=== PATIENT | female | born 1975 | race Caucasian/White ===

== ENCOUNTER 2018-03-22 18:03 | Emergency (ER) | payer OTHER ==
[2018-03-22 19:41] LABS: ABS Basophils 0.1 10^3/ul (0-0.2); ABS Eosinophils 0.3 10^3/ul (0-0.6); ABS Lymphocytes 1.5 10^3/ul (1.0-4.8); ABS Monocytes 0.6 10^3/ul (0-0.8); ABS Neutrophils 6.7 10^3/ul (1.5-7.7); ABS Nucleated RBC 0 10^3/ul; Eosinophil % 2.7 % (0-6); Hematocrit 35 % (35-47); Hemoglobin 11.8 g/dl (12.0-16.0); Lymphocyte % 16.7 % (25-47); Mean Corpuscular HGB Conc 34 g/dl (31-36); Mean Corpuscular Hemoglobin 29 pg (27-31); Mean Corpuscular Volume 87 fL (80-97); Mean Platelet Volume 8.3 um3 (7.4-10.4); Nucleated Red Blood Cells % 0; Platelet Count 315 10^3/ul (150-450); Red Blood Count 4.04 10^6/ul (4.00-5.40); Red Cell Distribution Width 14 % (10.5-15); White Blood Count 9.2 10^3/ul (3.5-10.8)
[2018-03-22 19:58] LABS: Urine Appearance Cloudy; Urine Blood Negative (Negative); Urine Color Amber; Urine Ketones Negative (Negative); Urine Protein Negative (Negative); Urine Specific Gravity 1.015 (1.010-1.030); Urine Urobilinogen Positive (Negative)
[2018-03-22 20:03] LABS: EGFR Non-African American 71.8 (>60)
--- NOTE | 2018-03-22 20:26 | ED ---
Skin Complaint - HPI Summary HPI Summary: Complains of chronic bilateral lower extremity edema and swelling with new onset redness x 3 weeks. Patient states she's been diagnosed by pcp with cellulitis, has tried Keflex 2 weeks, then Bactrim 7 days with no improvement in symptoms. Patient on Lasix 20mg Q am for chronic lower extremity edema. Patient also states left side back pain, dec urinating, headache. History of headaches, states this headache is the same as her normal headache. Denies fever, cough, sore throat, CP, SOB, N/V/D, abdomen pain, change in urine or vaginal symptoms. Medical history is hypothyroid. History of kidney stones. Positive smoker, occasional EtOH, denies illegal drug use. States hard to exercise due to chronic back pain. - History of Current Complaint Chief Complaint: EDGeneral Time Seen by Provider: 03/22/18 18:25 Stated Complaint: BOTH LEGS SWOLLEN/LT FLANK PAIN Hx Obtained From: Patient Onset/Duration: Started Weeks Ago Timing: Constant Onset Severity: Mild Current Severity: Severe Pain Intensity: 9 Pain Scale Used: 0-10 Numeric Skin Location: Discrete, Leg Aggravating Symptom(s): Touch Alleviating Symptom(s): Nothing Associated Signs & Symptoms: Tenderness Related History: Use of Diuretics - Allergy/Home Medications Allergies/Adverse Reactions: Allergies Allergy/AdvReac Type Severity Reaction Status Date / Time bismuth subsalicylate Allergy Rash And Verified 03/22/18 18:26 [From Pepto-Bismol] Itching codeine Allergy Altered Verified 03/22/18 18:26 Mental Status diphenhydramine Allergy Hives Verified 03/22/18 18:26 [From Benadryl Allergy/Cold] fish oil Allergy Unknown Verified 03/22/18 18:26 Reaction Details lorazepam [From Ativan] Allergy Hives Verified 03/22/18 18:26 povidone-iodine Allergy Hives Verified 03/22/18 18:26 [From Betadine] soap [From Betadine] Allergy Hives Verified 03/22/18 18:26 sorbitol Allergy Anaphylatic Verified 03/22/18 18:26 Shock famotidine [From Pepcid] AdvReac Nausea And Verified 03/22/18 18:26 Vomiting ADHESIVE TAPE Allergy Severe Blisters Uncoded 03/22/18 18:26 ANTIHISTAMINES Allergy Severe Hives Uncoded 03/22/18 18:26 IODINE Allergy Severe Hives Uncoded 03/22/18 18:26 SHELLFISH Allergy Severe Anaphylatic Uncoded 03/22/18 18:26 Shock PMH/Surg Hx/FS Hx/Imm Hx Endocrine/Hematology History: Reports: Hx Thyroid Disease - hypothyroidism, Hx Anemia Denies: Hx Anticoagulant Therapy, Hx Bone Marrow Disease, Hx Diabetes, Hx Sickle Cell Disease Cardiovascular History: Denies: Hx Hypertension, Hx Pacemaker/ICD Respiratory History: Reports: Hx Asthma - CHILD GI History: Reports: Hx Gall Bladder Disease History: Reports: Hx Kidney Infection, Hx Kidney Stones - PASSED SEVERAL LITHO STENTS Denies: Hx Renal Disease Musculoskeletal History: Reports: Hx Arthritis, Hx Back Problems - Chronic Sensory History: Denies: Hx Contacts or Glasses, Hx Hearing Aid Opthamlomology History: Denies: Hx Contacts or Glasses Neurological History: Reports: Hx Headaches, Hx Migraine, Other Neuro Impairments/Disorders - MULTIPLE BACK INJURIES OVER THE YEARS DUE TO STRENOUS JOB. Psychiatric History: Reports: Hx Depression Denies: Hx Panic Disorder - Surgical History Surgery Procedure, Year, and Place: 1988 L 4TH TOE [place]. 1997 L THUMB [facility] [place]. 1998 L HAND [place]. 2005 APPY [facility] [place]. 2009 KRISTY [facility] [place]. 2011 STENT LITHO [facility] [place]. 2011 ONE STENT AND LITHO [facility] [place]. 2012 LEEP [facility] [place]. 2017 LEFT HIP ABCESS Hx Anesthesia Reactions: No Infectious Disease History: No Infectious Disease History: Denies: Traveled Outside the [place] in Last 30 Days - Social History Alcohol Use: None Substance Use Type: Reports: Marijuana Substance Use Comment - Amount & Last Used: On suboxone Smoking Status (MU): Light Every Day Tobacco Smoker Type: Cigarettes Amount Used/How Often: 5 cigarettes/day Have You Smoked in the Last Year: Yes Review of Systems Constitutional: Negative Eyes: Negative ENT: Negative Cardiovascular: Negative Respiratory: Negative Gastrointestinal: Negative Positive: flank pain Musculoskeletal: Negative Skin: Negative Neurological: Negative Psychological: Normal All Other Systems Reviewed And Are Negative: Yes Physical Exam - Summary Physical Exam Summary: Bilateral lower extremity edema with areas of purple thickened skin. No extra warmth, ulcers, weeping noted to the feet, ankles.. PMS intact distally on both lower extremities. Bilateral calves soft nontender, no erythema. Positive active flexion and extension of bilateral ankles and knees. No evidence of trauma. Triage Information Reviewed: Yes Vital Signs On Initial Exam: Initial Vitals Temp Pulse Resp BP Pulse Ox 98.9 F 83 18 109/50 100 03/22/18 18:07 03/22/18 18:07 03/22/18 18:07 03/22/18 18:07 03/22/18 18:07 Vital Signs Reviewed: Yes Appearance: Positive: Well-Appearing Skin: Positive: Warm Head/Face: Positive: Normal Head/Face Inspection Eyes: Positive: Normal Neck: Positive: Supple Respiratory/Lung Sounds: Positive: Clear to Auscultation Cardiovascular: Positive: Normal Abdomen Description: Positive: Nontender Musculoskeletal: Positive: Normal Neurological: Positive: Normal Psychiatric: Positive: Normal AVPU Assessment: Alert - Dom Coma Scale Best Eye Response: 4 - Spontaneous Best Motor Response: 6 - Obeys Commands Best Verbal Response: 5 - Oriented Coma Scale Total: 15 Diagnostics - Vital Signs Vital Signs Temp Pulse Resp BP Pulse Ox 03/22/18 18:07 98.9 F 83 18 109/50 100 - Laboratory Lab Results: Lab Results 03/22/18 03/22/18 03/22/18 Range/Units 19:23 19:23 19:23 WBC 9.2 (3.5-10.8) 10^3/ul RBC 4.04 (4.00-5.40) 10^6/ul Hgb 11.8 L (12.0-16.0) g/dl Hct 35 (35-47) % MCV 87 (80-97) fL MCH 29 (27-31) pg MCHC 34 (31-36) g/dl RDW 14 (10.5-15) % Plt Count 315 (150-450) 10^3/ul MPV 8.3 (7.4-10.4) um3 Neut % (Auto) 72.7 (38-83) % Lymph % (Auto) 16.7 L (25-47) % Cobb % (Auto) 7.0 (0-7) % Eos % (Auto) 2.7 (0-6) % Baso % (Auto) 0.9 (0-2) % Absolute Neuts (auto) 6.7 (1.5-7.7) 10^3/ul Absolute Lymphs (auto) 1.5 (1.0-4.8) 10^3/ul Absolute Monos (auto) 0.6 (0-0.8) 10^3/ul Absolute Eos (auto) 0.3 (0-0.6) 10^3/ul Absolute Basos (auto) 0.1 (0-0.2) 10^3/ul Absolute Nucleated RBC 0 10^3/ul Nucleated RBC % 0 ESR Pending Sodium 138 (135-145) mmol/L Potassium 3.5 (3.5-5.0) mmol/L Chloride 107 (101-111) mmol/L Carbon Dioxide 22 (22-32) mmol/L Anion Gap 9 (2-11) mmol/L BUN 8 (6-24) mg/dL Creatinine 0.87 (0.51-0.95) mg/dL Est GFR ( Amer) 86.8 (>60) Est GFR (Non-Af Amer) 71.8 (>60) BUN/Creatinine Ratio 9.2 (8-20) Glucose 93 (70-100) mg/dL Lactic Acid 0.5 (0.5-2.0) mmol/L Calcium 9.4 (8.6-10.3) mg/dL Total Bilirubin 0.30 (0.2-1.0) mg/dL AST 37 (13-39) U/L ALT 43 (7-52) U/L Alkaline Phosphatase 104 (34-104) U/L C-Reactive Protein 10.76 H (<8.01) mg/L Total Protein 7.2 (6.4-8.9) g/dL Albumin 4.1 (3.2-5.2) g/dL Globulin 3.1 (2-4) g/dL Albumin/Globulin Ratio 1.3 (1-3) Beta HCG, Quant < 0.60 mIU/mL Urine Color Urine Appearance Urine pH (5-9) Ur Specific [place] (1.010-1.030) Urine Protein (Negative) Urine Ketones (Negative) Urine Blood (Negative) Urine Nitrate (Negative) Urine Bilirubin (Negative) Urine Urobilinogen (Negative) Ur Leukocyte Esterase (Negative) Urine Glucose (Negative) 03/22/18 Range/Units 19:41 WBC (3.5-10.8) 10^3/ul RBC (4.00-5.40) 10^6/ul Hgb (12.0-16.0) g/dl Hct (35-47) % MCV (80-97) fL MCH (27-31) pg MCHC (31-36) g/dl RDW (10.5-15) % Plt Count (150-450) 10^3/ul MPV (7.4-10.4) um3 Neut % (Auto) (38-83) % Lymph % (Auto) (25-47) % Cobb % (Auto) (0-7) % Eos % (Auto) (0-6) % Baso % (Auto) (0-2) % Absolute Neuts (auto) (1.5-7.7) 10^3/ul Absolute Lymphs (auto) (1.0-4.8) 10^3/ul Absolute Monos (auto) (0-0.8) 10^3/ul Absolute Eos (auto) (0-0.6) 10^3/ul Absolute Basos (auto) (0-0.2) 10^3/ul Absolute Nucleated RBC 10^3/ul Nucleated RBC % ESR Sodium (135-145) mmol/L Potassium (3.5-5.0) mmol/L Chloride (101-111) mmol/L Carbon Dioxide (22-32) mmol/L Anion Gap (2-11) mmol/L BUN (6-24) mg/dL Creatinine (0.51-0.95) mg/dL Est GFR ( Amer) (>60) Est GFR (Non-Af Amer) (>60) BUN/Creatinine Ratio (8-20) Glucose (70-100) mg/dL Lactic Acid (0.5-2.0) mmol/L Calcium (8.6-10.3) mg/dL Total Bilirubin (0.2-1.0) mg/dL AST (13-39) U/L ALT (7-52) U/L Alkaline Phosphatase (34-104) U/L C-Reactive Protein (<8.01) mg/L Total Protein (6.4-8.9) g/dL Albumin (3.2-5.2) g/dL Globulin (2-4) g/dL Albumin/Globulin Ratio (1-3) Beta HCG, Quant mIU/mL Urine Color Jennifer Urine Appearance Cloudy Urine pH 6.0 (5-9) Ur Specific [place] 1.015 (1.010-1.030) Urine Protein Negative (Negative) Urine Ketones Negative (Negative) Urine Blood Negative (Negative) Urine Nitrate Negative (Negative) Urine Bilirubin Negative (Negative) Urine Urobilinogen Positive A (Negative) Ur Leukocyte Esterase Negative (Negative) Urine Glucose Negative (Negative) Result Diagrams: 03/22/18 19:23 03/22/18 19:23 Lab Statement: Any lab studies that have been ordered have been reviewed, and results considered in the medical decision making process. Course/Dx - Course Course Of Treatment: Complains of chronic bilateral lower extremity edema and swelling with new onset redness x 3 weeks. Patient states she's been diagnosed by pcp with cellulitis, has tried Keflex 2 weeks, then Bactrim 7 days with no improvement in symptoms. Patient on Lasix 20mg Q am for chronic lower extremity edema. Patient also states left side back pain, dec urinating, headache. History of headaches, states this headache is the same as her normal headache. Denies fever, cough, sore throat, CP, SOB, N/V/D, abdomen pain, change in urine or vaginal symptoms. Medical history is hypothyroid. History of kidney stones. Positive smoker, occasional EtOH, denies illegal drug use. Bilateral lower extremity edema with areas of purple thickened skin. No extra warmth, ulcers, weeping noted to the feet, ankles.. PMS intact distally on both lower extremities. Bilateral calves soft nontender, no erythema. Positive active flexion and extension of bilateral ankles and knees. No evidence of trauma. No improvement with 2 courses of antibiotics. Vital signs normal. Labs unremarkable. CVA/flank tenderness but no indication of infection or hematuria in urine or labs. No indication of dehydration. ROVERTO stockings here in the ED. Rx for compression stockings. Recommend increase exercise and follow-up with primary care. - Diagnoses Provider Diagnoses: Stasis dermatitis of both legs, Venous insufficiency Discharge - Sign-Out/Discharge Documenting (check all that apply): Discharge/Admit/Transfer - Discharge Plan Condition: Stable Disposition: HOME Patient Education Materials: Stasis Dermatitis (ED), Venous Insufficiency (DC) , Leg Edema (ED) Referrals: Neri Lancaster MD [Primary Care Provider] - Additional Instructions: Exercising and movement helps reduce swelling in lower extremities. Elevate legs when sitting down. Compression stockings can also help. Follow-up with primary care. Return to the ED for any new or worsening symptoms - Billing Disposition and Condition Condition: STABLE Disposition: Home
--- NOTE | 2018-03-22 20:59 | ED ---
Progress - Progress Note Progress Note: I supervised the care of the physician nurse practitioner physician assistant and I performed a history and physical on this patient History: Chronic lower extremity edema now with dark purple changes on both legs. No fever. No wounds or skin breakdown. No improvement with Lasix or antibiotics. Physical exam: 2-3+ bilateral lower extremity edema with pitting and chronic stasis changes with purple discoloration in the lower legs bilaterally Plan: Stasis dermatitis secondary to venous insufficiency. Continue Lasix, ROVERTO stockings placed here. Increase walking. Follow-up primary care physician. Course/Dx - Course Course Of Treatment: Complains of chronic bilateral lower extremity edema and swelling with new onset redness x 3 weeks. Patient states she's been diagnosed by pcp with cellulitis, has tried Keflex 2 weeks, then Bactrim 7 days with no improvement in symptoms. Patient on Lasix 20mg Q am for chronic lower extremity edema. Patient also states left side back pain, dec urinating, headache. History of headaches, states this headache is the same as her normal headache. Denies fever, cough, sore throat, CP, SOB, N/V/D, abdomen pain, change in urine or vaginal symptoms. Medical history is hypothyroid. History of kidney stones. Positive smoker, occasional EtOH, denies illegal drug use. Bilateral lower extremity edema with areas of purple thickened skin. No extra warmth, ulcers, weeping noted to the feet, ankles.. PMS intact distally on both lower extremities. Bilateral calves soft nontender, no erythema. Positive active flexion and extension of bilateral ankles and knees. No evidence of trauma. No improvement with 2 courses of antibiotics. Vital signs normal. Labs unremarkable. CVA/flank tenderness but no indication of infection or hematuria in urine or labs. No indication of dehydration. ROVERTO stockings here in the ED. Rx for compression stockings. Recommend increase exercise and follow-up with primary care. - Diagnoses Provider Diagnoses: Stasis dermatitis of both legs, Venous insufficiency Discharge - Sign-Out/Discharge Documenting (check all that apply): Discharge/Admit/Transfer - Discharge Plan Condition: Stable Disposition: HOME Patient Education Materials: Stasis Dermatitis (ED), Leg Edema (ED), Venous Insufficiency (DC) Referrals: Neri Lancaster MD [Primary Care Provider] - Additional Instructions: Exercising and movement helps reduce swelling in lower extremities. Elevate legs when sitting down. Compression stockings can also help. Follow-up with primary care. Return to the ED for any new or worsening symptoms - Billing Disposition and Condition Condition: STABLE Disposition: Home
[2018-03-22 21:28] VITALS: BP 112/60
== END 2018-03-22 21:29 | disposition home or self-care (01) ==
LOC: ED 18:03
DX: I87.2 Venous insufficiency (chronic) (peripheral) (principal); F17.210 Nicotine dependence, cigarettes, uncomplicated; Z87.442 Personal history of urinary calculi; R60.0 Localized edema; Z88.5 Allergy status to narcotic agent
CPT/HCPCS: 36415; 80053; 81003; 83605; 84702; 85025; 85652; 86140; 87040; 99282

== ENCOUNTER 2018-11-17 13:55 | Emergency (ER) | payer MEDICARE, MEDICAID ==
[2018-11-17] MEDS ORDERED: NS 0.9% 1000 ML** 1,000 ML IV ONE (14:02)
[2018-11-17] MEDS ORDERED: Albuterol 2.5 MG/3 ML NEB.SOL* (0.083%) INH ONE ×3 (14:02)
[2018-11-17] MEDS ORDERED: methylPREDNISolone 125 MG* 2 ML VIAL IV ONE (14:02)
--- NOTE | 2018-11-17 14:24 | UC ---
UC General HPI - HPI Summary HPI Summary: Pt presents to radiology for eval of reaction. Pt with know allergies to shellfish, antihistamines. Pt had outpt CT wiht contrast. pt states felt okay during procesure. subsequently felt a tickle in throat,c hest tightness and wheeze. no treatment WINDER HAND in UC. No hives, no facial or intraoral edema. pt not meds and allergies reviewed - History of Current Complaint Chief Complaint: UCAllergicReaction Stated Complaint: MED REACTION Time Seen by Provider: 11/17/18 14:01 Hx Obtained From: Patient Hx Last Menstrual Period: 11/03/18 Onset/Duration: Sudden Onset Pain Intensity: 4 - Allergy/Home Medications Allergies/Adverse Reactions: Allergies Allergy/AdvReac Type Severity Reaction Status Date / Time diphenhydramine Allergy Severe Shortness Verified 11/17/18 14:00 [From Benadryl Allergy/Cold] of Breath fish oil Allergy Severe Vomiting Verified 11/17/18 14:00 Iodinated Contrast- Oral and Allergy Severe Difficulty Verified 11/17/18 14:20 IV Dye Breathing lorazepam [From Ativan] Allergy Intermediate Vomiting Verified 11/17/18 14:00 bismuth subsalicylate Allergy Rash And Verified 11/17/18 14:00 [From Pepto-Bismol] Itching codeine Allergy Altered Verified 11/17/18 14:00 Mental Status povidone-iodine Allergy Hives Verified 11/17/18 14:00 [From Betadine] soap [From Betadine] Allergy Hives Verified 11/17/18 14:00 sorbitol Allergy Anaphylatic Verified 11/17/18 14:00 Shock famotidine [From Pepcid] AdvReac Nausea And Verified 11/17/18 14:00 Vomiting ADHESIVE TAPE Allergy Severe Blisters Uncoded 11/17/18 14:00 ANTIHISTAMINES Allergy Severe Hives Uncoded 11/17/18 14:00 IODINE Allergy Severe Hives Uncoded 11/17/18 14:00 SHELLFISH Allergy Severe Anaphylatic Uncoded 11/17/18 14:00 Shock PMH/Surg Hx/FS Hx/Imm Hx Previously Healthy: No - chronic back pain Other History Of: Negative For: Anticoagulant Therapy - Surgical History Surgical History: Yes Surgery Procedure, Year, and Place: 1988 L [facility]TH [place]E [place]. 1997 L THUMB [facility]. 1999 L HAND [place]. 2005 APPY [facility] [place]. 2009 KRISTY [facility] [place]. 2011 STENT LITHO [facility] [place]. 2011 ONE STENT AND LITHO [facility] [place]. 2012 LEEP [facility] [place]. 2017 LEFT HIP ABCESS - Social History Occupation: Disabled Lives: With Family Alcohol Use: None Substance Use Type: Marijuana Substance Use Comment - Amount & Last Used: On suboxone Smoking Status (MU): Former Smoker Type: Cigarettes Amount Used/How Often: 5 cigarettes/day Have You Smoked in the Last Year: Yes Household Exposure Type: Cigarettes - Immunization History Most Recent Influenza Vaccination: never Most Recent Tetanus Shot: 2010 Most Recent Pneumonia Vaccination: Pt denied Review of Systems All Other Systems Reviewed And Are Negative: Yes Constitutional: Positive: Negative Skin: Negative: Rash Respiratory: Positive: Shortness Of Breath Cardiovascular: Positive: Chest Pain Physical Exam - Summary Physical Exam Summary: Vital Signs Reviewed: Yes A+Ox3, mildly anxious Eyes: Conjunctiva Clear, LEIGH. EOM intact and full ENT: Hearing grossly normal TM x 2 clear, mmoist, uvula midline, no exudate, no erythema, no intra-oral edema Neck: Positive: Supple Respiratory: Positive: No respiratory distress, No accessory muscle use + CTA throughout no w/r Cardiovascular: RRR nl s1, s2 no m/r CBT <2 sec abd soft + BS nt/nd no guarding, no distension Musculoskeletal Exam: RAM x 4 without difficulty Strength Intact, ROM Intact Neurological: Positive: Alert, + sensation throughout Psychological: Positive: Normal Response To Family Skin: Positive: no rash, no ecchymosis Triage Information Reviewed: Yes Vital Signs: Initial Vital Signs Temp 98.4 F 11/17/18 13:56 Pulse 88 11/17/18 13:56 Resp 14 11/17/18 13:56 BP 122/73 11/17/18 13:56 Pulse Ox 100 11/17/18 13:56 Re-Evaluation - Re-Evaluation First Eval Change: Improved - Pt states feels better following neb, vss - close reassessment Second Eval Change: Worse - Pt states feeling tight again in chest ad throat scratchy will give second albuterol vss -hold on epi call [facility] for transfer report Dr. Childers in ED Course/Dx - Course Course Of Treatment: states has chest tightness, sob, and throat scratchy following IV contrast dye. Pt with stable vs. Will give IVF, oxygen, albuterol, and solumendrol. Pt allergic to pepcid and benadryl. Epi at bedside. close monitoring and reassessment - Diagnoses Provider Diagnosis: Reaction to contrast media Discharge - Sign-Out/Discharge Documenting (check all that apply): Patient Departure All imaging exams completed and their final reports reviewed: No Studies - Discharge Plan Condition: Improved Disposition: TRANS HIGHER LVL OF CARE FAC Referrals: Neri Lancaster MD [Primary Care Provider] - - Billing Disposition and Condition Condition: IMPROVED Disposition: Trans Higher Lvl of Care Fac
[2018-11-17 14:42] VITALS: BP 122/60
[2018-11-17] MEDS ORDERED: EPINEPHRINE 1 MG/ML 1 ML VIAL ONE (14:47)
== END 2018-11-17 14:43 | disposition short-term general hospital (02) ==
LOC: UCEAST 13:55
DX: R07.89 Other chest pain (principal); R06.02 Shortness of breath; J39.2 Other diseases of pharynx; T50.8X5A Adverse effect of diagnostic agents, initial encounter; Y92.9 Unspecified place or not applicable; Z91.09 Other allergy status, other than to drugs and biological substances; Z88.5 Allergy status to narcotic agent; Z91.041 Radiographic dye allergy status; Z91.013 Allergy to seafood; Z91.018 Allergy to other foods; Z87.891 Personal history of nicotine dependence
CPT/HCPCS: 96374; 99214; G0463; J2930

== ENCOUNTER 2018-11-17 14:57 | Emergency (ER) | payer MEDICARE, MEDICAID ==
[2018-11-17] MEDS ORDERED: hydrOXYzine IM* 50 MG/ML VIAL IM ONE (15:03)
[2018-11-17] MEDS ORDERED: EPINEPHRINE 1 MG/ML 1 ML VIAL IM ONE (15:03)
[2018-11-17] MEDS ORDERED: EPINEPHRINE 1 MG/ML 1 ML VIAL ONE (15:04)
[2018-11-17] MEDS ORDERED: Albuterol/Ipratropium NEB.SOL* Albuterol 2.5 MG/Ipratropium 0.5 MG 3 ML INH ONE (15:10)
[2018-11-17] MEDS ORDERED: Albuterol/Ipratropium NEB.SOL* Albuterol 2.5 MG/Ipratropium 0.5 MG 3 ML ONE (15:12)
--- NOTE | 2018-11-17 15:14 | ED ---
Allergic Reaction/Systemic - HPI Summary HPI Summary: Pt is a 43 y/o female brought in by EMS who presents to the ED c/o SOB. She was sent here by Dr. Blackman from for an anaphylactic reaction. Pt received IV contrast for a CT, and shortly afterwards her sx began. Pt c/o SOB, and paresthesia and tightness of her chest and throat. She was given 125 mg of Solumedrol and 2 Albuterol treatments, which temporarily relieved her sx. Pt denies any fever, chills, erythema of eyes, sore throat, CP, cough, abdominal pain, N/V, dysuria, hematuria, myalgia, edema, rash, or dizziness. Pt has many allergies, which include diphenhydramine, lorazepam, bismuth subsalicylate, codeine, povidone-iodine, betadine, sorbitol, famotidine, and antihistamines. She denies any prior hospitalization related to allergies. PMHx asthma, but denies any cardiac disease. - History of Current Complaint Hx Obtained From: Patient Hx Last Menstrual Period: 11/03/18 Onset/Duration: Sudden Onset, Started hours ago - [employer], Still Present Timing: Constant Location: Discrete @ - throat/chest Aggravating Factor(s): Other - IV contrast Alleviating Factor(s): Other - Solumedrol and Albuterol Associated Signs And Symptoms: Positive: Difficulty Breathing, Throat Tightening - Allergies/Home Medications Allergies/Adverse Reactions: Allergies Allergy/AdvReac Type Severity Reaction Status Date / Time diphenhydramine Allergy Severe Shortness Verified 11/17/18 14:00 [From Benadryl Allergy/Cold] of Breath fish oil Allergy Severe Vomiting Verified 11/17/18 14:00 Iodinated Contrast- Oral and Allergy Severe Difficulty Verified 11/17/18 14:20 IV Dye Breathing lorazepam [From Ativan] Allergy Intermediate Vomiting Verified 11/17/18 14:00 bismuth subsalicylate Allergy Rash And Verified 11/17/18 14:00 [From Pepto-Bismol] Itching codeine Allergy Altered Verified 11/17/18 14:00 Mental Status povidone-iodine Allergy Hives Verified 11/17/18 14:00 [From Betadine] soap [From Betadine] Allergy Hives Verified 11/17/18 14:00 sorbitol Allergy Anaphylatic Verified 11/17/18 14:00 Shock famotidine [From Pepcid] AdvReac Nausea And Verified 11/17/18 14:00 Vomiting ADHESIVE TAPE Allergy Severe Blisters Uncoded 11/17/18 14:00 ANTIHISTAMINES Allergy Severe Hives Uncoded 11/17/18 14:00 IODINE Allergy Severe Hives Uncoded 11/17/18 14:00 SHELLFISH Allergy Severe Anaphylatic Uncoded 11/17/18 14:00 Shock PMH/Surg Hx/FS Hx/Imm Hx Endocrine/Hematology History: Reports: Hx Thyroid Disease - hashimotos, Hx Anemia Denies: Hx Anticoagulant Therapy, Hx Bone Marrow Disease, Hx Diabetes, Hx Sickle Cell Disease Cardiovascular History: Denies: Hx Hypertension, Hx Pacemaker/ICD Respiratory History: Reports: Hx Asthma - CHILD GI History: Reports: Hx Gall Bladder Disease History: Reports: Hx Kidney Infection, Hx Kidney Stones - PASSED SEVERAL LITHO STENTS Denies: Hx Dialysis, Hx Renal Disease Musculoskeletal History: Reports: Hx Arthritis, Hx Back Problems - Chronic Sensory History: Denies: Hx Contacts or Glasses, Hx Hearing Aid Opthamlomology History: Denies: Hx Contacts or Glasses Neurological History: Reports: Hx Headaches, Hx Migraine, Other Neuro Impairments/Disorders - MULTIPLE BACK INJURIES OVER THE YEARS DUE TO STRENOUS JOB. Psychiatric History: Reports: Hx Depression, Hx Panic Disorder - Surgical History Surgery Procedure, Year, and Place: 1988 L 4TH [place]. 1997 [place] [facility] [place] L [place]. 2005 APPY [facility] [place] 2008 KRISTY [facility] [place]. 2010 STENT LITHO [facility] [place]. 2010 ONE STENT AND LITHO [facility] [place]. 2012 L[place] [facility] [place]. 2017 LEFT HIP ABCESS Hx Anesthesia Reactions: No Infectious Disease History: Denies: Traveled Outside the in Last 30 Days - Family History Known Family History: Positive: Other - migraines, breast/uterine CA - Social History Alcohol Use: None Substance Use Type: Reports: Marijuana Substance Use Comment - Amount & Last Used: On suboxone Smoking Status (MU): Former Smoker Type: Cigarettes Amount Used/How Often: 5 cigarettes/day Have You Smoked in the Last Year: Yes Review of Systems Negative: Fever, Chills Negative: Erythema Positive: Other - tightness of throat/chest. Negative: Sore Throat Negative: Chest Pain Positive: Shortness Of Breath. Negative: Cough Negative: Abdominal Pain, Nausea Negative: dysuria, hematuria Negative: Myalgia, Edema Negative: Rash Neurological: Other - NEGATIVE: dizziness Positive: Paresthesia - chest/throat All Other Systems Reviewed And Are Negative: Yes Physical Exam - Summary Physical Exam Summary: Constitutional: Well-developed, Well-nourished, Alert. (-) Distressed Skin: Warm, Dry HENT: Normocephalic; Atraumatic Eyes: Conjunctiva normal Neck: Musculoskeletal ROM normal neck. (-) JVD, (-) Stridor, (-) Tracheal deviation Cardio: Rhythm regular, rate normal, Heart sounds normal; Intact distal pulses; The pedal pulses are 2+ and symmetric. Radial pulses are 2+ and symmetric. (-) Murmur Pulmonary/Chest wall: Effort normal. (-) Respiratory distress, (+) Wheezes, (-) Rales Abd: Soft, (-) epigastric tenderness, (-) Distension, (-) Guarding, (-) Rebound Musculoskeletal: (-) Edema Lymph: (-) Cervical adenopathy Neuro: Alert, Oriented x3 Psych: Mood and affect Normal Triage Information Reviewed: Yes Vital Signs Reviewed: Yes Re-Evaluation - Re-Evaluation First Eval Re-Evaluation Time: 16:20 Change: Improved Comment: Pts wheezes have resolved, she is feeling much better. Will observe for a total of 3 hours. Allergic Reaction Course/Dx - Course Course Of Treatment: Pt is a 43 y/o female brought in by EMS who presents to the ED c/o anaphylactic reaction to IV contrast dye. A physical exam revealed wheezes. Pts sx resolved after having a breathing treatment. The anaphylaxis was successfully aborted with Epinephrine. There was no return of symptoms. Pt is discharged with final dx of anaphylaxis and allergic reaction to contrast dye. She is agreeable with this plan. - Diagnoses Provider Diagnoses: Anaphylaxis, Allergic reaction to contrast dye Discharge - Sign-Out/Discharge Documenting (check all that apply): Patient Departure - Discharge Patient Received Moderate/Deep Sedation with Procedure: No - Discharge Plan Condition: Improved Disposition: HOME Prescriptions: EPINEPHrine [Epipen] 0.3 mg IJ ONCE PRN #2 auto.injct PRN Reason: Allergy Symptoms predniSONE TAB* [Deltasone TAB*] 50 mg PO DAILY #3 tab Patient Education Materials: Anaphylaxis (ED) Referrals: Neri Lancaster MD [Primary Care Provider] - (2-3 days) Additional Instructions: RETURN TO THE EMERGENCY DEPARTMENT FOR CHANGING OR WORSENING SYMPTOMS - Attestation Statements Document Initiated by Scribe: Yes Documenting Scribe: Concepcion Askew Provider For Whom Scribe is Documenting (Include Credential): Andrew Childers MD Scribe Attestation: Concepcion Kamara, scribed for Andrew Childers MD on 11/17/18 at 1758. Status of Scribe Document: Ready
[2018-11-17 18:14] VITALS: BP 99/67
== END 2018-11-17 18:13 | disposition home or self-care (01) ==
LOC: ED 14:57
DX: T88.6XXA Anaphylactic reaction due to adverse effect of correct drug or medicament properly administered, initial encounter (principal); R06.02 Shortness of breath; R07.89 Other chest pain; R20.2 Paresthesia of skin; T50.8X5A Adverse effect of diagnostic agents, initial encounter; Y92.532 Urgent care center as the place of occurrence of the external cause; Z91.041 Radiographic dye allergy status; Z88.5 Allergy status to narcotic agent; Z91.013 Allergy to seafood; Z88.8 Allergy status to other drugs, medicaments and biological substances; Z91.048 Other nonmedicinal substance allergy status; Z87.891 Personal history of nicotine dependence; J39.2 Other diseases of pharynx; Z91.09 Other allergy status, other than to drugs and biological substances
CPT/HCPCS: 96372; 99282; A9270-GY; J3410

== ENCOUNTER → 2019-03-15 17:45 | Observation (INO) | payer MEDICARE, MEDICAID ==
--- OUTSIDE RECORDS SUMMARY | 2019-03-14 05:58 | XMS REPORT | Continuity of Care Document ---
:1975 External Reference #:[id number] Author Name Naila Meza Care Team Providers Name Role Phone HCP given Primary Care Physician Unavailable Payers Date Identification Numbers Payment Provider Subscriber Effective: Policy Number: [id number] [facility] Birgit Lorenzanae 2018 PayID: [id number] [address] [place] [address] Effective: 2015 Policy Number: [id number] [facility] Birgit Keating Expires: 2018 PayID: [id number] [address] [place] [address] Policy Number: [id number] Medicaid Birgit Keating PayID: [id number] [address] [place] [address] Problems Active Problems Provider Date Hypothyroidism Neri Lancaster M.D. Onset: 08/29/2010 Migraine with typical aura Neri Lancaster M.D. Onset: 08/29/2010 Low back pain Neri Lancaster M.D. Onset: 11/11/2011 Degeneration of lumbar intervertebral disc Neri Lancaster M.D. Onset: 06/17 Dysthymia Neri Lancaster M.D. Onset: 01/05/2018 Family History Date Family Member(s) Observation Comments General Cervical Cancer Sister in her late 30s (as of 07/27 she is dying of this) General Thyroid Disease Sister w/ hypothyroidism; Mom had thyroidectomy b/o "it wasn't working". General Rheumatoid Arthritis Sister (1yr younger) since age 2 Father Polycystic Kidney diagnosed in his early Disease 70s Number of Children 4 First Son Kaushal Duckworth 08/21/09 First Daughter Yanelis Miner 01/29/00 Second Daughter Torrie 05/15/06 Third Daughter Lesli Duckworth Third Daughter 02/10/11 Number of Siblings Siblings: 6 (3 brothers and 3 sisters). 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) Hand Dominance 03/03/2019 Right-handed Advance Directive 08/02/2007 Health Care Proxy pt states she has a HCP Tobacco Use Start: Unknown current cigarette /2 ppd smoker ETOH Use Rarely consumes alcohol Tobacco Use Start: Unknown Non Smoker recently stopped for surgery Smoking Status Reviewed: 03/03/19 Non Smoker recently stopped for surgery Age 1st [place] 17 Years Old # [facility] 5[facility]10 Lifetime Allergies, Adverse Reactions, Alerts Active Allergies Reaction Severity Comments Date Codeine blackouts and violent 08/02/2007 Ativan rash,vomitting 08/02/2007 Anti-Hist 08/02/2007 Pepcid 08/02/2007 Pepto Bismol 08/02/2007 Shellfish 08/02/2007 control pills 08/02/2007 Benadryl 08/29/2010 Iodine 07/05/2012 Adhesives 09/05/2012 Aspartame 03/07/2013 Betadine causes welts 06/17/2015 ALL Types Of Fish 06/17/[address] scan 11/21/2018 Medications Active Medications SIG Qnty Indications Ordering Provider Date Chantix 1 pill twice 60tabs F17.210 Neri Lancaster, 10/14/2018 1mg Tablets daily to assist M.D. with smoking cessation; take with food Buprenorphine take 1/2 tablet 60tabs M54.5 Neri Lancaster, 02/02/2018 HCL-Naloxone HCL by mouth four M.D. 8-2mg times a day for Tablets Sub chronic pain; Rx due 02/23/19 F11.23 M51.36 Bupropion HCL ER (XL) take 1 tablet by 30tabs F34.1 Neri Lancaster, 01/05 mouth every morning M.D. 150mg Tablets ER 24HR for Mood Tizanidine HCL 1 by mouth three 90tabs M54.5 Neri Lancaster, 12/01/2017 4mg times a day as M.D. Tablets needed for muscle spasms Topiramate take 1 tablet by 60tabs G43.109 Neri Lancaster, 08/03/2017 50mg Tablets mouth twice a day M.D. to Reduce Migraine Frequency Ibuprofen take 1 tablet by 90tabs G43.109 Neri Lancaster, 05/28/2017 800mg Tablets mouth every 8 hours M.D. if needed for Severe Headaches Furosemide take 1 tablet by 30tabs R60.0 Neri Lancaster, 02/06/2017 20mg Tablets mouth every morning M.D. if needed for Leg Swelling Baclofen 1 by mouth up to 120tabs M51.36 Neri Lancaster, 01/18/2017 20mg Tablets every 6 hours for M.D. back pain/muscle spasms M54.5 Levothyroxine Sodium take one tablet by 30tabs E03.9 Neri Lancaster, 150mcg mouth every morning M.D. Tablets on an empty stomach; for thyroid; blood test due summer 2018 Escitalopram Oxalate take 1 tablet by 30tabs F34.1 Neri Lancaster, 2016 20mg mouth once daily for M.D. Tablets mood Sudafed 1 three times a day Unknown 30mg Tablets to four times a day for congestions and st as Needed History Medications Sulfamethoxazole/Trimethoprim DS 1 tab by 14tabs L03.116 Lolly, 2017 - 800-160mg mouth twice a Dejuan, D.O. 03/22/2018 Tablets day x7 days Cephalexin take one 40caps L03.116 Anisha, 03/04/2018 - 500mg Capsules capsule by Neri, 03/16/2018 mouth every 6 M.D. hours for left lower leg cellulitis Tizanidine HCL 1 tab by 90caps Anisha, 10/03/2017 - 4mg Capsules mouth three Neri, 12/01/2017 times a day M.D. as needed for muscle spasms Topiramate 1 daily in 120tabs G43.109 Anisha, 06/30/2017 - 25mg Tablets the evening Neri, 08/03/2017 for 1 week, M.D. then 1 pill 2x/d for 1wk, then 1 in morning and 2 in ozzie for 1 week, then 2 pills 2x/d Zomig 2.5mg 1 at onset of 18tabs G43.109 Sildannie, 04/2017 - Tablets migraine, january Neri, 04/29/2018 repeat after M.D. 2 hours if headache partially relieved; use max of 3 days/wk Hydromorphone HCL ER 1 by mouth 30units M51.36 Sildannie, 04/06/2017 - 16mg T24a every morning Neri 02/02/2018 for chronic M.D. pain M54.5 Hydromorphone HCL ER 1 by mouth once a 10units M51.36 Silcoluis, 03/29/2017 - day, at same time Shea He 04/06/2017 8mg T24a every day, for chronic pain Hydromorphone HCL 1 by mouth every 8 90tabs M54.5 Silcoff, 03/29/2017 - 4mg hours as needed for Shea He 02/02/2018 Tablets breakthrough pain M54.5 Buprenorphine 1 tablet every 120tabs M51.36 Silcoff, 03/03/2017 - HCL-Naloxone HCL 6-8hrs for chronic Shea He 03/29/2017 back pain; Rx january 8-2mg Tablets Sub be filled on or after 03/14/17; prescriber# [id number] PT For Left Shoulder evaluate and M25.512 Silcoff, 01/01/2017 - Pain And Acute On treat, modalities Shea He 08/02/2017 Chronic Low Back as needed, Pain instruct in hep M51.36 Baclofen 1 by mouth three 90tabs M51.36 Silcoff, 01/01/2017 - 20mg Tablets times a day as Shea He 01/18/2017 needed for back spasms Escitalopram Oxalate 1/2 by mouth every 30tabs F34.1 Silcoff, 09/04/2016 - day for 1 week then Shea He 11/02/2016 10mg Tablets 1 tablet daily; for mood Venlafaxine HCL ER 1 by mouth every 30tabs M51.36 Silcoluis, 07/17/2016 - morning starting Shea He 08/28/2016 75mg Tablets ER 24HR after taking the 37.5mg dose for 1 week; for mood and chronic pain Venlafaxine HCL ER 1 by mouth every day 7caps [id number] Anisha, 07/17/2016 - for 1 week then Shea He 07/24/2016 37.5mg Caps ER 24HR change to 75mg dose; for mood and chronic pain PT For Low Back please evaluate and [id number] Anisha, 07/13/2016 - Pain/DDD treat, modalities as Shea He 11/01/2016 needed, instruct in hep Duloxetine HCL 1 by mouth every day 7caps [id number] Anisha, 07/13/2016 - 30mg for 1 week then Shea He 07/17/2016 Kristie Deshpande change to 60mg dose; for mood and chronic pain Duloxetine HCL 1 by mouth every day 30caps M51.36 [facility] - 60mg (starting after 1 Shea He 07/17/2016 Kristie Deshpande week on 30mg dose); for mood and chronic pain Buprenorphine 1 tablet in the 90tabs M51.36 [facility] 07[facility]13[facility]2016 - HCL-Naloxone HCL morning and before Shea He 03/03/2017 bed, 1/2 tab at 8-2mg Tablets Sub around noon and 5 hours later prescriber# [id number] Diazepam 1 by mouth every 8 90tabs M51.36 [facility], 04/17/2016 - 5mg Tablets hours as needed for Shea He 02/05/2017 back pain/muscle spasms Buprenorphine 1/2 tab by mouth 60tabs M51.36 Silcoff, 03/31/2016 - HCL-Naloxone HCL 4x/day; for chronic Shea He 07/13/2016 pain; buprenorphine 8-2mg Tablets Sub prescriber# [id number]; rx due 06/29/16 Buprenorphine 1/2 tab by mouth 6tabs M51.36 Silcoff, 03/25/2016 - HCL-Naloxone HCL 3x/day; 1st dose Shea He 03/31/2016 03/28/16; 8-2mg Tablets Sub buprenorphine prescriber# [id number] Oxymorphone HCL ER 1 by mouth at about 30tabs M51.36 Silcoff, 02/21/2016 - 1-2pm for chronic Shea He 03/25/2016 30mg Tablets ER 12HR pain Oxymorphone HCL ER 1 by mouth every 30tabs M51.36 Silcoff, 02/21/2016 - night at around Shea He 03/25/2016 20mg Tablets ER 12HR 7-8pm for pain control; Oxymorphone HCL 1 by mouth every day 30tabs M51.36 Silcoff, 10/22/2015 - 10mg at around 4pm for Shea He 03/25/2016 Tablets back pain; rx due 02/28/16 Oxymorphone HCL 1 by mouth every 30tabs M51.36 Silcoff, 10/01/2015 - 10mg night at bedtime for Shea He 10/22/2015 Tablets back pain Oxymorphone HCL ER 1 by mouth every 30tabs M51.36 Silcoff, 09/10/2015 - evening for back Shea He 02/21/2016 30mg Tablets ER 12HR pain; may fill immediately Amitriptyline HCL take one tablet by 100tabs G47.00 Anisha, 06/17/2015 - mouth 30-60min Shea He 07/03/2015 10mg Tablets before bed forr sleep; may inc by 1 pill every 3 nights, to max of 5/night Morphine Sulfate ER 1 by mouth every day 30tabs M51.36 Sildannie, 2014 - at ~3-4pm; for Shea He 09/10/2015 30mg Tablets ER chronic back pain; due 08/18/15 M54.9 Morphine Sulfate 1 by mouth every 30tabs M51.36 Neri Lancaster, 2014 - ER morning; for Shea 03/25/2016 60mg Tablets chronic back pain ER M54.9 Morphine Sulfate 1 by mouth at same 30caps 724.2 Neri Lancaster 2014 - ER time every day (in Shea 04/22/2015 50mg Caps ER the morning); for 24HR chronic back pain 722.52 724.5 Morphine Sulfate 1 by mouth every 60tabs 724.2 Neri Lancaster, 2014 - ER morning and again Shea 05/20/2015 30mg Tablets in mid afternoon; ER for chronic back pain 722.52 724.5 Methadone HCL 3 by mouth every 724.2 Neri Lancaster, 03/20/2015 - 5mg day; decrease by 1 M.DFer 04/10/2015 Tablets pill every week until you are off of it completely Morphine Sulfate 1 by mouth every 30caps 724.2 Neri Lancaster, 2014 - ER evening; for .D. 04/22/2015 30mg Caps ER chronic pain; due 24HR 03/25/15 722.52 724.5 Levothyroxine Sodium take 1 tablet by 30tabs E03.9 Anisha, 03/05/2015 - 175mcg mouth every Shea He 11/02/2016 Tablets morning on an empty stomach Methadone HCL 8 pills/day, in 190tabs 724.2 Anisha, 03/04/2015 - 5mg Tablets 3 divided doses; Shea He 03/20/2015 decrease by 1 pill/wk; for chronic back pain Compression Stockings use daily; put 1Pair 782.3 Anisha, 03/04/2015 - 20-30 mm HG on in in the Shea He 04/03/2015 Knee High morning and off at bedtime; please also measure for the stockings. Furosemide 1 by mouth in 10tabs 782.3 Anisha, 11/30/2014 - 20mg Tablets the morning if Shea He 12/05/2014 needed for leg swelling Methadone HCL 4 tabs in 300tabs 724.2 [facility], 11/30/2014 - 5mg Tablets morning; 3 tabs Shea He 03/04/2015 in afternoon and evening; doses taken about 8 hours apart; for chronic back pain Methadone HCL 3 tabs in 240tabs 724.2 [facility], 11/11/2014 - 5mg Tablets morning and Shea He 11/30/2014 evening, 2 tabs in afternoon; doses should be split about 8 hours apart; for chronic back pain Methadone HCL 2 tabs by mouth 180tabs 724.2 Silcoluis, 09/28/2014 - 5mg Tablets every 8 hours Shea He 11/11/2014 for pain Promethazine HCL take 1 tablet by 20tabs 787.02 Silcoluis, 09/14/2014 - 25mg Tablets mouth every 4 Shea He 10/15/2014 hours as needed for nausea Methadone HCL 1.5 pills in 724.2 Silcoluis, 09/12/2014 - 5mg Tablets morning and Shea He 09/28/2014 evening, 1 pill in afternoon; doses should be spaced about 8hrs apart Methadone HCL 1 by mouth every 90tabs 724.2 Silcoluis, 09/04/2014 - 5mg Tablets 8 hours for Shea He 09/12/2014 chronic pain Hydrocodone-Acetaminophe 1 by mouth every 180tabs 724.2 Silcoff, 2013 - n 4 hours as Shea He 09/04/2014 10-325mg Tablets needed for pain Levothyroxine Sodium take 1 tablet by 42tabs 244.9 Silcoff, 08/01/2013 - 175mcg mouth in the Shea He 03/05/2015 Tablets morning on an empty stomach, 3x/wk (Wed, Wed, Wed) Levothyroxine Sodium take 1 tablet by 54tabs 244.9 Silcoluis, 08/01/2013 - 200mcg mouth in the Shea He 03/05/2015 Tablets morning on an empty stomach 4x/wk (on , , Wed and Sundays) B Complex 1 by mouth once 729.82 Silcoluis, 06/06/2013 - Tablets daily for muscle Shea He 12/05/2013 cramps; stop after a couple of months if not helpful Bactrim DS 1 by mouth twice 6tabs 599.0 Silcoluis, 06/06/2013 - 800-160mg Tablets a day for Shea He 06/09/2013 urinary tract infection Levothyroxine Sodium take 1 tablet by 90tabs 244.9 Silcoff, 12/05/2012 - 200mcg mouth in the Shea He 08/01/2013 Tablets morning on an empty stomach; blood test due mid January Levothyroxine Sodium take 1 tablet by 90tabs 244.9 Anisha, 08/16/2012 - 175mcg mouth every Shea He 12/05/2012 Tablets morning on an empty stomach; next thyroid blood test due April 2013 Levothyroxine Sodium take 1 tab in 90tabs 244.9 Anisha, 06/07/2012 - 150mcg the morning on Shea He 08/16/2012 Tablets an empty stomach; for thyroid Diazepam 1 by mouth every 90tabs M51.36 Anisha, 04/06/2012 - 5mg Tablets 8 hours as Shea He 03/30/2016 needed for back pain/muscle spasms PT For Acute On Chronic please evaluate Daniel4.2 Anisha, 04/06/2012 - Low Back Pain/DDD and treatNeri M.D. 04/26/2012 modalities prn, instruct in hep Methylprednisolone Dose take as directed 1pack 724.2 Anisha, 03/22/2012 - Pack Shea He 03/28/2012 4mg Tablets Diazepam 1/2-1 by mouth 10tabs 724.2 Anisha, 03/22/2012 - 10mg Tablets every 8 hours as Shea He 04/06/2012 needed for back pain and muscle spasms Oxycodone HCL 1/2-1 by mouth 180tabs 724.2 Anisha, 03/22/2012 - 15mg Tablets every 4 hours as Shea He 06/05/2014 needed for pain Percocet 1-2 every 4 724.2 Unknown 03/20/2012 - 5-325mg Tablets hours as needed 03/22/2012 for pain Flexeril 1 by mouth three 724.2 Unknown 03/20/2012 - 10mg Tablets times a day as 03/22/2012 needed for back pain Cyclobenzaprine HCL as directed Unknown 03/20/2012 - 10mg 07/05/2012 Tablets Gabapentin 1 pill tonight 90caps 724.2 Anisha, 03/18/2012 - 300mg Capsules then 1 pill Shea He 04/26/2012 twice daily for 1 day then 1 pill 3x/day Sudafed 12 Hour 1 tab po prn for otc Unknown 03/17/2012 - 120mg Tablets allergies 12/04/2012 ER 12HR Levothyroxine Sodium take 1 tablet by 90tabs 244.9 Anisha, 03/07/2012 - 137mcg mouth every Shea He 06/07/2012 Tablets morning on an empty stomach; for thyroid PT For Low Back Pain/DDD please evaluate 724.2 Anisha 12/14/2011 - and treatNeri M.D. 03/17/2012 modalities prn, instruct in hep Levothyroxine Sodium take 1 tablet by 90tabs 244.9 Anisha, 12/10/2011 - 125mcg mouth every Shea He 03/07/2012 Tablets morning on an empty stomach; blood test needed in 2-3 months Septra DS 1 tab po daily 6tabs Shazia Jin 09/11/2011 - 800-160mg Tablets for 3 days 09/14/2011 Tramadol HCL 1 to 2 talets by 200tabs 724.2 Anisha 09/10/2011 - 50mg Tablets mouth every 6 Shea He 03/07/2013 hours as needed for severe pain. 722.52 Physical Therapy for lower back 724.5 Shazia Jin 09/10/2011 - pain. help yvette MALDONADO 11/10/2011 and treat. 2 -3 x week. up to 6 weeks Ibuprofen 2 to 4 tab po 6 724.5 Shazia Jin 09/10/2011 - 200mg to 8 hours. 12/04/2012 Capsules maximum is 2400mg/day. ( 600 q6 or 800mg 8h) tylenol 1gm 6h. Levothyroxine Sodium take 1 tablet 90tabs 244.9 Anisha, 09/03/2011 - every morning on Shea eH 12/10/2011 112mcg Tablets an empty stomach Ibuprofen 1 po q6hrs prn 40tabs Unknown 08/30/2011 - 600mg Tablets 12/04/2012 Flexeril 1 -2 po tid for 20tabs Unknown 08/30/2011 - 10mg Tablets muscle spasm 03/18/2012 Percocet 1-2 q4h prn pain Unknown 08/30/2011 - 5-325mg 11/10/2011 Tablets Levothyroxine Sodium take 1 tablet by 90tabs 244.9 Anisha, 06/15/2011 - mouth once daily Shea He 09/03/2011 100mcg Tablets in the morning on empty stomach Levothyroxine Sodium 1 by mouth every 90tabs 244.9 Silcoff, 03/20/2011 - day in am on an Shea He 06/15/2011 75mcg Tablets empty stomach Levothyroxine Sodium take one tablet 60tabs 244.9 Silcoff, 01/20/2011 - by mouth every Shea He 03/20/2011 50mcg Tablets morning on an empty stomach starting after delivery (to replace the 88mcg strength) Levothyroxine Sodium take 1 tablet 90tabs 244.9 Silcoff, 12/04/2010 - every morning on Shea He 03/19/2011 88mcg Tablets an empty stomach Levothyroxine Sodium 1 po qd in am on 90tabs 244.9 Silcoff, 08/29/2010 - an empty stomach Shea He 12/04/2010 75mcg Tablets Hydrocodone/Acetamino 1 po q4h prn for 346.00 Unknown 08/28/2010 - phen migraine pain 09/10/2011 5-325mg Tablets Levothyroxine Sodium 1 po qd in am on 30tabs 244.9 Silcoff, 08/12/2010 - empty stomach; Shea He 08/29/2010 50mcg Tablets blood test needed 6 weeks after starting this dose Ibuprofen 2 to 4 tab po 6 Silcoff, 06/20/2010 - 200mg to 8 hours. Shea He 08/28/2010 Capsules maximum is 2400mg/day. ( 600 q6 or 800mg 8h) tylenol 1gm 6h. Levothyroxine Sodium 1 po qam on an 90tabs 244.9 Silcoff, 06/20/2010 - empty stomach, 30 Shea He 08/12/2010 25mcg Tablets min before breakfast Ciprofloxacin HCL 1 tab po bid x 5d 10tabs Silcoff, 05/10/2010 - 250mg Shea He 05/30/2010 Tablets Hydrocodone/Acetamino 1-2 po q4h prn 30tabs 724.5 Silcoff, 05/09/2010 - phen for pain Shea He 05/30/2010 5-325mg Tablets Medrol Dosepak use as directed 1Pack 724.3 Heidy Robert MD 10/26/2008 - 4mg 11/02/2008 Tablets Zanaflex 1 po tid prn 50caps 724.3 Anisha, 10/26/2008 - 4mg Capsules Shea He 05/30/2010 Percocet one to 2 tablets 50tabs 724.3 Anisha, 10/26/2008 - 5-325mg po q6h prn for Shea He 05/30/2010 Tablets pain Immunizations CPT Code Status Date Vaccine Lot # 90339 Given 05/29/2013 Flu, Split Virus [id number] Given 04/15/2011 Pneumococcal Immunization [id number] 68521 Given 02/10/2011 Adacel or Boostrix, TDaP 24168 Given 02/18/1998 Td Immunization U-Flu Refused 06/24/2018 Influenza,Unspecified 08632 Refused 06/30/2017 Influenza Virus Vaccine, Quadrivalent, Split, Preservative Free [id number] Refused 07/13/2016 Influenza Virus Vaccine, Quadrivalent, Split, Preservative Free 67587 Refused 08/30/2015 Influenza Virus Vaccine, Quadrivalent, Split, Preservative Free Vital Signs Date Vital Result Comment 03/03/2019 11:01am BP Systolic 102 mmHg BP Diastolic 64 mmHg Height 67 inches 5'7" Weight 197.50 lb BMI (Body Mass Index) 30.9 kg/m2 02/10/2019 9:41am BP Systolic 118 mmHg BP Diastolic 70 mmHg Weight 196.00 lb with shoes 12/09/2018 9:28am BP Systolic 120 mmHg BP Diastolic 72 mmHg Height 66.5 inches 5'6.50" Weight 191.00 lb BMI (Body Mass Index) 30.4 kg/m2 10/14/2018 9:18am BP Systolic 126 mmHg BP Diastolic 70 mmHg 08/19/2018 10:21am BP Systolic 110 mmHg BP Diastolic 72 mmHg Weight 173.50 lb 06/24/2018 10:26am BP Systolic 102 mmHg BP Diastolic 62 mmHg Weight 174.00 lb 04/29/2018 9:32am BP Systolic 106 mmHg BP Diastolic 60 mmHg 03/22/2018 4:42pm BP Systolic 112 mmHg BP Diastolic 60 mmHg Body Temperature 98.4 F Weight 176.00 lb 03/16/2018 4:29pm BP Systolic 104 mmHg BP Diastolic 64 mmHg Body Temperature 98.0 F 03/04/2018 2:36pm BP Systolic 110 mmHg BP Diastolic 68 mmHg Weight 177.00 lb 02/02/2018 11:21am BP Systolic 98 mmHg BP Diastolic 60 mmHg Weight 177.00 lb 01/05/2018 11:52am BP Systolic 100 mmHg BP Diastolic 78 mmHg Weight 178.00 lb 12/01/2017 9:43am BP Systolic 100 mmHg BP Diastolic 60 mmHg Weight 184.00 lb 11/18/2017 10:04am BP Systolic 110 mmHg BP Diastolic 78 mmHg Height 66.5 inches 5'6.50" Weight 182.00 lb BMI (Body Mass Index) 28.9 kg/m2 10/04/2017 10:50am BP Systolic 108 mmHg BP Diastolic 64 mmHg Weight 189.00 lb 08/03/2017 9:47am BP Systolic 102 mmHg BP Diastolic 64 mmHg 06/30/2017 10:58am BP Systolic 120 mmHg BP Diastolic 78 mmHg Weight 193.00 lb 05/28/2017 3:45pm BP Systolic 118 mmHg BP Diastolic 75 mmHg Weight 193.00 lb 04/20/2017 10:38am BP Systolic 98 mmHg BP Diastolic 64 mmHg Weight 187.00 lb 04/06/2017 1:29pm BP Systolic 102 mmHg BP Diastolic 70 mmHg 03/29/2017 4:31pm BP Systolic 110 mmHg BP Diastolic 70 mmHg Weight 172.00 lb 03/03/2017 10:27am BP Systolic 98 mmHg BP Diastolic 64 mmHg 02/06/2017 10:30am BP Systolic 112 mmHg BP Diastolic 70 mmHg Height 66.5 inches 5'6.50" Weight 189.00 lb BMI (Body Mass Index) 30.0 kg/m2 01/01/2017 11:25am BP Systolic 110 mmHg BP Diastolic 70 mmHg Weight 178.00 lb 11/02/2016 9:53am BP Systolic 106 mmHg BP Diastolic 64 mmHg Weight 186.00 lb 09/04/2016 10:59am BP Systolic 118 mmHg BP Diastolic 62 mmHg Height 66 inches 5'6" Weight 178.00 lb BMI (Body Mass Index) 28.7 kg/m2 07/13/2016 9:30am BP Systolic 130 mmHg BP Diastolic 80 mmHg Weight 183.00 lb 05/04/2016 9:59am BP Systolic 98 mmHg BP Diastolic 50 mmHg Weight 186.00 lb 03/31/2016 3:28pm BP Systolic 106 mmHg BP Diastolic 70 mmHg 03/25/2016 10:07am BP Systolic 98 mmHg BP Diastolic 70 mmHg 02/21/2016 10:28am BP Systolic 102 mmHg BP Diastolic 70 mmHg Weight 185.00 lb per pt 11/20/2015 9:33am BP Systolic 98 mmHg BP Diastolic 60 mmHg Height 67 inches 5'7" Weight 192.00 lb BMI (Body Mass Index) 30.1 kg/m2 10/22/2015 9:48am BP Systolic 120 mmHg BP Diastolic 78 mmHg Weight 196.00 lb with shoes 10/01/2015 10:02am BP Systolic 118 mmHg BP Diastolic 70 mmHg Weight 191.00 lb 08/30/2015 10:58am BP Systolic 118 mmHg BP Diastolic 60 mmHg 07/17/2015 9:42am BP Systolic 150 mmHg BP Diastolic 94 mmHg BP Systolic Recheck 108 mmHg R arm sitting BP Diastolic Recheck 70 mmHg R arm sitting Weight 194.00 lb 06/17/2015 10:03am BP Systolic 118 mmHg BP Diastolic 78 mmHg Weight 197.00 lb 05/20/2015 1:47pm BP Systolic 106 mmHg BP Diastolic 70 mmHg Weight 192.50 lb 04/22/2015 1:29pm BP Systolic 120 mmHg BP Diastolic 70 mmHg Weight 185.00 lb with shoes 03/20/2015 1:31pm BP Systolic 110 mmHg BP Diastolic 65 mmHg Heart Rate 84 /min reg 03/04/2015 10:22am BP Systolic 116 mmHg BP Diastolic 68 mmHg Height 66.75 inches 5'6.75" Weight 189.00 lb BMI (Body Mass Index) 29.8 kg/m2 11/30/2014 1:15pm BP Systolic 100 mmHg BP Diastolic 60 mmHg Weight 203.00 lb per pt 09/18/2014 10:18am BP Systolic 120 mmHg BP Diastolic 72 mmHg 09/04/2014 10:17am BP Systolic 112 mmHg BP Diastolic 68 mmHg Height 66.75 inches 5'6.75" Weight 192.00 lb BMI (Body Mass Index) 30.3 kg/m2 06/05/2014 8:45am BP Systolic 110 mmHg BP Diastolic 64 mmHg Weight 187.00 lb 03/06/2014 9:57am BP Systolic 100 mmHg BP Diastolic 70 mmHg Weight 188.00 lb 12/05/2013 9:59am BP Systolic 106 mmHg BP Diastolic 68 mmHg Height 67 inches 5'7" Weight 191.00 lb BMI (Body Mass Index) 29.9 kg/m2 09/05/2013 9:28am BP Systolic 104 mmHg BP Diastolic 76 mmHg Weight 190.00 lb 06/06/2013 10:21am BP Systolic 112 mmHg BP Diastolic 78 mmHg Height 67 inches 5'7" Weight 195.00 lb BMI (Body Mass Index) 30.5 kg/m2 03/07/2013 10:18am BP Systolic 98 mmHg BP Diastolic 74 mmHg Weight 204.00 lb 12/05/2012 10:24am BP Systolic 110 mmHg BP Diastolic 66 mmHg Height 67 inches 5'7" Weight 203.00 lb BMI (Body Mass Index) 31.8 kg/m2 09/05/2012 9:44am BP Systolic 110 mmHg BP Diastolic 72 mmHg Weight 201.00 lb Last Menstrual Period 0 07/05/2012 10:29am BP Systolic 110 mmHg BP Diastolic 62 mmHg Weight 204.00 lb Last Menstrual Period 0 04/26/2012 11:14am BP Systolic 98 mmHg BP Diastolic 60 mmHg Height 66.75 inches 5'6.75" Weight 209.00 lb BMI (Body Mass Index) 33.0 kg/m2 04/06/2012 11:03am BP Systolic 126 mmHg BP Diastolic 88 mmHg 03/18/2012 10:39am BP Systolic 124 mmHg BP Diastolic 78 mmHg Weight 207.00 lb 12/14/2011 3:52pm BP Systolic 110 mmHg BP Diastolic 60 mmHg 11/11/2011 4:11pm BP Systolic 130 mmHg BP Diastolic 72 mmHg Height 66.75 inches 5'6.75" Weight 208.00 lb BMI (Body Mass Index) 32.8 kg/m2 09/10/2011 11:23am BP Systolic 138 mmHg BP Diastolic 84 mmHg Weight 204.00 lb 04/15/2011 10:34am BP Systolic 118 mmHg BP Diastolic 72 mmHg Height 66.75 inches 5'6.75" Weight 203.00 lb BMI (Body Mass Index) 32.0 kg/m2 01/20/2011 11:12am BP Systolic 116 mmHg BP Diastolic 70 mmHg Weight 217.00 lb 08/29/2010 1:09pm BP Systolic 118 mmHg BP Diastolic 58 mmHg Height 64 inches 5'4" Weight 207.00 lb BMI (Body Mass Index) 35.5 kg/m2 06/20/2010 4:37pm BP Systolic 102 mmHg BP Diastolic 64 mmHg Heart Rate 84 /min reg Weight 201.00 lb 05/09/2010 2:32pm BP Systolic 120 mmHg BP Diastolic 86 mmHg Heart Rate 82 /min reg Body Temperature 98.8 F Weight 199.00 lb Last Menstrual Period 0 11/09/2008 10:06am BP Systolic 100 mmHg BP Diastolic 60 mmHg Height 67 inches 5'7" Weight 219.00 lb BMI (Body Mass Index) 34.3 kg/m2 10/26/2008 10:02am BP Systolic 120 mmHg BP Diastolic 76 mmHg Weight 212.00 lb per pt 08/02/2007 2:07pm BP Systolic 120 mmHg BP Diastolic 64 mmHg Height 66.50 inches 5'6.50" Weight 202.00 lb BMI (Body Mass Index) 32.1 kg/m2 Results Test Date Facility Test Result H/L Range Note Laboratory test 03/03/2019 In House Culture Throat negative finding Rapid Screen Culture Throat <pending> Laboratory test finding 03/03/2019 In House Rapid Strep A negative Culture Strep Group A Throat negative Ua Inhouse 03/03/2019 In House Ua Glucose - 1 Ua Bilirubin - Ua Ketones - Ua Specific [place] 1.005 Ua Blood - Ua PH 6.0 Ua Protein - Ua Urobilinogen - Ua Nitrite - Ua Leukocytes - Laboratory test 06/24/2018 [facility] TSH (Thyroid 2.19 mcIU/mL N 0.34-5.60 finding [phone] Stim Horm) Basic Metabolic 06/24/2018 [facility] Sodium 140 mmol/L N 135-145 Panel [phone] Potassium 4.1 mmol/L N 3.5-5.0 Chloride 110 mmol/L N 101-111 Co2 Carbon Dioxide 25 mmol/L N 22-32 Anion Gap 5 mmol/L N 2-11 Glucose 98 mg/dL N 70-100 Blood Urea Nitrogen 9 mg/dL N 6-24 Creatinine 0.68 mg/dL N 0.51-0.95 BUN/Creatinine Ratio 13.2 N 8-20 Calcium 8.9 mg/dL N 8.6-10.3 Egfr Non- 95.4 >60 Egfr 115.4 >60 2 Urinalysis Profile 03/22/2018 [facility] Urine Color Jennifer [phone] Urine Appearance Cloudy Urine Specific [place] 1.015 N 1.010-1.030 Urine pH 6.0 N 5-9 Urine Urobilinogen Positive Abnormal Negative Urine Ketones Negative Negative Urine Protein Negative Negative Urine Leukocytes Negative Negative Urine Blood Negative Negative Urine Nitrite Negative Negative Urine Bilirubin Negative Negative Urine Glucose Negative Negative Laboratory test finding 03/22/2018 [facility] Lactic Acid 0.5 mmol/L N 0.5-2.0 3 [phone] Comp Metabolic Panel 03/22/2018 [facility] Sodium 138 mmol/L N 135- 145 [phone] Potassium 3.5 mmol/L N 3.5-5.0 Chloride 107 mmol/L N 101-111 Co2 Carbon Dioxide 22 mmol/L N 22-32 Anion Gap 9 mmol/L N 2-11 Glucose 93 mg/dL N 70-100 Blood Urea Nitrogen 8 mg/dL N 6-24 Creatinine 0.87 mg/dL N 0.51-0.95 BUN/Creatinine Ratio 9.2 N 8-20 Calcium 9.4 mg/dL N 8.6-10.3 Total Protein 7.2 g/dL N 6.4-8.9 Albumin 4.1 g/dL N 3.2-5.2 Globulin 3.1 g/dL N 2-4 Albumin/Globulin Ratio 1.3 N 1-3 Total Bilirubin 0.30 mg/dL N 0.2-1.0 Alkaline Phosphatase 104 U/L N 34-104 Alt 43 U/L N 7-52 Ast 37 U/L N 13-39 Egfr Non- 71.8 >60 Egfr 86.8 >60 4 Laboratory test 03/22/2018 [facility] C Reactive 10.76 mg/L High < 8.01 finding [phone] Protein HCG < 0.60 mIU/mL 5 CBC Auto Diff 03/22/2018 [facility] White Blood Count 9.2 10^3/uL N 3.5-10.8 [phone] Red Blood Count 4.04 10^6/uL N 4.00-5.40 Hemoglobin 11.8 g/dL Low 12.0-16.0 Hematocrit 35 % N 35-47 Mean Corpuscular Volume 87 fL N 80-97 Mean Corpuscular Hemoglobin 29 pg N 27-31 Mean Corpuscular HGB Conc 34 g/dL N 31-36 Red Cell Distribution Width 14 % N 10.5-15 Platelet Count 315 10^3/uL N 150-450 Mean Platelet Volume 8.3 um3 N 7.4-10.4 Abs Neutrophils 6.7 10^3/uL N 1.5-7.7 Abs Lymphocytes 1.5 10^3/uL N 1.0-4.8 Abs Monocytes 0.6 10^3/uL N 0-0.8 Abs Eosinophils 0.3 10^3/uL N 0-0.6 Abs Basophils 0.1 10^3/uL N 0-0.2 Abs Nucleated RBC 0 10^3/uL Granulocyte % 72.7 % N 38-83 Lymphocyte % 16.7 % Low 25-47 Monocyte % 7.0 % N 0-7 Eosinophil % 2.7 % N 0-6 Basophil % 0.9 % N 0-2 Nucleated Red Blood Cells % 0 Laboratory test 03/22/2018 [facility] Erythrocyte Sed 35 mm/Hr High 0 -14 finding [phone] Rate Blood Culture SEE RESULT BELOW 6 Ua Inhouse 03/16/2018 In House Ua Glucose - 7 Ua Bilirubin 1+ Ua Ketones - Ua Specific [place] 1.015 Ua Blood 2+ Ua PH 6.5 Ua Protein tr Ua Urobilinogen 1+ Ua Nitrite - Ua Leukocytes tr Culture Urine Inhouse 03/16/2018 In House Colonies negative Ua Inhouse 11/18/2017 In House Ua Specific [place] 1.010 Ua PH 6.0 CBC Auto Diff 11/18/2017 [facility] White Blood 12.8 10^3/uL High 3.5 -10.8 [phone] Count Red Blood Count 4.73 10^6/uL N 4.0-5.4 Hemoglobin 13.7 g/dL N 12.0-16.0 Hematocrit 42 % N 35-47 Mean Corpuscular Volume 88 fL N 80-97 Mean Corpuscular Hemoglobin 29 pg N 27-31 Mean Corpuscular HGB Conc 33 g/dL N 31-36 Red Cell Distribution Width 14 % N 10.5-15 Platelet Count 280 10^3/uL N 150-450 Mean Platelet Volume 9 um3 N 7.4-10.4 Abs Neutrophils 10.0 10^3/uL High 1.5-7.7 Abs Lymphocytes 1.8 10^3/uL N 1.0-4.8 Abs Monocytes 0.8 10^3/uL N 0-0.8 Abs Eosinophils 0.2 10^3/uL N 0-0.6 Abs Basophils 0.1 10^3/uL N 0-0.2 Abs Nucleated RBC 0 10^3/uL Granulocyte % 77.7 % N 38-83 Lymphocyte % 14.2 % Low 25-47 Monocyte % 6.1 % N 0-7 Eosinophil % 1.4 % N 0-6 Basophil % 0.6 % N 0-2 Nucleated Red Blood Cells % 0 Comp Metabolic Panel 11/18/2017 [facility] Sodium 141 mmol/L N 133- 145 [phone] Potassium 3.8 mmol/L N 3.5-5.0 Chloride 108 mmol/L N 101-111 Co2 Carbon Dioxide 25 mmol/L N 22-32 Anion Gap 8 mmol/L N 2-11 Glucose 90 mg/dL N 70-100 Blood Urea Nitrogen 11 mg/dL N 6-24 Creatinine 0.71 mg/dL N 0.51-0.95 BUN/Creatinine Ratio 15.5 N 8-20 Calcium 9.6 mg/dL N 8.6-10.3 Total Protein 7.1 g/dL N 6.4-8.9 Albumin 4.3 g/dL N 3.2-5.2 Globulin 2.8 g/dL N 2-4 Albumin/Globulin Ratio 1.5 N 1-3 Total Bilirubin 0.30 mg/dL N 0.2-1.0 Alkaline Phosphatase 57 U/L N 34-104 Alt 15 U/L N 7-52 Ast 22 U/L N 13-39 Egfr Non- 90.7 >60 Egfr 116.7 >60 8 Lipid Profile (Trig/Chol/HDL) 11/18/2017 [facility] Triglycerides 101 mg/dL 9 [phone] Cholesterol 152 mg/dL 10 HDL Cholesterol 34.8 mg/dL 11 LDL Cholesterol 97 mg/dL 12 Laboratory test 10/04/2017 [facility] TSH (Thyroid 2.66 mcIU/mL N 0.34-5.60 finding [phone] Stim Horm) Urine Drug Screen 05/28/2017 In House Ua Cocaine - Inhouse Ua Opiates + Ua Amphetamines - Urine Methanphetamines - Urine Benzodiazepines QN [place] - Urine Oxycodone QL - Basic Metabolic Panel 03/26/2017 [facility] Sodium 138 mmol/L N 133- 145 [phone] Potassium 4.0 mmol/L N 3.5-5.0 Chloride 103 mmol/L N 101-111 Co2 Carbon Dioxide 30 mmol/L N 22-32 Anion Gap 5 mmol/L N 2-11 Glucose 111 mg/dL High 70-100 Blood Urea Nitrogen 11 mg/dL N 6-24 Creatinine 0.72 mg/dL N 0.51-0.95 BUN/Creatinine Ratio 15.3 N 8-20 Calcium 9.2 mg/dL N 8.6-10.3 Egfr Non- 89.7 N >60 Egfr 115.4 N >60 13 Urine Drug Screen Inhouse 03/03/2017 In House Ua Cocaine - Ua Opiates - Ua Amphetamines - Urine Methanphetamines - Urine Benzodiazepines QN [place] - Urine Oxycodone QL - Laboratory test 01/01/2017 [facility] TSH (Thyroid 0.47 mcIU/mL N 0.34-5.60 finding [phone] Stim Horm) Laboratory test 11/02/2016 [facility] TSH (Thyroid 0.33 mcIU/mL Low 0.34-5.60 finding [phone] Stim Horm) Laboratory test 02/21/2016 [facility] TSH (Thyroid 0.64 ?IU/mL N 0.34 -5.60 finding [phone] Stim Horm) Laboratory test 06/17/2015 [facility] TSH (Thyroid 1.51 ?IU/mL N 0.34 -5.60 finding [phone] Stim Horm) Laboratory test 03/04/2015 [facility] TSH (Thyroid 0.17 ?IU/mL Low 0.34-5.60 finding [phone] Stim Horm) Basic Metabolic 03/04/2015 [facility] Sodium 135 mmol/L N 133-145 Panel [phone] Potassium 4.4 mmol/L N 3.5-5.0 Chloride 105 mmol/L N 101-111 Co2 Carbon Dioxide 25 mmol/L N 22-32 Anion Gap 5 mmol/L N 2-11 Glucose 92 mg/dL N 70-100 Blood Urea Nitrogen 8 mg/dL N 6-24 Creatinine 0.63 mg/dL N 0.51-0.95 BUN/Creatinine Ratio 12.7 N 8-20 Calcium 9.2 mg/dL N 8.6-10.3 Egfr Non- 105.8 N >60 Egfr 136.0 N >60 14 Laboratory test 03/04/2015 [facility] Total Protein 6.9 g/dL N 6.4- 8.9 finding [phone] CBC Auto Diff 03/04/2015 [facility] White Blood 10.1 10^3/uL N 4.8- 10.8 [phone] Count Red Blood Count 5.06 10^6/uL N 4.0-5.4 Hemoglobin 13.8 g/dL N 12.0-16.0 Hematocrit 43 % N 35-47 Mean Corpuscular Volume 85 fL N 80-97 Mean Corpuscular Hemoglobin 27 pg N 27-31 Mean Corpuscular HGB Conc 32 g/dL N 31-36 Red Cell Distribution Width 15 % N 10.5-15 Platelet Count 284 10^3/uL N 150-450 Mean Platelet Volume 9 um3 N 7.4-10.4 Abs Neutrophils 7.0 10^3/uL N 1.5-7.7 Abs Lymphocytes 2.0 10^3/uL N 1.0-4.8 Abs Monocytes 0.7 10^3/uL N 0-0.8 Abs Eosinophils 0.4 10^3/uL N 0-0.6 Abs Basophils 0.1 10^3/uL N 0-0.2 Abs Nucleated RBC 0 10^3/uL N Granulocyte % 69.7 % N 38-83 Lymphocyte % 19.4 % Low 25-47 Monocyte % 6.9 % N 1-9 Eosinophil % 3.5 % N 0-6 Basophil % 0.5 % N 0-2 Nucleated Red Blood Cells % 0 N Laboratory 06/05/2014 [facility] TSH (Thyroid 0.59 IU/mL N 0.34-5.60 test finding [phone] Stimulating Horm) Laboratory 04/13/2014 [facility] Urine Negative N Negative 15 test finding [phone] CBC Auto Diff 01/09/2014 [facility] White Blood 12.6 10^3/uL High 4.8 -10.8 [phone] Count Red Blood Count 4.51 10^6/uL 4.0-5.4 Hemoglobin 13.2 g/dL 12.0-16.0 Hematocrit 39 % 35-47 Mean Corpuscular Volume 86 fL 80-97 Mean Corpuscular Hemoglobin 29 pg 27-31 Mean Corpuscular HGB Conc 34 g/dL 31-36 Red Cell Distribution Width 14 % 10.5-15 Platelet Count 261 10^3/uL 150-450 Mean Platelet Volume 9 um3 7.4-10.4 Abs Neutrophils 9.4 10^3/uL High 1.5-7.7 Abs Lymphocytes 2.2 10^3/uL 1.0-4.8 Abs Monocytes 0.7 10^3/uL 0-0.8 Abs Eosinophils 0.3 10^3/uL 0-0.6 Abs Basophils 0 10^3/uL 0-0.2 Abs Nucleated RBC 0 10^3/uL Granulocyte % 74.5 % 38-83 Lymphocyte % 17.7 % Low 25-47 Monocyte % 5.5 % 1-9 Eosinophil % 2.1 % 0-6 Basophil % 0.2 % 0-2 Nucleated Red Blood Cells % 0 Laboratory test 01/09/2014 [facility] Serum Negative Negative 16 finding [phone] Comp Metabolic 01/09/2014 [facility] Sodium 134 mmol/L 133-145 Panel [phone] Potassium 4.1 mmol/L 3.7-5.6 Chloride 105 mmol/L 101-111 Co2 Carbon Dioxide 26 mmol/L 22-32 Anion Gap 3 mmol/L 2-11 Glucose 90 mg/dL 70-100 Blood Urea Nitrogen 11 mg/dL 6-24 Creatinine 0.74 mg/dL 0.51-0.95 BUN/Creatinine Ratio 14.9 8-20 Calcium 9.3 mg/dL 8.6-10.3 Total Protein 6.6 g/dL 6.4-8.9 Albumin 4.4 g/dL 3.2-5.2 Globulin 2.2 g/dL 2-4 Albumin/Globulin Ratio 2.0 1-3 Total Bilirubin 0.30 mg/dL 0.2-1.0 Alkaline Phosphatase 45 U/L 34-104 Alt 15 U/L 7-52 Ast 14 U/L 13-39 Egfr Non- 88.3 >60 Egfr 113.6 >60 17 Laboratory test 01/09/2014 [facility] C Reactive 3.67 mg/L < 5.00 18 finding [phone] Protein Laboratory test 01/05/2014 [facility] Potassium 4.2 mmol/L 3.7-5.6 finding [phone] Ast 13 U/L 13-39 CBC Auto Diff 01/05/2014 [facility] White Blood 16.0 10^3/uL High 4.8 -10.8 [phone] Count Red Blood Count 4.99 10^6/uL 4.0-5.4 Hemoglobin 14.4 g/dL 12.0-16.0 Hematocrit 43 % 35-47 Mean Corpuscular Volume 87 fL 80-97 Mean Corpuscular Hemoglobin 29 pg 27-31 Mean Corpuscular HGB Conc 33 g/dL 31-36 Red Cell Distribution Width 14 % 10.5-15 Platelet Count 308 10^3/uL 150-450 Mean Platelet Volume 9 um3 7.4-10.4 Abs Neutrophils 12.0 10^3/uL High 1.5-7.7 Abs Lymphocytes 2.7 10^3/uL 1.0-4.8 Abs Monocytes 0.9 10^3/uL High 0-0.8 Abs Eosinophils 0.3 10^3/uL 0-0.6 Abs Basophils 0.2 10^3/uL 0-0.2 Abs Nucleated RBC 0 10^3/uL Granulocyte % 74.8 % 38-83 Lymphocyte % 16.5 % Low 25-47 Monocyte % 5.6 % 1-9 Eosinophil % 2.1 % 0-6 Basophil % 1.0 % 0-2 Nucleated Red Blood Cells % 0 Comp Metabolic Panel 01/05/2014 [facility] Sodium 136 mmol/L 133- 145 [phone] Potassium TNP mmol/L 3.7-5.6 19 Chloride 105 mmol/L 101-111 Co2 Carbon Dioxide 26 mmol/L 22-32 Glucose 105 mg/dL High 70-100 Blood Urea Nitrogen 10 mg/dL 6-24 Creatinine 0.72 mg/dL 0.51-0.95 BUN/Creatinine Ratio 13.9 8-20 Calcium 9.3 mg/dL 8.6-10.3 Total Protein 7.1 g/dL 6.4-8.9 Albumin 4.7 g/dL 3.2-5.2 Globulin 2.4 g/dL 2-4 Albumin/Globulin Ratio 2.0 1-3 Total Bilirubin 0.30 mg/dL 0.2-1.0 Alkaline Phosphatase 56 U/L 34-104 Alt 13 U/L 7-52 Ast TNP U/L 13-39 20 Egfr Non- 91.1 >60 Egfr 117.2 >60 21 Laboratory test 01/05/2014 [facility] Serum Negative Negative 22 finding [phone] Laboratory test 10/04/2013 [facility] TSH (Thyroid 0.64 miu/mL 0.34- 5.60 finding [phone] Stimulating Horm) Laboratory test 07/29/2013 [facility] TSH (Thyroid 0.16 miu/mL Low 0.34-5.60 finding [phone] Stimulating Horm) Urine Micro 06/06/2013 In House Ua WBC 8-15 w Inhouse clumps Ua RBC - Ua Casts - Ua Epi occ Ua Other bacteria Ua Glucose - Ua Bilirubin sm Ua Ketones tr Ua Specific [place] 1.010 Ua Blood - Ua PH 7.5 Ua Protein tr Ua Urobilinogen - Ua Nitrite + Ua Leukocytes tr Culture Urine 06/06/2013 In House Colonies confluent grwth Inhouse Laboratory test 01/30/2013 [facility] TSH (Thyroid 0.65 miu/mL 0.34- 5 finding [phone] Stimulating Horm) .60 Laboratory test 11/03/2012 [facility] TSH (Thyroid 4.71 miu/mL 0.34- 5 finding [phone] Stimulating Horm) .60 CBC Auto Diff 10/10/2012 [facility] White Blood Count 8.2 10^3/uL 4.8-10 [phone] .[phone] Red Blood Count 4.55 10^6/uL 4.0-5.4 Hemoglobin 13.1 g/dL 12.0-16.0 Hematocrit 39 % 35-47 Mean Corpuscular Volume 85 fL 80-97 Mean Corpuscular Hemoglobin 29 pg 27-31 Mean Corpuscular HGB Conc 34 g/dL 31-36 Red Cell Distribution Width 14 % 10.5-15 Platelet Count 259 10^3/uL 150-450 Mean Platelet Volume 9 um3 7.4-10.4 Abs Neutrophils 6.2 10^3/uL 1.5-7.7 Abs Lymphocytes 1.0 10^3/uL 1.0-4.8 Abs Monocytes 1.0 10^3/uL High 0-0.8 Abs Eosinophils 0 10^3/uL 0-0.6 Abs Basophils 0 10^3/uL 0-0.2 Abs Nucleated RBC 0 10^3/uL Granulocyte % 75.5 % 38-83 Lymphocyte % 11.7 % Low 25-47 Monocyte % 12.0 % High 1-9 Eosinophil % 0.6 % 0-6 Basophil % 0.2 % 0-2 Nucleated Red Blood Cells % 0 Comp Metabolic Panel 10/10/2012 [facility] Sodium 137 mmol/L 133- 145 [phone] Potassium 3.9 mmol/L 3.5-5.0 Chloride 103 mmol/L 101-111 Co2 Carbon Dioxide 24.0 mmol/L 22-32 Anion Gap 10.0 mmol/L 2-11 Glucose 103 mg/dL High 70-100 Blood Urea Nitrogen 10 mg/dL 6-24 Creatinine 0.70 mg/dL 0.50-1.40 BUN/Creatinine Ratio 14.3 8-20 Calcium 9.1 mg/dL 8.1-9.9 Total Protein 6.8 g/dL 6.2-8.1 Albumin 4.2 g/dL 3.6-5.4 Globulin 2.6 g/dL 2-4 Albumin/Globulin Ratio 1.6 1-3 Total Bilirubin 0.4 mg/dL 0.4-1.5 Alkaline Phosphatase 59 U/L 30-110 Alt 20 U/L 14-54 Ast 20 U/L 12-42 Egfr Non- 94.7 >60 Egfr 121.8 >60 23 Laboratory 10/10/2012 [facility] C Reactive 1.8 mg/dL High Less than test finding [phone] Protein 0.5 Laboratory 10/10/2012 [facility] Serum Negative Negative 24 test finding [phone] Laboratory 06/05/2012 [facility] TSH 5.36 MIU/ML 0.34-5.60 test finding [phone] CBC Auto Diff 03/01/2012 [facility] White Blood 10.8 CUMM 4.8-10.8 [phone] Count Red Cell Count 4.16 CUMM Low 4.2-5.4 Hemoglobin 12.2 g/dL 12.0-16.0 Hematocrit 36 % 35-47 Mean Corpuscular Volume 87 um3 79-97 Mean Corpuscular Hemoglob 29 pg 27-31 Mean Corpuscular HGB Cone 34 g/dL 32-36 Redcell Distribution WDTH 14 % 10.5-15 Platelet Count 263 CUMM 150-450 Mean Platelet Volume 9.3 um3 7.4-10.4 Gran % 68.0 % 38-83 Lymph % 23.3 % Low 25-47 Mononuclear % 6.5 % 1-9 Eosinophil % 1.8 % 0-6 Basophil % 0.4 % 0-2 Abs Lymphs 2.5 1.0-4.8 Abs Mononuclear 0.7 0-0.8 Absolute Neutrophil Count 7.4 1.5-7.7 Abs Eosinophils 0.2 0-0.6 Abs Basophils 0 0-0.2 Laboratory test 03/01/2012 [facility] TSH 4.91 MIU/ML 0.34-5.60 finding [phone] Rapid Strep A 12/20/2011 [facility] 25 [phone] ---- <SEE NOTE> Laboratory test 12/09/2011 [facility] TSH 7.03 MIU/ML High 0.34-5.60 finding [phone] CBC With Manual 09/11/2011 [facility] White Blood 10.5 CUMM 4.8- 10.8 Diff [phone] Count Red Cell Count 4.41 CUMM 4.2-5.4 Hemoglobin 12.7 g/dL 12.0-16.0 Hematocrit 37 % 35-47 Mean Corpuscular Volume 84 um3 79-97 Mean Corpuscular Hemoglob 29 pg 27-31 Mean Corpuscular HGB Cone 34 g/dL 32-36 Redcell Distribution WDTH 15 % 10.5-15 Platelet Count 289 CUMM 150-450 Mean Platelet Volume 9.1 um3 7.4-10.4 Polysegmented Neutrophil 74 % 38-83 Band Neutrophil 1 % 0-8 Lymphocyte 22 % Low 25-47 Monocyte 2 % 0-13 Eosinophil 1 % 0-6 Absolute Neutrophil Count 7.8 RBC Morphology NORMAL Laboratory test 09/11/2011 [facility] Erythrocyte Sed Rate 12 MM/HR 0-15 finding [phone] Rheumatoid Factor < 15 IU/mL <15 26 Li (Antinuclear 09/11/2011 [facility] Antinuclear AB NEGATIVE (NEG) Antibodies) [phone] Li Rev By MD RONEN HICKMAN <SEE NOTE> 27 Urine Micro Inhouse 09/10/2011 In House Ua WBC 6-8 Ua RBC - Ua Casts - Ua Epi 0-2 Ua Other bacteria Ua Glucose - Ua Bilirubin - Ua Ketones - Ua Specific [place] 1.005 Ua Blood - Ua PH 5.0 Ua Protein - Ua Urobilinogen - Ua Nitrite + Ua Leukocytes 2+ Culture Urine 09/10/2011 In House Colonies 06/25 Inhouse Laboratory test 09/03/2011 [facility] TSH 3.49 MIU/ML 0.34-5.60 finding [phone] Laboratory test 06/09/2011 [facility] TSH 4.46 MIU/ML 0.34-5.60 finding [phone] Laboratory test 03/18/2011 [facility] Thyroxine Free 0.89 ng/dL 0.61 -1.24 finding [phone] TSH 5.15 MIU/ML 0.34-5.60 Laboratory test finding 01/12/2011 [facility] TSH 2.94 MIU/ML 0.34- 5.60 [phone] Laboratory test finding 12/01/2010 [facility] TSH 5.20 MIU/ML 0.34- 5.60 [phone] Urinalysis 11/08/2010 [facility] Ua Color YELLOW Yellow [phone] Appearance-Urine CLEAR Clear Specific [place]-Ur 1.006 Low 1.010-1.030 Esterase-Urine NEGATIVE Negative Nitrite NEGATIVE Negative Afallidaplex-Ve-JRU NEGATIVE Negative Protein-Urine TRACE Abnormal Negative PH-Urine 7.5 5-9 Blood-Urine NEGATIVE Negative Ketones-Urine NEGATIVE Negative Bilirubin-Ur NEGATIVE Negative Glucose-Urine NEGATIVE Negative Hemogram 11/08/2010 [facility] White Blood Count 18.4 CUMM High 4.8- 10.8 [phone] Red Cell Count 3.87 CUMM Low 4.2-5.4 Hemoglobin 11.7 g/dL Low 12.0-16.0 Hematocrit 34 % Low 35-47 Mean Corpuscular Volume 87 um3 79-97 Mean Corpuscular Hemoglob 30 pg 27-31 Mean Corpuscular HGB Cone 35 g/dL 32-36 Redcell Distribution WDTH 13 % 10.5-15 Platelet Count 296 CUMM 150-450 Mean Platelet Volume 8.6 um3 7.4-10.4 Comp Metabolic Panel 11/08/2010 [facility] Sodium 133 mmol/L Low 135- 145 [phone] Potassium 4.1 mmol/L 3.5-5.0 Chloride 106 mmol/L 101-111 Co2 (Carbon Dioxide) 20.0 mmol/L Low 22-32 Anion Gap 7.0 mmol/L 2-11 28 Glucose 89 mg/dL 70-100 BUN 4 mg/dL Low 6-24 Creatinine 0.60 mg/dL 0.50-1.40 One Over Creatinine 1.60 BUN/Creatinine Ratio 6.7 Low 8-20 Calcium 8.6 mg/dL 8.1-9.9 Total Protein 6.5 GM/DL 6.2-8.1 Albumin 3.2 GM/DL Low 3.6-5.4 Globulin 3.3 GM/DL 2-4 Albumin/Globulin Ratio 1.0 1-3 Bilirubin Total 0.3 mg/dL Low 0.4-1.5 29 Alkaline Phosphatase 58 U/L 30-110 Alt (SGPT) 10 U/L Low 14-54 Ast (Sgot) 10 U/L Low 12-42 eGFR Non- 114.4 > 60 eGFR 147.2 > 60 30 Type & Screen 11/08/2010 [facility] Patient Blood Type A POSITIVE [phone] Antibody Screen NEGATIVE CBC With Manual 11/08/2010 [facility] White Blood 18.4 CUMM High 4.8- 10.8 Diff [phone] Count Red Cell Count 3.87 CUMM Low 4.2-5.4 Hemoglobin 11.7 g/dL Low 12.0-16.0 Hematocrit 34 % Low 35-47 Mean Corpuscular Volume 87 um3 79-97 Mean Corpuscular Hemoglob 30 pg 27-31 Mean Corpuscular HGB Cone 35 g/dL 32-36 Redcell Distribution WDTH 13 % 10.5-15 Platelet Count 296 CUMM 150-450 Mean Platelet Volume 8.6 um3 7.4-10.4 Polysegmented Neutrophil 91 % High 38-83 Lymphocyte 8 % Low 25-47 Monocyte 1 % 0-13 Absolute Neutrophil Count 16.7 Anisocytosis SLIGHT Laboratory test finding 10/16/2010 [facility] TSH 3.10 MIU/ML 0.34- 5.60 [phone] Laboratory test finding 08/12/2010 [facility] TSH 6.99 MIU/ML High 0.34-5.60 [phone] Laboratory test finding 06/11/2010 [facility] TSH 7.77 MIU/ML High 0.34-5.60 [phone] T3 Total 1.35 NG/ML 0.5-1.7 Thyroxine Free 0.76 NG/ML 0.61-1.24 Ua Inhouse 05/16/2010 In House Ua Glucose - Ua Bilirubin - Ua Ketones - Ua Specific [place] 1.010 Ua Blood - Ua PH 6.0 Ua Protein - Ua Urobilinogen - Ua Nitrite - Ua Leukocytes - Culture Urine Inhouse 05/16/2010 In House Colonies neg Urine Micro Inhouse 05/09/2010 In House Ua WBC 3-5 Ua RBC - Ua Casts - Ua Epi tntc Ua Other - Ua Glucose - Ua Bilirubin - Ua Ketones - Ua Specific [place] 1.020 Ua Blood - Ua PH 6.0 Ua Protein tr Ua Urobilinogen - Ua Nitrite - Ua Leukocytes 1+ Culture Urine 05/09/2010 In House Colonies positive Inhouse CBC With 05/06/2010 [facility] White Blood 12.5 CUMM High 4.8-10.8 Electronic Diff [phone] Count Red Cell Count 4.81 CUMM 4.2-5.4 Hemoglobin 14.0 g/dL 12.0-16.0 Hematocrit 41 % 35-47 Mean Corpuscular Volume 86 um3 79-97 Mean Corpuscular Hemoglob 29 pg 27-31 Mean Corpuscular HGB Cone 34 g/dL 32-36 Redcell Distribution WDTH 13 % 10.5-15 Platelet Count 316 CUMM 150-450 Mean Platelet Volume 7.5 um3 7.4-10.4 Gran % 73.9 % 38-83 Lymph % 18.7 % Low 25-47 Mononuclear % 5.3 % 1-9 Eosinophil % 1.4 % 0-6 Basophil % 0.7 % 0-2 Abs Lymphs 2.3 1.0-4.8 Abs Mononuclear 0.7 0-0.8 Absolute Neutrophil Count 9.2 High 1.5-7.7 Abs Eosinophils 0.2 0-0.6 Abs Basophils 0.1 0-0.2 31 Comp Metabolic Panel 05/06/2010 [facility] Sodium 137 mmol/L 135- 145 [phone] Potassium 4.2 mmol/L 3.5-5.0 Chloride 107 mmol/L 101-111 Co2 (Carbon Dioxide) 23.0 mmol/L 22-32 Anion Gap 7.0 mmol/L 2-11 32 Glucose 93 mg/dL 70-100 33 BUN 6 mg/dL 6-24 Creatinine 0.70 mg/dL 0.50-1.40 One Over Creatinine 1.40 BUN/Creatinine Ratio 8.6 8-20 Calcium 9.9 mg/dL 8.1-9.9 34 Total Protein 7.2 GM/DL 6.2-8.1 Albumin 4.6 GM/DL 3.6-5.4 Globulin 2.6 GM/DL 2-4 Albumin/Globulin Ratio 1.8 1-3 Bilirubin Total 0.7 mg/dL 0.4-1.5 35 Alkaline Phosphatase 55 U/L 30-110 Alt (SGPT) 20 U/L 14-54 Ast (Sgot) 20 U/L 12-42 eGFR Non- 102.4 > 60 eGFR 123.9 > 60 36 Laboratory test finding 05/06/2010 [facility] Troponin-I (TnI) 0.01 NG/ ML [phone] D Dimer Quantitative < 200 Less Than 230 TSH 9.10 MIU/ML High 0.34-5.60 (HCG) Serum NEGATIVE Negative 38 Urinalysis W/Microscopic 04/10/2010 [facility] Ua Color YELLOW Yellow [phone] Appearance-Urine CLEAR Clear Specific [place]-Ur 1.018 1.010-1.030 Esterase-Urine 3+ Abnormal Negative Nitrite POSITIVE Abnormal Negative [id number] NEGATIVE Negative Protein-Urine 1+ Abnormal Negative PH-Urine 6.5 5-9 Blood-Urine 2+ Abnormal Negative Ketones-Urine 1+ Abnormal Negative Bilirubin-Ur NEGATIVE Negative Glucose-Urine NEGATIVE Negative WBC-Urine TNTC Abnormal 0-5 RBC-Urine 10-15 Abnormal 0-2 Epith Cells-Ur MANY None Bacteria-Urine 4+ None CBC With Electronic 04/10/2010 [facility] White Blood 12.5 CUMM High 4.8-10.8 Diff [phone] Count Red Cell Count 4.31 CUMM 4.2-5.4 Hemoglobin 13.2 g/dL 12.0-16.0 Hematocrit 38 % 35-47 Mean Corpuscular Volume 88 um3 79-97 Mean Corpuscular Hemoglob 31 pg 27-31 Mean Corpuscular HGB [facility] 35 g/dL 32-36 Redcell Distribution WDTH 12 % 10.5-15 Platelet Count 291 CUMM 150-450 Mean Platelet Volume 8.2 um3 7.4-10.4 Gran % 81.6 % 38-83 Lymph % 11.6 % Low 25-47 Mononuclear % 5.1 % 1-9 Eosinophil % 1.2 % 0-6 Basophil % 0.5 % 0-2 Abs Lymphs 1.4 1.0-4.8 Abs Mononuclear 0.6 0-0.8 Absolute Neutrophil Count 10.2 High 1.5-7.7 Abs Eosinophils 0.2 0-0.6 Abs Basophils 0.1 0-0.2 Comp Metabolic Panel 04/10/2010 [facility] Sodium 137 mmol/L 135- 145 [phone] Potassium 4.1 mmol/L 3.5-5.0 Chloride 107 mmol/L 101-111 Co2 (Carbon Dioxide) 23.0 mmol/L 22-32 Anion Gap 7.0 mmol/L 2-11 39 Glucose 129 mg/dL High 70-100 40 BUN 9 mg/dL 6-24 Creatinine 0.70 mg/dL 0.50-1.40 One Over Creatinine 1.40 BUN/Creatinine Ratio 12.9 8-20 Calcium 9.2 mg/dL 8.1-9.9 41 Total Protein 6.4 GM/DL 6.2-8.1 Albumin 4.2 GM/DL 3.6-5.4 Globulin 2.2 GM/DL 2-4 Albumin/Globulin Ratio 1.9 1-3 Bilirubin Total 0.4 mg/dL 0.4-1.5 42 Alkaline Phosphatase 39 U/L 30-110 Alt (SGPT) 75 U/L High 14-54 Ast (Sgot) 40 U/L 12-42 eGFR Non- 102.4 > 60 eGFR 123.9 > 60 43 Laboratory test 04/10/2010 [facility] POSITIVE Abnormal Negative finding [phone] (HCG) Serum BHCG Quantitative 2349.0 MIU/ML High 0-5 44 Laboratory 12/09/2008 [facility] BHCG 338.0 MIU/ML High 0-5 45 test finding [phone] Quantitative Rapid Strep A 09/04/2007 [facility] Rapid Strep A The 46 [phone] 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[employer] <SEE NOTE> Laboratory 09/04/2007 [facility] Throat-Beta NGNBS 47 test finding [phone] Strep Culture Urine 08/15/2007 [facility] Urine NEGATIVE Negative 48 [phone] Qual Specific [place] 1.018 1.010-1.030 CBC With Electronic 08/02/2007 [facility] White Blood 11.9 CUMM High 4.8-10.8 Diff [phone] Count Abs Basophils 0 0-0.2 Abs Eosinophils 0.2 0-0.6 Absolute Neutrophil Count 9.1 High 1.5-7.7 Abs Lymphs 1.9 1.0-4.8 Abs Mononuclear 0.7 0-0.8 Basophil % 0.4 % 0-2 Hematocrit 41 % 35-47 49 Hemoglobin 14.2 g/dL 12.0-16.0 Eosinophil % 1.4 % 0-6 Gran % 76.2 % 38-83 Lymph % 16.1 % Low 20-45 Mean Corpuscular HGB [facility] 35 g/dL 32-36 Mean Corpuscular Hemoglob 30 pg 27-31 Mean Corpuscular Volume 86 um3 79-97 Mean Platelet Volume 8.4 um3 7.4-10.4 Mononuclear % 5.9 % 1-9 Platelet Count 351 CUMM 150-450 Red Cell Count 4.74 CUMM 4.2-5.4 Redcell Distribution WDTH 12 % 10.5-15 Liver Function Panel 08/02/2007 [facility] Albumin/Globulin Ratio 1.4 1-3 [phone] Albumin 4.2 GM/DL 3.6-5.4 Alkaline Phosphatase 52 U/L 30-110 Alt (SGPT) 34 U/L 14-54 Ast (Sgot) 18 U/L 12-42 Bilirubin Direct 0.1 mg/dL 0.1-0.5 Globulin 3.0 GM/DL 2-4 Indirect Bilirubin 0.5 mg/dL 0.1-0.75 Bilirubin Total 0.6 mg/dL 0.4-1.5 Total Protein 7.2 GM/DL 6.2-8.1 Laboratory test finding 08/02/2007 [facility] TSH 2.94 MIU/ML 0.34- 5.60 [phone] 1 Void, clear, light yellow 2 Because ethnic data is not always readily available, this report includes an eGFR for both -Americans and non- Americans. The National Kidney Disease Education Program (NKDEP) does not endorse the use of the MDRD equation for patients that are not between the ages of 18 and 70, are , have extremes of body size, muscle mass, or nutritional status, or are non- or non-. According to the National Kidney Foundation, irrespective of diagnosis, the stage of the disease is based on the level of kidney function: Stage Description GFR(mL/min/1.73 m(2)) 1 Kidney damage with normal or decreased GFR 90 2 Kidney damage with mild decrease in GFR 60-89 3 Moderate decrease in GFR 30-59 4 Severe decrease in GFR 15-29 5 Kidney failure <15 (or dialysis) 3 [facility] Severe Sepsis and Septic Shock Management Bundle Measure requires all lactic acids initially measuring >2.0 mmol/L be repeated. 4 Because ethnic data is not always readily available, this report includes an eGFR for both -Americans and non- Americans. The National Kidney Disease Education Program (NKDEP) does not endorse the use of the MDRD equation for patients that are not between the ages of 18 and 70, are , have extremes of body size, muscle mass, or nutritional status, or are non- or non-. According to the National Kidney Foundation, irrespective of diagnosis, the stage of the disease is based on the level of kidney function: Stage Description GFR(mL/min/1.73 m(2)) 1 Kidney damage with normal or decreased GFR 90 2 Kidney damage with mild decrease in GFR 60-89 3 Moderate decrease in GFR 30-59 4 Severe decrease in GFR 15-29 5 Kidney failure <15 (or dialysis) 5 <5.0 Negative 5.0 - 25.0 Indeterminate (Repeat testing recommended after 72 hours) >25.0 Positive Perimenopausal women can display HCG levels of up to 20 mIU/mL 6 SEE RESULT BELOW Name: RISHABHBIRGIT : [address]: Dheeraj Bob MD Acct: [id number] Unit: [id number] AGE: 42 Location: ED Re03/22/18 SEX: F Status: DEP ER SPEC: [id number] BAKARI: 03/22/[address]: Michele KITCHEN REQ: [id number] RECD: 03/22/18 STATUS: COMP [facility] DR: Neri Bob MD _ SOURCE: BLOOD,VENO SPDESC: ORDERED: Blood Cult COMMENTS: Patient is On Antibiotics? NO Procedure Result Reported Site Aerobic Culture Bottle Final 03/27/18- 2004 ML No Growth Day 5 Anaerobic Culture Bottle Final 03/27/182004 ML No Growth Day 5 * ML - Main Lab . END OF REPORT DEPARTMENT OF PATHOLOGY, [address] [place] [address] Ronen Francis M.D. Director [facility] # [id number] 7 void, clear, gold Pt having menses. 8 Because ethnic data is not always readily available, this report includes an eGFR for both -Americans and non- Americans. The National Kidney Disease Education Program (NKDEP) does not endorse the use of the MDRD equation for patients that are not between the ages of 18 and 70, are , have extremes of body size, muscle mass, or nutritional status, or are non- or non-. According to the National Kidney Foundation, irrespective of diagnosis, the stage of the disease is based on the level of kidney function: Stage Description GFR(mL/min/1.73 m(2)) 1 Kidney damage with normal or decreased GFR 90 2 Kidney damage with mild decrease in GFR 60-89 3 Moderate decrease in GFR 30-59 4 Severe decrease in GFR 15-29 5 Kidney failure <15 (or dialysis) 9 Desirable: <150 Borderline High: 150-199 High: 200-499 Very High: >500 10 Desirable: <200 Borderline High: 200-239 High: >239 11 Low: <40 Desirable: 40-60 High: >60 12 Desirable: <100 Near Optimal: 100-129 Borderline High: 130-159 High: 160-189 Very High: >189 13 Because ethnic data is not always readily available, this report includes an eGFR for both -Americans and non- Americans. The National Kidney Disease Education Program (NKDEP) does not endorse the use of the MDRD equation for patients that are not between the ages of 18 and 70, are , have extremes of body size, muscle mass, or nutritional status, or are non- or non-. According to the National Kidney Foundation, irrespective of diagnosis, the stage of the disease is based on the level of kidney function: Stage Description GFR(mL/min/1.73 m(2)) 1 Kidney damage with normal or decreased GFR 90 2 Kidney damage with mild decrease in GFR 60-89 3 Moderate decrease in GFR 30-59 4 Severe decrease in GFR 15-29 5 Kidney failure <15 (or dialysis) 14 Because ethnic data is not always readily available, this report includes an eGFR for both -Americans and non- Americans. The National Kidney Disease Education Program (NKDEP) does not endorse the use of the MDRD equation for patients that are not between the ages of 18 and 70, are , have extremes of body size, muscle mass, or nutritional status, or are non- or non-. According to the National Kidney Foundation, irrespective of diagnosis, the stage of the disease is based on the level of kidney function: Stage Description GFR(mL/min/1.73 m(2)) 1 Kidney damage with normal or decreased GFR 90 2 Kidney damage with mild decrease in GFR 60-89 3 Moderate decrease in GFR 30-59 4 Severe decrease in GFR 15-29 5 Kidney failure <15 (or dialysis) 15 If is still suspected, please repeat test after 48 to 72 hours. This test detects intact HCG only and is indicated for the early detection of . 16 This test detects intact HCG only and is indicated for the early detection of . 17 Because ethnic data is not always readily available, this report includes an eGFR for both -Americans and non- Americans. The National Kidney Disease Education Program (NKDEP) does not endorse the use of the MDRD equation for patients that are not between the ages of 18 and 70, are , have extremes of body size, muscle mass, or nutritional status, or are non- or non-. According to the National Kidney Foundation, irrespective of diagnosis, the stage of the disease is based on the level of kidney function: Stage Description GFR(mL/min/1.73 m(2)) 1 Kidney damage with normal or decreased GFR 90 2 Kidney damage with mild decrease in GFR 60-89 3 Moderate decrease in GFR 30-59 4 Severe decrease in GFR 15-29 5 Kidney failure <15 (or dialysis) 18 Acute inflammation: >10.00 19 Unable to report test result due to hemolysis. 20 Unable to report test result due to hemolysis. 21 Because ethnic data is not always readily available, this report includes an eGFR for both -Americans and non- Americans. The National Kidney Disease Education Program (NKDEP) does not endorse the use of the MDRD equation for patients that are not between the ages of 18 and 70, are , have extremes of body size, muscle mass, or nutritional status, or are non- or non-. According to the National Kidney Foundation, irrespective of diagnosis, the stage of the disease is based on the level of kidney function: Stage Description GFR(mL/min/1.73 m(2)) 1 Kidney damage with normal or decreased GFR 90 2 Kidney damage with mild decrease in GFR 60-89 3 Moderate decrease in GFR 30-59 4 Severe decrease in GFR 15-29 5 Kidney failure <15 (or dialysis) 22 If is still suspected, please repeat test after 48 to 72 hours. This test detects intact HCG only and is indicated for the early detection of . 23 Because ethnic data is not always readily available, this report includes an eGFR for both -Americans and non- Americans. The National Kidney Disease Education Program (NKDEP) does not endorse the use of the MDRD equation for patients that are not between the ages of 18 and 70, are , have extremes of body size, muscle mass, or nutritional status, or are non- or non-. According to the National Kidney Foundation, irrespective of diagnosis, the stage of the disease is based on the level of kidney function: Stage Description GFR(mL/min/1.73 m(2)) 1 Kidney damage with normal or decreased GFR 90 2 Kidney damage with mild decrease in GFR 60-89 3 Moderate decrease in GFR 30-59 4 Severe decrease in GFR 15-29 5 Kidney failure <15 (or dialysis) 24 This test detects intact HCG only and is indicated for the early detection of . 25 RUN DATE: 12/20/11 [facility] NMI LIVE PAGE 1 RUN TIME: 1530 Specimen Inquiry RUN USER: INTERFACE Name: BIRGIT KEATING#: [id number] Status: REG ER Re12/20/11 Age/Sex: 36/F Unit#: [id number] Location: [facility] : [birth year] SPEC #: [id number] BAKARI: 12/20/11 STATUS: RAINA KEERTHI #: [id number] RECD: 12/20/[address]: [facility] SOURCE: THROAT ENTR: 12/20/[address]: Anisha MALDONADO,[facility]: ORDERED: RAPID STREP A Procedure Result Verified Site > RAPID STREP A Final 12/20/11- 1529 ML RAPID STREP POSITIVE FOR GROUP A STREP BY ENZYME IMMUNOASSAY The 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[employer] and regulatory agencies both recommend that a throat culture for beta strep be performed if a Rapid Group A Strep assay yields a negative result. Therefore a culture will be automatically performed on all negative samples. - [facility] Permit #[id number] [address] [place] [id number] DEPARTMENT OF PATHOLOGY, [facility] DATES [place], [place] [address] [facility] Permit #[id number] Ronen Francis M.D. Director Stephen Trujillo M.D. Applier 26 Test Performed by: [facility] Dpt of Lab Med and Pathology [address] [place] [address] Chief Minister: Kvng Santoyo III, M.D. 27 RONEN FRANCIS 28 Anion gap measurement may be of limited value in the presence of any alkalosis, especially in a combined acid base disorder. . 29 A metabolite of Naproxen, O-desmethylnaproxen, has been shown to interfere with the Jendrassik-Walters method for measuring total bilirubin. Samples from patients who have taken Naproxen have shown spurious elevation in total bilirubin levels. 30 Because ethnic data is not always readily available, this report includes an eGFR for both -Americans and non- Americans. The National Kidney Disease Education Program (NKDEP) does not endorse the use of the MDRD equation for patients that are not between the ages of 18 and 70, are , have extremes of body size, muscle mass, or nutritional status, or are non- or non-. According to the National Kidney Foundation, irrespective of diagnosis, the stage of the disease is based on the level of kidney function: Stage Description GFR(mL/min/1.73 m(2)) 1 Kidney damage with normal or decreased GFR 90 2 Kidney damage with mild decrease in GFR 60-89 3 Moderate decrease in GFR 30-59 4 Severe decrease in GFR 15-29 5 Kidney failure <15 (or dialysis) 31 Lymphopenia % 32 Anion gap measurement may be of limited value in the presence of any alkalosis, especially in a combined acid base disorder. . 33 Note change in reference range as of 05/10/08. The change was based on recommendations from the [place] [employer]. 34 Please note change in reference range effective 08 . 35 A metabolite of Naproxen, O-desmethylnaproxen, has been shown to interfere with the Jendrassik-Walters method for measuring total bilirubin. Samples from patients who have taken Naproxen have shown spurious elevation in total bilirubin levels. 36 Because ethnic data is not always readily available, this report includes an eGFR for both -Americans and non- Americans. The National Kidney Disease Education Program (NKDEP) does not endorse the use of the MDRD equation for patients that are not between the ages of 18 and 70, are , have extremes of body size, muscle mass, or nutritional status, or are non- or non-. According to the National Kidney Foundation, irrespective of diagnosis, the stage of the disease is based on the level of kidney function: Stage Description GFR(mL/min/1.73 m(2)) 1 Kidney damage with normal or decreased GFR 90 2 Kidney damage with mild decrease in GFR 60-89 3 Moderate decrease in GFR 30-59 4 Severe decrease in GFR 15-29 5 Kidney failure <15 (or dialysis) 37 New Reference Range and Interpretation effective 06/23/2002 TnI (ng/ml) INTERPRETATION Less Than 0.06 ng/mL NOT SUPPORTIVE OF DIAGNOSIS OF RI 0.06 - 0.50 ng/ml INDETERMINATE: SUGGEST SERIAL STUDIES IF CLINICALLY INDICATED. Greater than 0.5 ng/mL CONSISTENT WITH DIAGNOSIS OF RI . 38 If is still suspected, please repeat test after 48 to 72 hours. . 39 Anion gap measurement may be of limited value in the presence of any alkalosis, especially in a combined acid base disorder. . 40 Note change in reference range as of 05/10/08. The change was based on recommendations from the [employer]. 41 Please note change in reference range effective 08 . 42 A metabolite of Naproxen, O-desmethylnaproxen, has been shown to interfere with the Jendrassik-Walters method for measuring total bilirubin. Samples from patients who have taken Naproxen have shown spurious elevation in total bilirubin levels. 43 Because ethnic data is not always readily available, this report includes an eGFR for both -Americans and non- Americans. The National Kidney Disease Education Program (NKDEP) does not endorse the use of the MDRD equation for patients that are not between the ages of 18 and 70, are , have extremes of body size, muscle mass, or nutritional status, or are non- or non-. According to the National Kidney Foundation, irrespective of diagnosis, the stage of the disease is based on the level of kidney function: Stage Description GFR(mL/min/1.73 m(2)) 1 Kidney damage with normal or decreased GFR 90 2 Kidney damage with mild decrease in GFR 60-89 3 Moderate decrease in GFR 30-59 4 Severe decrease in GFR 15-29 5 Kidney failure <15 (or dialysis) 44 * MALES: < 5.0 MIU/ML NON FEMALES < 5.0 MIU/ML APPROX GESTATIONAL AGE APPROX HCG RANGE 0-1 WEEK < 5.0-50 1-2 WEEKS 50-500 2-3 WEEKS 100-5000 3-4 WEEKS 500-10,000 1-2 MONTHS 10,000-200,000 2-3 MONTHS 15,000-100,000 PLEASE NOTE: The intended use of this assay is the quantitative determination of HCG in human serum or plasma for the early detection of . These assays should not be used to diagnose any condition unrelated to . If an HCG level is inconsistent with, or unsupported by, clinical evidence, results should be confirmed by an alternate HCG method. . 45 * MALES: < 5.0 MIU/ML NON FEMALES < 5.0 MIU/ML APPROX GESTATIONAL AGE APPROX HCG RANGE 0-1 WEEK < 5.0-50 1-2 WEEKS 50-500 2-3 WEEKS 100-5000 3-4 WEEKS 500-10,000 1-2 MONTHS 10,000-200,000 2-3 MONTHS 15,000-100,000 PLEASE NOTE: The intended use of this assay is the quantitative determination of HCG in human serum or plasma for the early detection of . These assays should not be used to diagnose any condition unrelated to . If an HCG level is inconsistent with, or unsupported by, clinical evidence, results should be confirmed by an alternate HCG method. . 46 The 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 and regulatory agencies both recommend that a throat culture for beta strep be performed if a Rapid Group A Strep assay yields a negative result. Therefore a culture will be automatically performed on all negative samples. N^NEGATIVE FOR GROUP A STREP BY ENZYME IMMUNOASSAY^STREPA 47 NEGATIVE FOR GROUP A STREP 48 If is still suspected, please repeat test after 48 to 72 hours. . 49 Lymphopenia % Procedures Date Code Description Status 03/03/2019 22955 Electrocardiogram Complete Completed 11/18/2017 83336 Electrocardiogram Complete Completed Encounters Type Date Location Provider Dx Diagnosis Office Visit 03/03/2019 Main Office Marylu Reno, M51.36 Other intervertebral 11:00a P.A. disc degeneration, lumbar region G43.109 Migraine with aura, not intractable, w/o status migrainosus E03.9 Hypothyroidism, unspecified Z01.818 Encounter for other preprocedural examination Z91.013 Allergy to seafood Z88.8 Allergy status to oth drug/meds/biol subst status J03.90 Acute tonsillitis, unspecified Z68.30 Body mass index (BMI) 30.0-30.9, adult Office Visit 02/10/2019 9:15a Main Office Neri Lancaster M.D. M54.5 Low back pain M51.36 Other intervertebral disc degeneration, lumbar region F34.1 Dysthymic disorder G43.109 Migraine with aura, not intractable, w/o status migrainosus F17.210 Nicotine dependence, cigarettes, uncomplicated E03.9 Hypothyroidism, unspecified Office Visit 12/09/2018 9:30a Main Office Neri Lancaster M.D. M54.5 Low back pain M51.36 Other intervertebral disc degeneration, lumbar region F34.1 Dysthymic disorder G43.109 Migraine with aura, not intractable, w/o status migrainosus F17.210 Nicotine dependence, cigarettes, uncomplicated E03.9 Hypothyroidism, unspecified Office Visit 10/14/2018 9:15a Main Office Anisha F17.210 Nicotine dependence, Shea He cigarettes, uncomplicated M54.5 Low back pain M51.36 Other intervertebral disc degeneration, lumbar region F34.1 Dysthymic disorder E03.9 Hypothyroidism, unspecified Office Visit 08/19/2018 10:15a Main Office Neri Lancaster M.D. M54.5 Low back pain M51.36 Other intervertebral disc degeneration, lumbar region F34.1 Dysthymic disorder E03.9 Hypothyroidism, unspecified F17.210 Nicotine dependence, cigarettes, uncomplicated Office Visit 06/24/2018 10:15a Main Office Neri Lancaster M.D. M54.5 Low back pain M51.36 Other intervertebral disc degeneration, lumbar region F34.1 Dysthymic disorder G43.109 Migraine with aura, not intractable, w/o status migrainosus I87.2 Venous insufficiency (chronic) (peripheral) E03.9 Hypothyroidism, unspecified Z23 Encounter for immunization F17.210 Nicotine dependence, cigarettes, uncomplicated M43.06 Spondylolysis, lumbar region Office Visit 04/29/2018 9:30a Main Office Neri Lancaster M.D. M54.5 Low back pain M51.36 Other intervertebral disc degeneration, lumbar region G43.109 Migraine with aura, not intractable, w/o status migrainosus F34.1 Dysthymic disorder Office Visit 03/22/2018 4:00p Main Office Angelique Zaman03.116 Cellulitis of left P.A. lower limb L03.115 Cellulitis of right lower limb M54.5 Low back pain I87.2 Venous insufficiency (chronic) (peripheral) Office Visit 03/16/2018 4:20p Main Office Neha Izaguirre L03.116 Cellulitis of left PA lower limb L03.115 Cellulitis of right lower limb M54.5 Low back pain R60.0 Localized edema R31.29 Other microscopic hematuria Office Visit 03/04/2018 2:15p Main Office Anisha M51.36 Other intervertebral Shea He disc degeneration, lumbar region M54.5 Low back pain Z79.891 halfway (current) use of opiate analgesic L03.116 Cellulitis of left lower limb Office Visit 02/02/2018 11:15a Main Office Winston Lancaster1.36 Other sherman He M.D. 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 disc degeneration, lumbar region M54.5 Low back pain Z79.891 halfway (current) use of opiate analgesic F34.1 Dysthymic disorder F11.23 Opioid dependence with withdrawal Office Visit 12/01/2017 9:45a Main Office Winston Lancaster1.36 Other sherman He M.D. 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 preprocedural examination M51.36 Other intervertebral disc degeneration, lumbar region M54.5 Low back pain Z79.891 halfway (current) use of opiate analgesic Z13.220 Encounter for screening for lipoid disorders F33.9 Major depressive disorder, recurrent, unspecified Office Visit 10/04/2017 10:15a Main Office Neri Lancaster M.D. 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 M54.5 Low back pain M51.36 Other intervertebral disc degeneration, lumbar region Z79.891 halfway (current) use of opiate analgesic G43.109 Migraine with aura, not intractable, w/o status migrainosus Z12.4 Encounter for screening for malignant neoplasm of cervix Office Visit 06/30/2017 11:00a Main Office Neri Lancaster M.D. M54.5 Low back pain M51.36 Other intervertebral disc degeneration, lumbar region Z79.891 halfway (current) use of opiate analgesic G43.109 Migraine with aura, not intractable, w/o status migrainosus Z23 Encounter for immunization Office Visit 05/28/2017 2:45p Main Office Neri Lancaster M.D. M54.5 Low back pain M51.36 Other intervertebral disc degeneration, lumbar region Z79.891 halfway (current) use of opiate analgesic F34.1 Dysthymic disorder G43.109 Migraine with aura, not intractable, w/o status migrainosus Office Visit 04/20/2017 10:15a Main Office Neri Lancaster M.D. 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 E03.9 Hypothyroidism, unspecified M51.36 Other intervertebral disc degeneration, lumbar region Office Visit 01/01/2017 11:15a Main Office Neri Lancaster Z79.891 terminal supervisor M.D. (current) use of opiate analgesic M51.36 Other intervertebral disc degeneration, lumbar region F34.1 Dysthymic disorder E03.9 Hypothyroidism, unspecified M25.512 Pain in left shoulder Office Visit 11/02/2016 9:45a Main Office Neri Lancaster M.D. 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 M54.5 Low back pain M51.36 Other intervertebral disc degeneration, lumbar region Z79.891 halfway (current) use of opiate analgesic Z71.89 Other specified counseling Office Visit 05/04/2016 9:30a Main Office Neri Lancaster M.D. 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 M54.5 Low back pain M51.36 Other intervertebral disc degeneration, lumbar region Z79.891 halfway (current) use of opiate analgesic G47.00 Insomnia, unspecified E03.9 Hypothyroidism, unspecified Office Visit 02/21/2016 10:15a Main Office Neri Lancaster M.D. 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 M54.5 Low back pain M51.36 Other intervertebral disc degeneration, lumbar region G47.00 Insomnia, unspecified E03.9 Hypothyroidism, unspecified Office Visit 10/22/2015 9:30a Main Office Neri Lancaster M.D. M54.5 Low back pain M51.36 Other intervertebral disc degeneration, lumbar region G47.00 Insomnia, unspecified Office Visit 10/01/2015 9:30a Main Office Neri Lancaster M.D. M54.5 Low back pain M51.36 Other intervertebral disc degeneration, lumbar region G47.00 Insomnia, unspecified Office Visit 08/30/2015 10:30a Main Office Neri Lancaster M.D. M54.5 Low back pain M51.36 Other intervertebral disc degeneration, lumbar region G47.00 Insomnia, unspecified Z71.89 Other specified counseling Office Visit 07/17/2015 9:30a Main Office Anisha M51.36 Other intervertebral Shea He disc degeneration, lumbar region M54.5 Low back pain G47.00 Insomnia, unspecified Office Visit 06/17/2015 9:30a Main Office Neri Lancaster M.D. M54.5 Low back pain M51.36 Other intervertebral disc degeneration, lumbar region G47.00 Insomnia, unspecified E03.9 Hypothyroidism, unspecified Office Visit 05/20/2015 1:15p Main Office Neri Lancaster M.D. 724.2 Lumbago 722.52 Intervertebral Disc Degeneration Lumbar 724.5 Backache Unspec 780.52 Insomnia Unspecified Office Visit 04/22/2015 1:15p Main Office Neri Lancaster 724.5 Backache Unspec M.D. 722.52 Intervertebral Disc Degeneration Lumbar 724.2 Lumbago 785.1 Palpitations 244.9 Hypothyroidism Other Unspec 780.52 Insomnia Unspecified Office Visit 03/20/2015 1:30p Main Office Neri Lancaster 724.5 Backache Unspec M.D. 722.52 Intervertebral Disc Degeneration Lumbar 724.2 Lumbago 782.3 Edema 244.9 Hypothyroidism Other Unspec 785.1 Palpitations Office Visit 03/04/2015 10:15a Main Office Neri Lancaster 724.5 Backache Unspec M.D. 722.52 Intervertebral Disc Degeneration Lumbar 724.2 Lumbago 782.3 Edema 244.9 Hypothyroidism Other Unspec Office Visit 11/30/2014 1:15p Main Office Neri Lancaster 724.5 Backache Unspec M.D. 722.52 Intervertebral Disc Degeneration Lumbar 724.2 Lumbago 787.02 Nausea Alone 782.3 Edema Office Visit 09/18/2014 9:45a Main Office Neri Lancaster M.D. 724.2 Lumbago 722.52 Intervertebral Disc Degeneration Lumbar 724.5 Backache Unspec 787.02 Nausea Alone Office Visit 09/04/2014 10:00a Main Office Neri Lancaster M.D. 724.2 Lumbago 722.52 Intervertebral Disc Degeneration Lumbar 724.5 Backache Unspec 244.9 Hypothyroidism Other Unspec Office Visit 06/05/2014 8:45a Main Office Neri Lancaster M.D. 724.2 Lumbago 722.52 Intervertebral Disc Degeneration Lumbar 724.5 Backache Unspec 244.9 Hypothyroidism Other Unspec 787.02 Nausea Alone Office Visit 03/06/2014 9:45a Main Office Neri Lancaster M.D. 724.2 Lumbago 722.52 Intervertebral Disc Degeneration Lumbar 724.5 Backache Unspec 244.9 Hypothyroidism Other Unspec 214.8 Lipoma Other Specified Sites Office Visit 12/05/2013 9:45a Main Office Neri Lancaster M.D. 724.2 Lumbago 722.52 Intervertebral Disc Degeneration Lumbar 724.5 Backache Unspec 244.9 Hypothyroidism Other Unspec 625.6 Stress Incontinence Female Office Visit 09/05/2013 8:45a Main Office Neri Lancaster M.D. 724.2 Lumbago 722.52 Intervertebral Disc Degeneration Lumbar 724.5 Backache Unspec 244.9 Hypothyroidism Other Unspec Office Visit 06/06/2013 9:30a Main Office Neri Lancaster M.D. 724.2 Lumbago 722.52 Intervertebral Disc Degeneration Lumbar 724.5 Backache Unspec 625.6 Stress Incontinence Female 729.82 Cramp Of Limb 599.0 UTI Urinary Tract Infection Site Not Spec Office Visit 03/07/2013 10:00a Main Office Neri Lancaster M.D. 724.2 Lumbago 722.52 Intervertebral Disc Degeneration Lumbar 724.5 Backache Unspec 244.9 Hypothyroidism Other Unspec 785.1 Palpitations Office Visit 12/05/2012 10:15a Main Office Neri Lancaster M.D. 724.2 Lumbago 722.52 Intervertebral Disc Degeneration Lumbar 244.9 Hypothyroidism Other Unspec Office Visit 09/05/2012 9:30a Main Office Neri Lancaster M.D. 724.2 Lumbago 722.52 Intervertebral Disc Degeneration Lumbar 244.9 Hypothyroidism Other Unspec Office Visit 07/05/2012 10:00a Main Office Neri Lancaster M.D. 724.2 Lumbago 722.52 Intervertebral Disc Degeneration Lumbar Office Visit 04/26/2012 11:00a Main Office Neri Lancaster M.D. 724.2 Lumbago 722.52 Intervertebral Disc Degeneration Lumbar Office Visit 04/06/2012 10:45a Main Office Neri Lancaster M.D. 724.2 Lumbago 722.52 Intervertebral Disc Degeneration Lumbar Office Visit 03/22/2012 2:30p Main Office Neri Lancaster M.D. 724.2 Lumbago 722.52 Intervertebral Disc Degeneration Lumbar Office Visit 03/18/2012 10:30a Main Office Neri Lancaster M.D. 724.2 Lumbago Office Visit 12/14/2011 3:30p Main Office Neri Lancaster M.D. 724.2 Lumbago 244.9 Hypothyroidism Other Unspec Office Visit 11/11/2011 3:45p Main Office Neri Lancaster 724.2 Lumbacandace M.DFer Office Visit 09/10/2011 10:45a Main Office Shazia Jin MD 724.5 Backache Unspec 599.0 UTI Urinary Tract Infection Site Not Spec Office Visit 04/15/2011 10:45a Main Office Anisha 244.9 Hypothyroidism Westley He M.D. Unspec 785.1 Palpitations V03.82 Streptococcus Pneumoniae Vaccination Spec Other V07.2 Prophylactic Immunotherapy Office Visit 01/20/2011 11:00a Main Office Anisha, 244.9 Hypothyroidism Westley He M.D. Unspec 346.00 Migraine Classical W/O Intractable W/O Status Migrainosus 785.1 Palpitations Office Visit 08/29/2010 1:15p Main Office Silcoff, 244.9 Hypothyroidism Other Shea He Unspec 785.1 Palpitations 346.00 Migraine Classical W/O Intractable W/O Status Migrainosus V22.2 State Incidental Normal Office Visit 06/20/2010 3:45p Main Office Anisha, 244.9 Hypothyroidism Westley He M.D. Unspec 785.1 Palpitations Office Visit 05/09/2010 2:30p Main Office Neri Lancaster M.D. 785.1 Palpitations 724.5 Backache Unspec 244.9 Hypothyroidism Other Unspec 592.9 Calculus Urinary Unspec Office Visit 11/09/2008 10:15a Main Office Neri Lancaster M.D. 724.2 Lumbago 724.3 Sciatica Office Visit 10/26/2008 10:00a Main Office Heidy Robert MD 724.3 Sciatica Office Visit 08/02/2007 2:00p Main Office Anisha 574.20 Calculus Gallbladder Shea He W/O Cholecystitis W/O Obstruction 244.9 Hypothyroidism Other Unspec V65.49 Counseling Other Spec 794.5 Thyroid Study Abnormal 305.1 Tobacco Use Disorder Plan of Treatment Future Appointment(s):04/12/2019 11:15 am - Neri Lancaster M.D. at Main [facility]03/03/2019 - Omar ZamanM51.36 Other intervertebral disc degeneration, lumbar regionComments:Rapid strep and strep culture were negativeFollow up:Stop the suboxone for 2 days as instructed but surgeon, pain management as recommended with that office and the hospital. Discussed the transitioning between suboxone and narcotic pain meds with Dr. Solares.G43.109 Migraine with aura, not intractable, without status mwywtpywV73.9 Hypothyroidism , jjtegfcqvulF16.818 Encounter for other preprocedural examinationNew Labs:[facility], Ordered: 03/03/19Comments:Patient is low risk for surgery planned.they have no prior anaesthetic related complications.they are advised to inform their surgeon of any acute illness which may occur between now and surgical date. Pre operative labs are not available to me as of this date. the surgeon and anaesthetist will need to review these prior to surgery and notify me of any questions Cleared for planned surgery.Z91.013 Allergy to seafoodFollow up: Caution with this nhxiparV31.8 Allergy status to other drugs, medicaments and biological suFollow up:Please note multiple medication allergies Pt had allergy to betadine. (This is not noted on the preoperative surgical request) J03.90 Acute tonsillitis, unspecifiedFollow up:all negative results: pt has mildly enlarged cryptic tonsils. Should not be of concern for surgery.Z68.30 Body mass index (BMI) 30.0-30.9, adult
--- OUTSIDE RECORDS SUMMARY | 2019-03-14 05:58 | XMS REPORT | Continuity of Care Document ---
:1975 External Reference #:[id number] Author Name Margarita Ordoñez Care Team Providers Name Role Phone Neri Lancaster MD Primary Care Physician Unavailable Payers Date Identification Numbers Payment Provider Subscriber Policy Number: [id number] Medicare Yoselyn Driscoll PayID: [id number] [address] [place] [address] Policy Number: [id number] Medicaid Yoselyn Driscoll Group Name: 1 [address] PayID: [id number] [place] [address] Expires: 2018 Policy Number: [id number] [place] Yoselyn Driscoll PayID: [id number] [address] [place] [address] Problems Active Problems Provider Date Low back pain Reena Pearson MD Onset: 09/21/2017 Lumbar spondylolisthesis Reena Pearson MD Onset: 09/21/2017 Lumbosacral spondylosis without myelopathy Reena Pearson MD Onset: Obesity Reena Pearson MD Onset: 10/12/2017 Spondylolisthesis L5/S1 level Reena Pearson MD Onset: 12/07/2017 Hypothyroidism Reena Pearson MD Onset: 12/07/2017 Family History Date Family Member(s) Observation Comments Father Kidney Disease Father Diabetes Mother Breast Cancer Mother Alzheimer's Disease Mother Diabetes Social History Type Date Description Comments Sex Unknown Marital Status Lives With Alone Occupation Disabled ETOH Use Rarely consumes alcohol Tobacco Use Start: Unknown Patient is a current Pt on Chantix,has smoker, smokes every about 0-2 cigarettes day a day now & some days none. Recreational Drug Use Denies Drug Use Smoking Status Reviewed: 02/22/19 Patient is a current Pt on Chantix,has smoker, smokes every about 0-2 cigarettes day a day now & some days none. Exercise Type/Frequency Exercises regularly Allergies, Adverse Reactions, Alerts Active Allergies Reaction Severity Comments Date Ahist Antihistamine 09/21/2017 Bismuth Subsalicylate 09/21/2017 Codeine 09/21/2017 Diphenhydramine 09/21/2017 Famotidine 09/21/2017 Fish Oil 09/21/2017 Lodine 09/21/2017 Lorazepam 09/21/2017 Shellfish-derived Products 10/12/2017 Benadryl 10/12/2017 Sorbitol 10/12/2017 Tape Adhesive 10/12/2017 CT Contrast 12/07/2018 Medications Active Medications SIG Qnty Indications Ordering Date Provider Tizanidine HCL 1 three times a day Unknown 4mg as needed Capsules Ibuprofen baclofenby mouth Unknown 800mg Tablets three times a day as needed Baclofen 1 tab by mouth Unknown 20mg Tablets three times a day Topiramate 0.5 tab by mouth Unknown 50mg Tablets twice a day Escitalopram Oxalate 1 by mouth every Unknown 20mg day Tablets Furosemide 1 by mouth every Unknown 20mg Tablets day Levothyroxine Sodium 1 by mouth every Unknown day 150mcg Tablets Chantix Continuing 1 by mouth twice a Unknown Month Dima day 1mg Tablets Buprenorphine take 1/2 tablet by Unknown HCL-Naloxone HCL mouth four times a 8-2mg day for chronic Tablets Sub pain and Opiod Withdrawl History Medications No Active Medications Unknown 09/21/2017 - 09/21/2017 Tramadol HCL 1-2 po qid prn 90tabs Hollis Nguyen 03/08/2012 - 50mg Tablets Shea Burrows 09/21/2017 Hydromorphone HCL 1 tablet q6 hours Unknown - 4mg as needed 12/07/2018 Tablets breakthru pain Hydromorphone HCL ER Neri Lancaster, - 16mg 12/07/2018 T24a Vital Signs Date Vital Result Comment 02/22/2019 11:43am Height 67 inches 5'7" Weight 193.00 lb BP Systolic Sitting 118 mmHg BP Diastolic Sitting 70 mmHg Pain Level 7 BMI (Body Mass Index) 30.2 kg/m2 02/03/2019 10:39am Height 67 inches 5'7" Weight 187.00 lb BP Systolic Sitting 138 mmHg BP Diastolic Sitting 80 mmHg Pain Level 9 BMI (Body Mass Index) 29.3 kg/m2 12/07/2018 9:06am Height 67 inches 5'7" Weight 190.00 lb BP Systolic Sitting 110 mmHg BP Diastolic Sitting 70 mmHg Pain Level 8 BMI (Body Mass Index) 29.8 kg/m2 06/21/2018 9:51am Height 67 inches 5'7" Weight 182.00 lb BP Systolic Sitting 110 mmHg BP Diastolic Sitting 60 mmHg Pain Level 8 BMI (Body Mass Index) 28.5 kg/m2 12/22/2017 10:42am Height 67 inches 5'7" Weight 182.00 lb Heart Rate 76 /min BP Systolic Sitting 104 mmHg BP Diastolic Sitting 82 mmHg Pain Level 8 BMI (Body Mass Index) 28.5 kg/m2 12/20/2017 10:32am Height 67 inches 5'7" Weight 182.00 lb Heart Rate 72 /min BP Systolic Sitting 100 mmHg BP Diastolic Sitting 60 mmHg Pain Level 8 BMI (Body Mass Index) 28.5 kg/m2 12/07/2017 9:11am Height 67 inches 5'7" Weight 182.00 lb Heart Rate 68 /min BP Systolic Sitting 122 mmHg BP Diastolic Sitting 70 mmHg Pain Level 8 BMI (Body Mass Index) 28.5 kg/m2 10/12/2017 9:22am Height 67 inches 5'7" Weight 182.00 lb Heart Rate 88 /min BP Systolic Sitting 126 mmHg BP Diastolic Sitting 76 mmHg Pain Level 8 BMI (Body Mass Index) 28.5 kg/m2 09/21/2017 1:10pm Height 67 inches 5'7" Weight 182.00 lb Heart Rate 85 /min BP Systolic Sitting 110 mmHg BP Diastolic Sitting 66 mmHg Pain Level 8 BMI (Body Mass Index) 28.5 kg/m2 Results Test Date Facility Test Result H/L Range Note CBC No Diff 12/02/2017 [facility] White Blood 8.7 10^3/uL N 3.5-10.[address] [place] [address] [phone] Red Blood Count 4.41 10^6/uL N 4.0-5.4 Hemoglobin 12.9 g/dL N 12.0-16.0 Hematocrit 39 % N 35-47 Mean Corpuscular Volume 88 fL N 80-97 Mean Corpuscular Hemoglobin 29 pg N 27-31 Mean Corpuscular HGB Conc 33 g/dL N 31-36 Red Cell Distribution Width 15 % N 10.5-15 Platelet Count 263 10^3/uL N 150-450 Mean Platelet Volume 9 um3 N 7.4-10.4 Inr/Protime 12/02/2017 [facility] Inr 0.90 N 0.77-1.[address] [place] [address] [phone] Laboratory test 12/02/2017 [facility] Partial 33.2 seconds N 26.0-36.[address] [place] [address] PTT [phone] Type & Screen 12/02/2017 [facility] Patient A Positive [address] [place] [address] [phone] Antibody Screen NEGATIVE Basic Metabolic Panel 12/02/2017 [facility] Sodium 141 mmol/L N 133-[address] [place] [address] [phone] Potassium 4.1 mmol/L N 3.5-5.0 Chloride 109 mmol/L N 101-111 Co2 Carbon Dioxide 27 mmol/L N 22-32 Anion Gap 5 mmol/L N 2-11 Glucose 91 mg/dL N 70-100 Blood Urea Nitrogen 9 mg/dL N 6-24 Creatinine 0.70 mg/dL N 0.51-0.95 BUN/Creatinine Ratio 12.9 N 8-20 Calcium 9.1 mg/dL N 8.6-10.3 Egfr Non- 92.2 >60 Egfr 118.6 >60 1 Laboratory test 12/02/2017 [facility] TSH (Thyroid 0.94 mcIU/mL N 0.34-5.[address] Stim [place]) [place] [address] [phone] 1 Because ethnic data is not always readily [...] 15-29 5 Kidney failure <15 (or dialysis) Procedures Date Code Description Status 12/02/2017 [address]5975 EKG, Interpretation Only Completed Encounters Type Date Location Provider Dx Diagnosis Office Visit 02/03/2019 [facility] M43.17 Spondylolisthesis, 10:30a [facility] Pearson MD lumbosacral region M47.27 Other spondylosis with radiculopathy, lumbosacral region Office 12/07/2018 [facility] M43.17 Spondylolisthesis, Visit 9:00a [facility] Pearson MD lumbosacral region E66.8 Other obesity M47.27 Other spondylosis with radiculopathy, lumbosacral region Z72.0 Tobacco use Office 06/21/2018 [facility] M43.17 Spondylolisthesis, Visit 10:00a [facility] Pearson MD lumbosacral region M47.27 Other spondylosis with radiculopathy, lumbosacral region E66.8 Other obesity Office 12/22/2017 [facility] M43.17 Spondylolisthesis, Visit 11:00a [facility] Pearson MD lumbosacral region M47.27 Other spondylosis with radiculopathy, lumbosacral region E66.8 Other obesity Z72.0 Tobacco use Office 12/20/2017 [facility] M43.17 Spondylolisthesis, Visit 10:50a [facility] Emanuel M.D. lumbosacral region F11.20 Opioid dependence, uncomplicated Z72.0 Tobacco use Office Visit 12/07/2017 9:15a [facility] M54.5 Low back [facility] MD Lili pain M43.17 Spondylolisthesis, lumbosacral region M47.27 Other spondylosis with radiculopathy, lumbosacral region E66.8 Other obesity E03.9 Hypothyroidism, unspecified Office Visit 10/12/2017 9:30a [facility] M54.5 Low back [facility] MD Lili pain M43.17 Spondylolisthesis, lumbosacral region M47.27 Other spondylosis with radiculopathy, lumbosacral region E66.8 Other obesity Office Visit 09/21/2017 1:00p [facility] M54.5 Low back [facility] MD Lili pain M43.17 Spondylolisthesis, lumbosacral region M47.27 Other spondylosis with radiculopathy, lumbosacral region Office Visit 01/10/2014 [facility] Denis, 346.03 Migraine W/Aura 2:12p [facility] Shea W/Intractable Migraine, So Stated Office Visit 01/10/2014 [facility] Lenardkarlos Ramírez 346.13 Migraine W/ Out 8:33a Assdebbie wetzel II, M.D. Aura W/Intractable Hospitalists Migraine,So Stated 244.9 Hypothyroidism Other Unspec Office Visit 03/08/2012 9:00a [facility] Hollis Nguyen 721.3 Spondylosis [facility] Shea Burrows Lumbar W/O Myelopathy Plan of Treatment Future Appointment(s):06/14/2019 10:00 am - Reena Pearson MD at [facility]04/14/2019 10:00 am - Reena Pearson MD at [facility]03/22/2019 10:00 am - Reena Pearson MD at [facility]03/14/2019 7:30 am - FIDELINA Carter at [facility]03/14/2019 7:30 am - Reena Pearson MD at [facility]02/22/2019 - Kelvin Johnson, PAM43.17 Spondylolisthesis, lumbosacral regionFollow up:Follow up day of surgery
[2019-03-14] MEDS: HYDROmorphone INJ1* 1 MG/ML SYRINGE IV PRN ×2 (13:37→13:48)
[2019-03-14] MEDS: oxyCODONE/Acetamin 5/325 MG* TAB PO PRN ×2 (13:53→13:55)
--- NOTE | 2019-03-14 15:15 | OP ---
DATE OF OPERATION: 03/14/19 - ROOM #331 DATE OF : 77 SURGEON: Reena Pearson MD MANUFACTURER: FIDELINA Carter. The case was done with assistance of surgical PA because of the complexity of the case. ANESTHESIA: General. PRE-OP DIAGNOSES: Degenerative disk disease and grade 1 spondylolisthesis at L5 -S1 with bilateral pars defect. POST-OP DIAGNOSES: Degenerative disk disease and grade 1 spondylolisthesis at L5-S1 with bilateral pars defect. OPERATIVE PROCEDURE: The patient underwent left L5-S1 MIS TLIF with PEEK interbody cage, right iliac crest bone graft through a separate incision, bilateral L5-S1 pedicle screw placement, use of locally harvested bone graft and DBX with intraoperative navigation and intraoperative monitoring. ESTIMATED BLOOD LOSS: 75 cc. COMPLICATIONS: None. SUMMARY: The patient is a very pleasant 43-year-old female with complaints of severe back pain radiating to left lower extremity with left lower extremity weakness and loss of sensation with MRI findings consistent with degenerative disk disease with L5-S1 with grade 1 spondylolisthesis and bilateral neural foraminal stenosis. The patient failed conservative treatment modalities and she was offered the option of surgical intervention in the form of left L5-S1 MIS TLIF. After explaining the expectations, limitations, and possible complications of the procedure to the patient and her mother with complications including, but not limited to bleeding, infection, risk of injury to adjacent structures, coma, paralysis, , need for additional procedures, anesthesia risks, stroke, blindness, cancer, instability, hardware failure, adjacent level disease, pseudoarthrosis, spinal fluid leak, loss of bladder or bowel control, hematoma formation, injury to abdominal contents, pulmonary embolism, anesthesia risk. The patient was agreeable to proceed with surgery and informed consent was obtained. The patient understood that her condition may not improve and in fact may get worse after surgery and that she may need to have additional procedures in the future. She also understood that operative plan may be modified according to intraoperative findings and conditions and that also she may require prolonged ICU stay, prolonged hospitalization, dependence on the ventilator, need for tracheostomy or gastrostomy, anesthesia risk, prolonged rehabilitation. The patient also understood that case may be abandoned or done in more than 1 stages. DESCRIPTION OF PROCEDURE: The patient was brought to the operating room and was placed under general anesthesia by the anesthesia team. She was carefully positioned prone on the Augusto table and all bony prominences were meticulously padded. Her skin was prepped and draped in the standard fashion. After appropriate surgical pause and patient identification, a small incision over the right iliac crest was made in the skin with #10 surgical blade. Corex needle was inserted and was used to harvest iliac crest bone graft, which was saved for the arthrodesis part of the procedure. The navigation star pin was then inserted and intraoperative O-arm imaging was obtained and the patient's data was transferred to the navigation platform with the use of stereotactic navigation. The trajectories of the pedicle screws at L5 and S1 were marked in the skin as well as trajectory of the METRx retractor. Two separate paramedian incisions were performed after being sedated with local anesthetic and a #10 surgical blade was used to incise the skin. The incision was carried down through subcutaneous tissue with Bovie cautery. Under stereotactic navigation, a ngmoco high torque drill with navigator drill guide was used to perform a ___ ____ and create a airplane pilot holes for the insertion of the pedicle screws. All navigated tap was then used to cannulate the pedicles and ATS [employer] pedicle screws were inserted at L5 and S1 bilaterally. Then attention was brought to insert the METRx tubular retractor over series of dilators with assistance of navigation. After the tubular retractor was secured in place, the microscope was brought into the field and the left azar lamina of L5 was exposed as well as the left L5-S1 facet as well as the partial of the pars defect. High-speed drill was used to fashion laminectomy while the locally harvested bone graft of the section of the medial facet was saved and to be used for the arthrodesis part of the procedure. High-speed drill and Kerrison punches were used to complete the hemilaminectomy, the medial facetectomy, and exposure of the left S1 nerve root and the medial and posterior part of the thecal sac. Then nerve root retractor was introduced in the thecal sac and the nerve root was gently removed medially and a standard diskectomy with preparation of the disk space was performed after incising the annulus fibrosus with #15 surgical blade. Osteotome was used under the disk space at the beginning and then a series of dilators were used. The disk space was found to be quite ankylosed and after that, preparation of the endplates was performed, the Elevate expandable PEEK interbody cage from [employer] was inserted after being treated with locally harvested bone graft as well as iliac crest bone graft and DBX. Prior to insertion of the cage, the endplates were carefully prepared with curettes and a mixture of the autologous and DBX bone graft was inserted into the disk space. After copious irrigation and confirmation of meticulous hemostasis and meticulous inspection, the tubular retractor was then gently removed and the fascia was closed with 0 interrupted Vicryl sutures. Then sizing of the abigail length was performed and two cobalt chrome 35 mm rods were inserted through the same incisions. This was secured in place with screw head caps, and a second intraoperative O-arm imaging was obtained and confirmed excellent placement of all hardware. After securing the screw head caps and removal of abigail inserters, all wounds were copiously irrigated and after confirmation of meticulous hemostasis and meticulous inspection, the wounds were closed by layers with 0 interrupted Vicryl suture to approximate the dorsal fascia defects and 2-0 inverted interrupted to approximate the subcutaneous tissue. Similarly, the wound for the right iliac crest bone graft was also closed and skin was covered with Dermabond and sterile sponges. At the end of the procedure, all counts were reported to be correct. The patient remained hemodynamically stable throughout the case and intraoperative electrophysiological monitoring remained stable throughout the case. The case was done with assistance of surgical PA because of the complexity of the case. The patient was then turned supine, was extubated and was transferred to Recovery in excellent condition. [id number]/CPS #: [id number] NICOL
--- NOTE | 2019-03-14 15:47 | CONSULT ---
Consult Consult: INPATIENT PAIN CONSULTATION Yoselyn Driscoll is a 43 year old female. She has had back pain for 13 years, at least. She had seen Dr. Baker in 2017, and she had an MRI of her lumbar spine showing a spondylolisthesis at L5/S1. She had seen Dr. Burrows in the past. She had seen Dr. Su and had LESIs but these did not help. She had been tried on various pain medications. She was on Methadone. She fell on Methadone. She had insomnia with oxycodone. She was finally tried on Suboxone and this worked the best for her. She was on 8/ twice a day. She has no history of addiction, she states. She saw me March 02 for post-op pain management. I advised her to stop Suboxine last Wednesday. She says she did that. Today, she was admitted and underwent a L5/S1 MIS TLIF with PEEK interbody cage and a right ICBG. She had bilateral L5/S1 pedicle screws. I am asked to see her for pain management. PAST MEDICAL HISTORY: Migraines, depression, Nabor's Thyroiditis with associated hypothyroidism, Santana's Palsy in 2013 Allergies Allergy/AdvReac Type Severity Reaction Status Date / Time diphenhydramine Allergy Severe Shortness Verified 03/14/19 07:02 [From Benadryl Allergy/Cold] of Breath fish oil Allergy Severe Vomiting Verified 03/14/19 07:02 Iodinated Contrast- Oral and Allergy Severe Difficulty Verified 03/14/19 07:02 IV Dye Breathing lorazepam [From Ativan] Allergy Intermediate Vomiting Verified 03/14/19 07:02 adhesive Allergy blister Verified 03/14/19 07:02 aspartame Allergy anaphylactic Verified 03/14/19 07:02 shock bismuth subsalicylate Allergy Rash And Verified 03/14/19 07:02 [From Pepto-Bismol] Itching codeine Allergy Altered Verified 03/14/19 07:02 Mental Status povidone-iodine Allergy Hives, Verified 03/14/19 07:02 [From Betadine] swelling soap [From Betadine] Allergy Hives, Verified 03/14/19 07:02 swelling sorbitol Allergy Anaphylatic Verified 03/14/19 07:02 Shock famotidine [From Pepcid] AdvReac Nausea And Verified 03/14/19 07:02 Vomiting ADHESIVE TAPE Allergy Severe Blisters Uncoded 03/14/19 07:02 ANTIHISTAMINES Allergy Severe Hives Uncoded 03/14/19 07:02 IODINE Allergy Severe Hives Uncoded 03/14/19 07:02 SHELLFISH Allergy Severe Anaphylatic Uncoded 03/14/19 07:02 Shock Current Medications Acetaminophen (Tylenol Tab*) 650 mg PO Q4H PRN PRN Reason: PAIN Hydrocodone Bitart/Acetaminophen ([place]ton 5-325 Tab*) 1 tab PO ONCE PRN PRN Reason: PAIN - MODERATE Baclofen (Lioresal Tab*) 20 mg PO TID [facility] Bupropion HCl (Wellbutrin Xl *) 150 mg PO QAM [facility] Dexamethasone Sodium Phosphate (Decadron Iv*) 8 mg IV SLOW PU ONCE ONE Stop: 03/14/19 06:01 Last Admin: 03/14/19 07:14 Dose: 8 mg Escitalopram Oxalate (Lexapro *) 20 mg PO QAM [facility] Fentanyl Citrate (Fentanyl*) 50 mcg IV Q5M PRN PRN Reason: PAIN - MODERATE Furosemide (Lasix Tab*) 20 mg PO QAM [facility] Hydromorphone HCl (Dilaudid Inj1s*) 0.5 mg IV Q10M PRN PRN Reason: PAIN - SEVERE Last Admin: 03/14/19 13:48 Dose: 0.5 mg Lactated Ringer's (Lactated Ringers 1000 Ml Bag*) 1,000 mls @ 125 mls/hr IV PER RATE [facility] Last Admin: 03/14/19 07:12 Dose: 125 mls/hr Lactated Ringer's (Lactated Ringers 1000 Ml Bag*) 1,000 mls @ 75 mls/hr IV .per rate [facility] Levothyroxine Sodium (Synthroid Tab*) 150 mcg PO QAM [facility] Lidocaine/Sodium Bicarbonate (Buffered Lidocaine 1% Syrin*) 0.2 ml INTRADERM ONCE ONE Stop: 03/13/19 10:19 Last Admin: 03/14/19 07:12 Dose: Not Given Naloxone HCl (Narcan*) 0.08 mg IV Q2M PRN PRN Reason: severe induced resp depression Non-Formulary Medication (Levothyroxine Tab*) 25 mcg PO DAILY [facility] Non-Formulary Medication (Topiramate [Topiramate]) 50 mg PO BID [facility] Oxycodone/Acetaminophen (Percocet 5/325 Tab*) 1 tab PO ONCE PRN PRN Reason: PAIN - MODERATE Last Admin: 03/14/19 13:55 Dose: 1 tab Varenicline (Chantix (Nf)) 1 mg PO BID [facility]; Protocol SOCIAL HISTORY: No alcohol, quit smoking Vital Signs Temp Pulse Resp BP Pulse Ox 97.9 F 96 14 129/74 100 03/14/19 13:28 03/14/19 14:30 03/14/19 15:09 03/14/19 14:30 03/14/19 14:30 EXAM: HEENT: EOMI LUNGS: CLear bilaterally HEART: Regular rhythm ABDOMEN: Soft +BS BACK: Two small bandaged incisions NEUROLOGIC: A&O, dorsiflexion improved in left foot ASSESSMENT: 1. L5/S1 MIS TLIF with PEEK interbody cage, Right ICBG 2. Spondylolisthesis lumbar spine PLAN: I will stop her hydrocodone/APAP. Will write for Oxycodone 15 mg PO Q4 PRN. May need OxyContin 20 mg Q 12 as well. I will add bowel medications. I will follow
--- NOTE | 2019-03-14 16:04 | CONS ---
CC: FIDELINA Zaman, [facility] CONSULTATION REPORT: DATE OF CONSULT: 03/14/19 TIME OF EVALUATION: 02:30 p.m. PRIMARY CARE PROVIDER: FIDELINA Zaman, [facility]. REQUESTING PHYSICIAN: Dr. Pearson. HISTORY OF PRESENT ILLNESS: Mrs. Driscoll is a 43-year-old lady with a past medical history of migraine, hypothyroidism, depression, chronic back pain with lumbar spine DJD, who was admitted for elective L 5-S1 arthrodesis. The patient presented to Dr. Pearson' office with complaints of back pain assoc iated with left lower extremity numbness. She underwent her surgical procedure today and Neurosurger y requested a consultation for management of her comorbidities. The patient was evaluated in the PACU and she was in very good spirits, stating that her pain was alr kian much improved and she could feel her left foot after being numb for so many years. She denied n ausea, vomiting, or other complaints at this time. PAST MEDICAL HISTORY: 1. Chronic low back pain. 2. Migraine. 3. Hypothyroidism. 4. Depression. 5. Nephrolithiasis. PAST SURGICAL HISTORY: Status post appendectomy. MEDICATIONS: 1. Baclofen 20 mg p.o. t.i.d. 2. Suboxone 8/2 mg half a tablet sublingual 4 times a day. 3. Bupropion XL 150 mg p.o. q.a.m. 4. EpiPen as needed for allergic reactions. 5. Lexapro 10 mg p.o. q.a.m. 6. Furosemide 20 mg p.o. q.a.m. 7. Ibuprofen 800 mg p.o. t.i.d. as needed for pain. 8. Levothyroxine 175 mcg p.o. daily. 9. Sudafed 120 mg p.o. b.i.d. as needed for congestion. 10. Tizanidine 4 mg p.o. t.i.d. 12. Topiramate 50 mg p.o. b.i.d. 13. Varenicline 1 mg p.o. b.i.d. ALLERGIES: To BENADRYL, FISH OIL, IODINE, LORAZEPAM, ASPARTAME, PEPTO-BISMOL, CODEINE, BETADINE, SOR BITOL, FAMOTIDINE, ADHESIVE TAPE, SHELLFISH. FAMILY HISTORY: Sister of cervical cancer. Multiple family members have hypothyroidism. Anoth er sister has rheumatoid arthritis. Father had polycystic kidney disease. She has 4 children. SOCIAL HISTORY: The patient has a history of tobacco abuse. No alcohol or reported drug abuse. 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 REVIEW OF SYSTEMS: A 14-point review of systems was performed and all the pertinent negative and pos itive findings are in the HPI. PHYSICAL EXAM: Vital Signs: Temperature 97.9, heart rate is 96, respiratory rate is 18, oxygen satu ration is 100% on 3 L nasal cannula, blood pressure is 129/74. General: The patient is a pleasant yo delaney lady, sitting up in bed, in no acute distress. CVS: Normal S1, S2. Regular rate and rhythm. C hest: Breath sounds present bilaterally with no added sounds. Abdomen is soft. Bowel sounds presen t. Extremities: No edema. Neuro: She is alert and oriented x3. Able to move all 4 extremities. ASSESSMENT AND PLAN: Mrs. Driscoll is a 43-year-old lady with a past medical history of hypothyroidism, migraines, depression, chronic back pain, admitted for elective L5-S1 fusion. Hospitalist service wa s consulted to manage comorbidities. When the consult was requested, it was stated that the patient has a history of hypertension, but the patient is adamant that she was never diagnosed with blood pre ssure issues. We will continue to manage her hypothyroidism. She will be continued on bupropion for her depression and pain management will be according to neurosurgery recommendations. The hospitalist service will continue to follow the patient with you. TIME SPENT: Approximately 40 m inutes was spent with the patient and mother interview, medical records review, physical examination to complete this consultation, more than half of this time was spent [id number] with the patient in coordination of care. [id number]/[facility] #: [id number]
[2019-03-14] MEDS: Baclofen TAB* 20 MG PO SCH ×2 (16:09→21:21)
[2019-03-14] MEDS: CMCS: Varenicline (NF) 1 MG TAB PO SCH (16:56)
[2019-03-14] MEDS: Topiramate TAB(*) 25 MG PO SCH (16:56)
[2019-03-14] MEDS: oxyCODONE TAB* 5 MG TAB PO PRN ×2 (17:03→21:21)
[2019-03-14] MEDS: Docusate CAP* 100 MG PO SCH (21:21)
[2019-03-15] MEDS: oxyCODONE TAB* 5 MG TAB PO PRN ×4 (02:16→14:36)
--- NOTE | 2019-03-15 07:11 | PN ---
Progress Note - Progress Note Date of Service: 03/15/19 SOAP: Subjective: 43 y/o female s/p TLIF at L5/S1 POD #1, reports improvement with LE motor strength and improved sensation in her feet. Overnight she reports having pain from the procedure. She was place on Oxycodone 15 mg by pain management, which did not control her pain well, Oxycontin was added and patient was given a short Dilaudid that give her some relief and allowed to rest briefly. She reports getting and ambulating to the bathroom, has tolerated orals with out issue. Objective: Vital Signs - 12 hr Temp Pulse Resp BP Pulse Ox 03/15/19 06:14 16 03/15/19 04:31 18 03/15/19 04:27 18 03/15/19 03:18 98.6 F 75 16 100/55 100 03/15/19 02:16 18 03/14/19 23:11 98.2 F 76 16 102/50 100 03/14/19 21:21 18 03/14/19 19:43 98.4 F 70 14 109/70 99 Physical Exam: General: patient laying in bed on side, has some mild discomfort Neuro: GCS 15, A&O x 3 CN II - XII grossly intact, UPE motor strength 5/5 bilaterally, LE motor strength intact 5/5, sensation intact with light touch. Derm wound C/D/I. Assessment: 43 y/o female post TLIF at L5/S1 her having procedure pain, current pain med regimen not controlling it well. Patient was previously on Suboxone for pain management. She is currently being followed by pain management. She otherwise has been stable overnight. Plan: Follow pain management recommendation for pain medications. Patient out of bed to chair Saline Lock IV Walk with PT/OT Discharge planning.
[2019-03-15] MEDS: CMCS: Varenicline (NF) 1 MG TAB PO SCH ×2 (08:47→16:34)
[2019-03-15] MEDS: Topiramate TAB(*) 25 MG PO SCH ×2 (08:47→16:34)
[2019-03-15] MEDS: Baclofen TAB* 20 MG PO SCH ×2 (08:47→14:36)
[2019-03-15] MEDS: Docusate CAP* 100 MG PO SCH (08:51)
--- NOTE | 2019-03-15 11:45 | PN ---
Subjective Date of Service: 03/15/19 Interval History: Pt c/o LBP that radiates to b/l hips. She notes she has feeling in L leg, which has been numb for approximately 6 years. She is urinating well, has not had a BM since Wednesday; denies bowel incontinence. Notes she occasionally has urinary incontinence that is chronic, but none recently. She denies saddle anaesthesia. She has been sitting up, up to BR, but has not worked with PT yet today. Denies CP, SOB, fever/chills, abd pain, n/v/d/c, pain in extremities. Objective Active Medications: Acetaminophen (Tylenol Tab*) 650 mg PO Q4H PRN Baclofen (Lioresal Tab*) 20 mg PO TID [facility] Bupropion HCl (Wellbutrin Xl *) 150 mg PO QAM [facility] Docusate Sodium (Colace Cap*) 100 mg PO BID [facility] Escitalopram Oxalate (Lexapro *) 20 mg PO QAM [facility] Furosemide (Lasix Tab*) 20 mg PO QAM [facility] Lactated Ringer's (Lactated Ringers 1000 Ml Bag*) 1,000 mls @ 75 mls/hr IV .per rate [facility] Levothyroxine Sodium (Synthroid Tab*) 175 mcg PO QAM@0600 [facility] Oxycodone HCl (Roxycodone Tab*) 15 mg PO Q4H PRN Oxycodone HCl (Roxycodone Tab*) 10 mg PO Q4H PRN Oxycodone HCl (Oxycontin(*)) 20 mg PO Q12HR [facility] Senna (Senokot Tab*) 2 tab PO BEDTIME PRN Topiramate (Topamax(*)) 50 mg PO 0800,1600 [facility] Varenicline (Chantix (Nf)) 1 mg PO 0800,1600 [facility]; Protocol Vital Signs: Temp Pulse Resp BP Pulse Ox 98.6 F 73 16 98/56 100 03/15/19 07:27 03/15/19 07:27 03/15/19 10:42 03/15/19 07:27 03/15/19 07:27 Oxygen Devices in Use Now: None Appearance: Pt is laying flat on back in bed. Back brace in place. Pt grimacing in pain on occasion; able to move, but has some difficulty. No acute distress. Eyes: No Scleral Icterus, PERRLA Ears/Nose/Mouth/Throat: NL Teeth, Lips, Gums, Clear Oropharnyx, Mucous Membranes Moist Neck: NL Appearance and Movements; NL JVP, Trachea Midline Respiratory: Symmetrical Chest Expansion and Respiratory Effort, Clear to Auscultation Cardiovascular: NL Sounds; No Murmurs; No JVD, RRR, No Edema Abdominal: NL Sounds; No Tenderness; No Distention, No Hepatosplenomegaly Extremities: No Edema, No Clubbing, Cyanosis, - - Radial, pedal pulses palpable. Neurological: Alert and Oriented x 3, NL Sensation, - - Brace in place. L paraspinal dressing CDI. Able to move all extremities Assess/Plan/Problems-Billing Assessment: 43yof PMHx migraines, hypothyroidism, depression, chronic low back pain, nephrolithiasis, LE edema presents with back pain and was admitted for TLIF L5/ S1. - Patient Problems (1) Fusion of lumbar spine Comment: -Management per neurosurg team -Walk with PT; OOB to chair (2) Chronic pain Comment: -Management per Dr. Spence -Oxycontin 20 q12h -Oxycodone 15 q4h prn -Bowel regimen (3) Lower extremity edema Comment: -No LE edema currently -Home medication Lasix 20 PO given today -Will hold tomorrow, due to low-normal BP (4) Hypothyroidism Comment: -Continue levothyroxine (5) Depression Comment: -Controlled -Continue wellbutrin, lexapro (6) Tobacco abuse Comment: -Continue chantix (7) DVT prophylaxis Comment: -Per neurosurgery: TEDS, SCDs (8) Full code status Status and Disposition: Observation. Discharge per Neurosurgery.
[2019-03-15 12:02] VITALS: BP 102/59
--- NOTE | 2019-03-15 12:14 | PN ---
Progress Note - Progress Note Date of Service: 03/15/19 Note: INPATIENT PAIN-PROGRESS I visited Yoselyn and observed her ambulating in the hallway. She is able to toilet herself and don her back brace. She tells me the Oxycodone does not work. She thinks she may be discharged. IV dilaudid helped her nriefly Current Medications Acetaminophen (Tylenol Tab*) 650 mg PO Q4H PRN PRN Reason: PAIN Baclofen (Lioresal Tab*) 20 mg PO TID [facility] Last Admin: 03/15/19 08:47 Dose: 20 mg Bupropion HCl (Wellbutrin Xl *) 150 mg PO QAM [facility] Last Admin: 03/15/19 08:47 Dose: 150 mg Docusate Sodium (Colace Cap*) 100 mg PO BID [facility] Last Admin: 03/15/19 08:51 Dose: Not Given Escitalopram Oxalate (Lexapro *) 20 mg PO QAM [facility] Last Admin: 03/15/19 08:47 Dose: 20 mg Lactated Ringer's (Lactated Ringers 1000 Ml Bag*) 1,000 mls @ 75 mls/hr IV .per rate [facility] Last Admin: 03/15/19 03:47 Dose: 75 mls/hr Levothyroxine Sodium (Synthroid Tab*) 175 mcg PO QAM@0600 [facility] Last Admin: 03/15/19 06:15 Dose: 175 mcg Oxycodone HCl (Roxycodone Tab*) 15 mg PO Q4H PRN PRN Reason: PAIN - SEVERE Last Admin: 03/15/19 10:35 Dose: 15 mg Oxycodone HCl (Roxycodone Tab*) 10 mg PO Q4H PRN PRN Reason: PAIN - MODERATE TO SEVERE Oxycodone HCl (Oxycontin(*)) 20 mg PO Q12HR [facility] Last Admin: 03/15/19 08:46 Dose: 20 mg Senna (Senokot Tab*) 2 tab PO BEDTIME PRN PRN Reason: CONSTIPATION Topiramate (Topamax(*)) 50 mg PO 0800,1600 [facility] Last Admin: 03/15/19 08:47 Dose: 50 mg Varenicline (Chantix (Nf)) 1 mg PO 0800,1600 [facility]; Protocol Last Admin: 03/15/19 08:47 Dose: 1 mg Vital Signs Temp Pulse Resp BP Pulse Ox 98.1 F 83 16 102/59 100 03/15/19 12:01 03/15/19 12:01 03/15/19 12:03/15/19 12:03/15/19 12:01 EXAM: BACK: two dressings c/d/i NEUROLOGIC: Motor 5/5 in LEs, dorsiflexion 4/5 in Able to ambulate with a rolling walker and her back brace. ASSESSMENT: 1. L5/S1 MIS TLIF with PEEK interbody cage, right ICBG 2. Spondylolisthesis PLAN: After discussing with the patient, she wishes to return to Suboxone 8/2 after discharge. She should stop the OxyContin as it is not helping, restart Suboxone 8/2 in am after letting oxy get out of system
[~2019-03-15 17:45] MED LIST: Acetaminophen TAB* 325 MG PO PRN; Bacitracin INJECTION* 50,000 UNITS ONE; BuPROPion XL* 150 MG TAB.XL PO SCH; Buffered Lidocaine 1% SYRIN* 1 ML/SYRINGE INTRADERM ONE; Dexamethasone IV* 4 MG/ML 1 ML (4 MG) IV SLOW PU ONE; Dexamethasone IV* 4 MG/ML 1 ML (4 MG) ONE; EPHEDrine (Pressors)* 50 MG/ML VIAL ONE; Escitalopram * 20 MG TABLET PO SCH; Furosemide TAB* 20 MG PO SCH; HYDROcodone/ACETAMIN 5-325 MG* 1 TAB PO PRN; HYDROmorphone INJ1* 1 MG/ML SYRINGE IV SLOW PU ONE; HYDROmorphone INJ1* 1 MG/ML SYRINGE ONE; KETAMINE HCL* 50 MG/ML 10 ML VIAL ONE; Ketorolac INJ* 30 MG/ML 1 ML VIAL ONE; LEVOTHYROXINE 25 MCG PO SCH; Lactated Ringers 1000 ML Bag* 1,000 ML IV SCH; Levothyroxine TAB* 175 MCG TAB PO SCH; Lidocaine 1% w EPI 1:200,000* 30 ML VIAL ONE; Lidocaine 2% PF * 5 ML VIAL ONE; Midazolam* 1 MG/ML 5 ML VIAL (5 MG) ONE; Naloxone* 0.4 MG/ML 1 ML VIAL IV PRN; Ondansetron INJ* 2 MG/ML VIAL ONE; Propofol* 10 MG/ML 20 ML BTL ONE; Remifentanil* 2 MG VIAL ONE; Rocuronium* 10 MG/ML VIAL ONE; Senna TAB PO PRN; Succinylcholine* 20 MG/ML 10 ML VIAL ONE; Thrombin 5,000 UNITS* 1 APPLIC KIT - topical use - TOPICAL ONE; ceFAZolin 2 GM in NS PREMIX(*) 2 GM/100 ML BAG IVPB ONE; fentaNYL* 50 MCG/ML 2 ML VIAL (100 MCG VIAL) IV PRN; fentaNYL* 50 MCG/ML 2 ML VIAL (100 MCG VIAL) ONE; fentaNYL* 50 MCG/ML 5 ML VIAL (250 MCG VIAL) ONE; oxyCODONE SR TAB(*) 20 MG TAB.SR PO SCH; oxyCODONE TAB* 5 MG TAB PO PRN; oxyCODONE/Acetamin 5/325 MG* TAB ONE
--- NOTE | 2019-03-20 12:40 | DS ---
DISCHARGE SUMMARY: DATE OF ADMISSION: 03/14/19 DATE OF DISCHARGE: 03/15/19 ATTENDING PHYSICIAN: Dr. Pearson.* (DICTATED BY FIDELINA WHITNEY) DIAGNOSIS ON DISCHARGE: Lumbar spondylolisthesis. DISPOSITION UPON DISCHARGE: Good. PLACE OF DISCHARGE: Home. HOSPITAL COURSE: This is a very pleasant 43-year-old female with complaints of severe back pain radiating to the left lower extremity with left lower extremity weakness and loss of sensation, with MRI findings consistent with degenerative disk disease at L5-S1 with a grade I spondylolisthesis and bilateral foraminal stenosis. This patient failed conservative treatment modalities and she was offered the option of surgical intervention in the form of a left L5-S1 MIS TLIF. After explaining the expectations, limitations, possibilities of complications, and other procedures to the patient and her mother, the patient was consented for procedure. The patient tolerated the procedure really well, was transferred after the surgery to short term unit, which is for a 24-hour period. The patient did have some postoperative pain. She is a pain management patient who currently takes Suboxone. So, Dr. Solares was consulted to help with pain management. The patient did well during observation and was able to ambulate without issue, also voided and tolerated food orally without issue. Recommendation was made for patient to be discharged the following day, on 03/15. DISCHARGE INSTRUCTIONS: At the time of discharge, the patient was given instructions, which included no heavy lifting, bending or driving. She needs to wear the brace, that she was previously fitted for, when upright. Follow up with primary care in 1 week, follow up with Pain Management within 1 week, and also follow up with neurosurgery clinic in a week for wound check. It has been a pleasure taking care of this patient. FIDELINA WHITNEY [id number]/[facility] #: [id number] MTDJuana
== END | disposition home or self-care (01) ==
LOC: AA 03-14 05:54 → INTOOBSV 03-14 05:54 → SSU 03-14 15:10
PROVIDERS: ADMIT Neurological Surgery; ATTEND Neurological Surgery
DX: M43.17 Spondylolisthesis, lumbosacral region (principal); M51.36 Other intervertebral disc degeneration, lumbar region; F17.210 Nicotine dependence, cigarettes, uncomplicated; Z87.442 Personal history of urinary calculi; M54.5 Low back pain; Z79.891 Long term (current) use of opiate analgesic; F33.9 Major depressive disorder, recurrent, unspecified; E03.9 Hypothyroidism, unspecified; R60.0 Localized edema
CPT/HCPCS: 72100; 76000; 96374; 96375; 96376; A9270-GY; C1713; C9359; G0378; G8978-GP-CI; G8979-GP-CI; G8980-GP-CI; G8987-GO-CI; G8988-GO-CI; G8989-GO-CI; J0330; J0690; J1100; J1170; J1885; J2001; J2250; J2405; J2704; J3010

== ENCOUNTER 2019-10-22 14:32 | Emergency (ER) | payer MEDICARE, MEDICAID ==
[2019-10-22] MEDS ORDERED: Ondansetron INJ* 2 MG/ML VIAL ONE (14:36)
[2019-10-22] MEDS ORDERED: Ondansetron INJ* 2 MG/ML VIAL IV ONE (14:36)
[2019-10-22] MEDS ORDERED: HYDROmorphone INJ1* 1 MG/ML SYRINGE ONE (14:36)
[2019-10-22] MEDS ORDERED: HYDROmorphone INJ1* 1 MG/ML SYRINGE IV SLOW PU ONE (14:38)
[2019-10-22] MEDS: HYDROmorphone INJ* 0.5 MG/0.5 ML SYRINGE IV ONE ×2 (14:39→14:52)
[2019-10-22] MEDS ORDERED: Lidocaine 1% INJ* 10 MG/ML 30 ML SDV INJ ONE (14:42)
--- NOTE | 2019-10-22 14:43 | ED ---
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 Pain was immediate and extremely severe. Painful to touch and movement. Patient is unable to ambulate. Fentanyl does not ease the pain. She reports numbness of her foot and dec ROM. Patient smokes tobacco. History of back pain, for which she takes pain medications for. Back surgery last year. - History of Current Complaint Stated Complaint: L ANKLE INJ PER EMS Hx Obtained From: Patient Hx Last Menstrual Period: 11/03/18 Mechanism Of Injury: Fall From A Standing Position Onset of Pain: Immediate Onset/Duration: Minutes Severity Initially: Severe Severity Currently: Severe Pain Intensity: 10 Pain Scale Used: 0-10 Numeric Timing: Constant Location: Is Discrete @ - left ankle Character Of Pain: Sharp Associated Signs And Symptoms: Positive: Swelling, Redness, Other - dislocation Aggravating Factor(s): Standing, Ambulation, Movement, Weight Bearing, Other - touch Alleviating Factor(s): Rest Able to Bear Weight: No - Allergies/Home Medications Allergies/Adverse Reactions: Allergies Allergy/AdvReac Type Severity Reaction Status Date / Time Adhesive Tape Allergy Severe Blisters Verified 10/23/19 15:41 aspartame Allergy Severe anaphylactic Verified 10/23/19 15:41 shock codeine Allergy Severe Altered Verified 10/23/19 15:41 Mental Status diphenhydramine Allergy Severe Shortness Verified 10/23/19 15:41 [From Benadryl Allergy/Cold] of Breath Fish Containing Products Allergy Severe Anaphylatic Verified 10/23/19 15:41 Shock Iodinated Contrast Media Allergy Severe Difficulty Verified 10/23/19 15:41 [Iodinated Contrast- Oral Breathing and IV Dye] iodine Allergy Severe Hives Verified 10/23/19 15:41 shellfish derived Allergy Severe Anaphylatic Verified 10/23/19 15:41 Shock sorbitol Allergy Severe Anaphylatic Verified 10/23/19 15:41 Shock lorazepam [From Ativan] Allergy Intermediate Vomiting Verified 10/23/19 15:41 adhesive Allergy blister Verified 10/23/19 15:41 bismuth subsalicylate Allergy Rash And Verified 10/23/19 15:41 [From Pepto-Bismol] Itching povidone-iodine Allergy Hives, Verified 10/23/19 15:41 [From Betadine] swelling soap [From Betadine] Allergy Hives, Verified 10/23/19 15:41 swelling famotidine [From Pepcid] AdvReac Nausea And Verified 10/23/19 15:41 Vomiting ANTIHISTAMINES Allergy Severe Hives Uncoded 10/23/19 15:41 PMH/Surg Hx/FS Hx/Imm Hx Endocrine/Hematology History: Reports: Hx Thyroid Disease - MYRA'S, Hx Anemia - HX OF IN THE PAST Denies: Hx Anticoagulant Therapy, Hx Bone Marrow Disease, Hx Diabetes, Hx Sickle Cell Disease Cardiovascular History: Denies: Hx Hypertension, Hx Pacemaker/ICD, Other Cardiovascular Problems/ Disorders Respiratory History: Reports: Hx 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 NEVILLE FOR Denies: Hx Dialysis, Hx Renal Disease Musculoskeletal History: Reports: Hx Arthritis - HIPS, KNEES, BACK, Hx Back Problems - Chronic Sensory History: Denies: Hx Contacts or Glasses, Hx Hearing Aid Opthamlomology History: Denies: Hx Contacts or Glasses Neurological History: Reports: Hx Headaches - HX OF, Hx Migraine - HX OF- ROUTINE MEDICATION FOR, Other Neuro Impairments/Disorders - MULTIPLE BACK INJURIES OVER THE YEARS DUE TO STRENOUS JOB. Psychiatric History: Reports: Hx Anxiety - ON MEDICATION FOR, Hx Depression - ON MEDICATION FOR Denies: Hx Panic Disorder - Surgical History Surgery Procedure, Year, and Place: LOW BACK 04/10/19 METAL PLATE/SCREWS - SOFAMORDANEK SPINAL SYSTEM - MRI CONDITIONAL 5 - SCAN NORMAL MODE @ 1.5T. 1988 L 4TH TOE [facility]; 1997 L THUMB [facility] ( HARDWARE REMOVED); 1998 L HAND DEEPA; 2005 APPENDECTOMY [facility]. 2008 CHOLECYSTECTOMY [facility] [place]; 2010 STENT LITHO [facility] [place]; 2010 ONE STENT AND LITHO [facility]. 2012 LEEP [facility]; 2017 LEFT HIP ABCESS; Hx Anesthesia Reactions: No - Family History Known Family History: Positive: Other - migraines, breast/uterine CA - Social History Alcohol Use: None Substance Use Type: Reports: Excessive Caffeine Substance Use Comment - Amount & Last Used: reports drinks one pot of coffee per day/DID COMSUME DESSERTS WITH MARIJUAN Smoking Status (MU): Former Smoker Type: Cigarettes Amount Used/How Often: UP TO 1/2 PPD X 25 YEARS Have You Smoked in the Last Year: Yes Review of Systems Negative: Fever Positive: Arthralgia - Left ankle, Decreased ROM All Other Systems Reviewed And Are Negative: Yes Physical Exam - Summary Physical Exam Summary: Constitutional: Moderate Distress 2/2 pain Skin: Warm, Dry HENT: Normocephalic; Atraumatic Eyes: Conjunctiva normal Neck: Musculoskeletal ROM normal neck. (-) JVD, (-) Stridor, (-) Nuchal rigidity Cardio: Rhythm regular, rate tachycardic, Heart sounds normal; Intact distal pulses; Radial pulses are 2+ and symmetric. (-) Murmur. Pulmonary/Chest wall: Effort normal. (-) Respiratory distress, (-) Wheezes, (-) Rales Abd: Soft, (-) tenderness, (-) Distension, (-) Guarding, (-) Rebound Musculoskeletal: (-) Edema. Obvious deformity of left ankle. Skin tenting of the medial malleolus. Faint Doppler DP pulse. Coolness of the right foot and pallor. No femur/knee/prox tib tenderness. No foot tenderness. Lymph: (-) Cervical adenopathy Neuro: Alert, Oriented x3 Psych: Mood and affect Normal Triage Information Reviewed: Yes Vital Signs Reviewed: Yes Procedures - Sedation Patient Received Moderate/Deep Sedation with Procedure: Yes Are You The Provider Who Administered The Sedation: Yes Name of Provider Whom Sedated Patient: Joshua Magallon T - Procedural Sedation/Analgesia Sedation Course: RT Present, Emergency Airway Equipment Available, Informed Consent Obtained, Time Out Completed, End-tidal Capnography Utilized Sedation Course Details: Ketamine Adverse Reactions Experienced by Patient: None Mallampati Classification: Class I ASA Classification: Class II: Mild Systemic Disease Pre-Procedural Heart: S1 and S2 Pre-Procedural Lungs: Clear Auscultation Comment/Plan of Care: Ketamine Provider Procedure Attestation: With My Signature Below, I Attest to have Personally Reviewed and Agree with the Pre-Sedation History and Pre-Service Assessment Update Cleared for Moderate Sedation: Yes Pre-Procedural Diagnosis: ankle dislocation Post-Procedural Diagnosis: ankle dislocation Procedure: reduction Estimated Blood Loss: None Specimen(s): None Findings: None Implants/Tubes/Drains Placed: None - Joint Reduction Left Joint Reduction Site: ankle (L) Conscious Sedation: Yes Reduction Attempts: 3 - Attempted x2 w successful lateral reduction however still w persistent posterior displacement. 3rd try was with Dr. Tristan. It was a success. Pre-Procedure NV Exam: Yes Post Joint Reduction Film: joint reduced Diagnostics - Laboratory Lab Statement: Any lab studies that have been ordered have been reviewed, and results considered in the medical decision making process. - Radiology Ankle XR (Pre-Reduction) Radiology Interpretation Completed By: Radiologist Summary of Radiographic Findings: IMPRESSION: Tibiotalar dislocation. Bimalleolar fractures suspected (evaluation complicated by distorted anatomy). Ankle XR 2 Radiology Interpretation Completed By: Radiologist Summary of Radiographic Findings: IMPRESSION: Dislocated ankle with a trimalleolar fracture pattern. An ED physician has reviewed this scan. Ankle XR 3 Radiology Interpretation Completed By: Radiologist Summary of Radiographic Findings: IMPRESSION: Overlying cast obscures fine bony detail. The tibiotalar joint is similarly dislocated. There is a trimalleolar fracture pattern. An ED physician has reviewed this exam. Lower Extremity XR Radiology Interpretation Completed By: Radiologist Summary of Radiographic Findings: FINDINGS/IMPRESSION: Overlying cast obscures fine bony detail. The tibiotalar joint is similarly dislocated. There is a trimalleolar fracture pattern. An ED physican has reviewed this scan. Ankle XR 4 Radiology Interpretation Completed By: Radiologist Summary of Radiographic Findings: IMPRESSION: An overlying cast obscures fine bony detail. Near-anatomic alignment is maintained status post reduction. There is a trimalleolar fracture pattern. An ED physician has reviewed this report. Annkle XR (Pre-Reduction) Radiology Interpretation Completed By: Radiologist Summary of Radiographic Findings: IMPRESSION: Tibiotalar dislocation. Bimalleolar fractures suspected (evaluation complicated by distorted anatomy). - CT Lower Extremity CT CT Interpretation Completed By: Radiologist Summary of CT Findings: IMPRESSION: TRIMALLEOLAR FRACTURE PATTERN ABOVE. An ED physician has reviewed this report. Re-Evaluation - Re-Evaluation First Eval Re-Evaluation Time: 15:30 Change: Unchanged Comment: Initial reduction with persistant posterior dislocation of the ankle. Lower Extremity Course/Dx - Course Course Of Treatment: 44 y/o F p/w L ankle pain after GLF w deformity. - on arrival duskiness of L foot, faint doppler signals of DP. - given dilaudid 1 mgx2 without good effect. Conscious sedation w Ketamine used (Dr. Avina performed sedation for first two attempts). Able to get lateral dislocation reduced but still w post dislocation. Perfusion improved w lateral relocation. 3rd attempt with orthopedics at beside. I performed sedation for this attempt. Successful reduction. CT obtained for operative planning. Placed in short leg splint. Given pain control and crutches. Post reduction NVS intact w good perfusion. - Diagnoses Provider Diagnoses: Fracture dislocation of ankle - Physician Notifications Discussed Care Of Patient With: Francesco Tristan - Ortho Time Discussed With Above Provider: 15:51 Instructed by Provider To: MD Will See In ED - I spoke to Dr. Tristan after my reduction attempt. He will see the patient in the ED. At 1615, Dr. Tristan saw patient at the ED to reduce ankle. Discharge ED - Sign-Out/Discharge Documenting (check all that apply): Patient Departure - discharge home - Discharge Plan Condition: Stable Disposition: HOME Prescriptions: oxyCODONE/Acetamin 5/325 MG* [Percocet 5/325 TAB*] 1 tab PO Q6H PRN 3 Days #12 tab MDD 4 PRN Reason: Pain Patient Education Materials: Ankle Fracture (ED), Moderate Sedation (ED) Referrals: Francesco Tristan MD [Medical Doctor] - Additional Instructions: You were seen in the emergency department for ankle fracture. we were able to successfully reduce in the ER. Please follow up with orthopedics. Please follow up with your primary care doctor in next 2-3 days and return to emergency department for worsening pain, numbness or tingling of her toes, or concerning symptoms. It was a pleasure taking care of you today. - Billing Disposition and Condition Condition: STABLE Disposition: Home - Attestation Statements Document Initiated by Scribe: Yes Documenting Scribe: Hector Tarango Provider For Whom Agustín is Documenting (Include Credential): Joshua Magallon MD Scribe Attestation: Hector Kamara, scribed for Joshua Magallon MD on 10/23/19 at 1738. Scribe Documentation Reviewed: Yes Provider Attestation: The documentation as recorded by the scribeHector accurately reflects the service I personally performed and the decisions made by me, Joshua Magallon MD Status of Scribe Document: Viewed
[2019-10-22] MEDS ORDERED: KETAMINE HCL* 50 MG/ML 10 ML VIAL IV ONE ×2 (14:56→16:10)
--- OUTSIDE RECORDS SUMMARY | 2019-10-22 15:58 | XMS REPORT | Continuity of Care Document ---
:1975 External Reference #:[id number] Author Name Neri Lacnaster M.D. Address [address] [place] [address] [address] [place] [address] Care Team Providers Name Role Phone Matty Leiva MD - Obstetrics & Care Team Information Radiotelephone Technical Operator Gynecology Arsenio Agudelo MD - Orthopaedic Care Team Information Radi[employer]le[employer] Technical Operator [facility] - Surgery Care Team Information Radiotelephone Technical Operator Lissette Baker MD - Physical Care Team Information Radiotelephone Technical Operator Medicine & Rehabilitation Problems Active Problems Provider Date Hypothyroidism Neri Lancaster M.D. Onset: 08/29/2010 Migraine with typical aura Neri Lancaster M.D. Onset: 08/29/2010 Low back pain Neri Lancaster M.D. Onset: 11/11/2011 Degeneration of lumbar intervertebral disc Neri Lancaster M.D. Onset: 06/17 Dysthymia Neri Lancaster M.D. Onset: 01/05/2018 Social History Type Date Description Comments Sex Unknown Tobacco Use Start: Unknown current cigarette smoker 1/2 ppd ETOH Use Rarely consumes alcohol Tobacco Use Start: Unknown Non Smoker recently stopped for surgery Smoking Status Reviewed: 03/03/19 Non Smoker recently stopped for surgery Allergies, Adverse Reactions, Alerts Active Allergies Reaction Severity Comments Date Codeine blackouts and violent 08/02/2007 Ativan rash,vomitting 08/02/2007 Anti-Hist 08/02/2007 Pepcid 08/02/2007 Pepto Bismol 08/02/2007 Shellfish 08/02/2007 control pills 08/02/2007 Benadryl 08/29/2010 Iodine 07/05/2012 Adhesives 09/05/2012 Aspartame 03/07/2013 Betadine causes welts 06/17/2015 ALL Types Of Fish 06/17/[address] scan 11/21/2018 Medications Active Medications SIG Qnty Indications Ordering Date Provider Bupropion take 3 tablets by 270tabs F34.1 Anisha, 08/01/2019 Hydrochloride ER mouth every morning Shea He (XL) for mood 150mg Tablets ER 24HR Ondansetron dissolve 1 tablet on 100tabs R11.0 Silcoff, 06/28/2019 4mg the tongue every 6 Shea He Tablets Dispers hours as needed for nausea. take it 30 to 60 minutes before taking buprenorphine Aripiprazole Take 1 Tablet By 30tabs F34.1 Anisha, 06/28/2019 5mg Mouth Every Morning Shea He Tablets For Mood Levothyroxine Sodium take one tablet by 90tabs E03.9 Anisha, 05/30/2019 mouth every morning Shea He 175mcg Tablets on empty stomach; for thyroid; blood test due Spring 2019 Chantix Continuing Take 1 Tablet By 56tabs F17.210 Anisha, 10/14/2018 Month Dima Mouth Twice A Day Shea He 1mg Tablets With Food To Assist With Smoking Cessation Buprenorphine take 1/2 tablet by 60tabs M54.5 Anisha, 02/02/2018 HCL-Naloxone HCL mouth under the Shea He tongue four times 8-2mg Tablets Sub daily for chronic pain; Rx due 10/06/19; prescribe# [id number] F11.23 M51.36 Tizanidine HCL take 1 tablet by 90tabs M54.5 Neri Lancaster, 12/01/2017 4mg mouth three times a M.D. Tablets day if needed for muscle spasm Topiramate Take 1 Tablet By 180tabs G43.109 Neri Lancaster, 08/03/2017 50mg Tablets Mouth Twice Daily M.D. To Reduce Migraine Frequency Ibuprofen take 1 tablet by 90tabs G43.109 Neri Lancaster, 05/28/2017 800mg Tablets mouth every 8 hours M.D. if needed for Severe Headaches Furosemide Take 1 Tablet by 30tabs R60.0 Neri Lancaster, 02/06/2017 20mg Tablets mouth in the M.D. morning if needed for leg swelling Baclofen 1 by mouth up to 120tabs M51.36 Neri Lancaster, 01/18/2017 20mg Tablets every 6 hours for M.D. back pain/muscle spasms M54.5 Escitalopram Oxalate take 1 tablet by 30tabs F34.1 Neri Lancaster, 2016 20mg mouth once daily for M.D. Tablets mood Sudafed 1 three times a day Unknown 30mg Tablets to four times a day for congestions and st as Needed History Medications Aripiprazole 1 by mouth every 30tabs F34.1 Neri Lancaster, 05/29/2019 - 2mg Tablets day for mood M.D. 06/28/2019 Bupropion take one tablet 30tabs F34.1 Neri Lancaster, 04/12/2019 - Hydrochloride ER (XL) by mouth every M.D. 08/01/2019 morning for mood 300mg Tablets ER 24HR Immunizations CPT Code Status Date Vaccine Lot # [id number] Given 05/29/2013 Flu, Split Virus [id number] [id number] Given 04/15/2011 Pneumococcal Immunization [id number] 86024 Given 02/10/2011 Adacel or Boostrix, TDaP 06817 Given 02/18/1998 Td Immunization U-Flu Refused 05/29/2019 Influenza,Unspecified U-Flu Refused 06/24/2018 Influenza,Unspecified 43217 Refused 06/30/2017 Influenza Virus Vaccine, Quadrivalent, Split, Preservative Free [id number] Refused 07/13/2016 Influenza Virus Vaccine, Quadrivalent, Split, Preservative Free 76765 Refused 08/30/2015 Influenza Virus Vaccine, Quadrivalent, Split, Preservative Free Vital Signs Date Vital Result Comment 09/15/2019 12:00pm BP Systolic 120 mmHg BP Diastolic 72 mmHg Weight 214.00 lb 08/01/2019 10:07am BP Systolic 100 mmHg BP Diastolic 70 mmHg Weight 208.00 lb Results Test Acquired Date Facility Test Result H/L Range Note Laboratory test 05/29/2019 [facility] TSH 2.33 Normal 0.34-5.60 finding [phone] (Thyroid mcIU/mL Stim Horm) Procedures Description No Information Available Medical Devices Description No Information Available Encounters Type Date Location Provider Dx Diagnosis Office Visit 09/15/2019 Main Office Neri Lancaster F34.1 Dysthymic disorder 11:45a M.D. M54.5 Low back pain M51.36 Other intervertebral disc degeneration, lumbar region R11.0 Nausea G43.109 Migraine with aura, not intractable, w/o status migrainosus F17.210 Nicotine dependence, cigarettes, uncomplicated Office Visit 08/01/2019 9:45a Main Office Neri Lancaster F34.1 Dysthymic disorder M.DFer M54.5 Low back pain M51.36 Other intervertebral disc degeneration, lumbar region R11.0 Nausea G43.109 Migraine with aura, not intractable, w/o status migrainosus F17.210 Nicotine dependence, cigarettes, uncomplicated Office Visit 06/28/2019 10:30a Main Office Neri Lancaster F3Judy.1 Dysthymic disorder Shea E03.9 Hypothyroidism, unspecified M54.5 Low back pain M51.36 Other intervertebral disc degeneration, lumbar region R11.0 Nausea Office Visit 05/29/2019 11:00a Main Office Neri Lancaster F34.1 Dysthymic disorder Shea E03.9 Hypothyroidism, unspecified M51.36 Other intervertebral disc degeneration, lumbar region M54.5 Low back pain G43.109 Migraine with aura, not intractable, w/o status migrainosus F17.210 Nicotine dependence, cigarettes, uncomplicated Z23 Encounter for immunization Office Visit 04/12/2019 11:15a Main Office Anisha M51.36 Other intervertebral Shea He disc degeneration, lumbar region M54.5 Low back pain F34.1 Dysthymic disorder F17.210 Nicotine dependence, cigarettes, uncomplicated G43.109 Migraine with aura, not intractable, w/o status migrainosus E03.9 Hypothyroidism, unspecified Z68.31 Body mass index (BMI) 31.0-31.9, adult Assessments Date Code Description Provider 09/15/2019 Fermin Dysthymic disorder Neri Lancaster M.D. 09/15/2019 M54.5 Low back pain Neri Lancaster M.D. 09/15/2019 M51.36 Other intervertebral disc degeneration, Neri Lancaster M.D. lumbar region 09/15/2019 R11.0 Nausea Neri Lancaster M.D. 09/15/2019 G43.109 Migraine with aura, not intractable, without Neri Lancaster M.D. status migraino 09/15/2019 F17.210 Nicotine dependence, cigarettes, Neri Lancaster M.D. uncomplicated 08/01/2019 F34.1 Dysthymic disorder Neri Lancaster M.D. 08/01/2019 M54.5 Low back pain Neri Lancaster M.D. 08/01/2019 M51.36 Other intervertebral disc degeneration, Neri Lancaster M.D. lumbar region 08/01/2019 R11.0 Nausea Neri Lancaster M.D. 08/01/2019 G43.109 Migraine with aura, not intractable, without Neri Lancaster M.D. status migraino 08/01/2019 F17.210 Nicotine dependence, cigarettes, Neri Lancaster M.D. uncomplicated 06/28/2019 F34.1 Dysthymic disorder Neri Lancaster M.D. 06/28/2019 E03.9 Hypothyroidism, unspecified Neri Lancaster M.D. 06/28/2019 M54.5 Low back pain Neri Lancaster M.D. 06/28/2019 M51.36 Other intervertebral disc degeneration, Neri Lancaster M.D. lumbar region 06/28/2019 R11.0 Nausea Neri Lancaster M.D. 05/29/2019 F34.1 Dysthymic disorder Neri Lancaster M.D. 05/29/2019 E03.9 Hypothyroidism, unspecified Neri Lancaster M.D. 05/29/2019 M51.36 Other intervertebral disc degeneration, Neri Lancaster M.D. lumbar region 05/29/2019 M54.5 Low back pain Neri Lancaster M.D. 05/29/2019 G43.109 Migraine with aura, not intractable, without Neri Lancaster M.D. status migraino 05/29/2019 F17.210 Nicotine dependence, cigarettes, Neri Lancaster M.D. uncomplicated 05/29/2019 Z23 Encounter for immunization Neri Lancaster M.D. 04/12/2019 M51.36 Other intervertebral disc degeneration, Neri Lancaster M.D. lumbar region 04/12/2019 M54.5 Low back pain Neri Lancaster M.D. 04/12/2019 F34.1 Dysthymic disorder Neri Lancaster M.D. 04/12/2019 F17.210 Nicotine dependence, cigarettes, Neri Lancaster M.D. uncomplicated 04/12/2019 G43.109 Migraine with aura, not intractable, without Neri Lancaster M.D. status migrainosus 04/12/2019 E03.9 Hypothyroidism, unspecified Neri Lancaster M.D. 04/12/2019 Z68.31 Body mass index (BMI) 31.0-31.9, adult Neri Lancaster M.D. Plan of Treatment Future Appointment(s):11/17/2019 9:30 am - Neri Lancaster M.D. at [facility]/03/2019 - Omar ZamanM51.36 Other intervertebral disc degeneration, lumbar regionComments:Rapid strep and strep culture were negativeFollow up:Stop the suboxone for 2 days as instructed but surgeon, pain management as recommended with that office and the hospital. Discussed the transitioning between suboxone and narcotic pain meds with Dr. Solares.G43.109 Migraine with aura, not intractable, without status qlpkompwZ24.9 Hypothyroidism , gsezxcefrwaT77.818 Encounter for other preprocedural examinationNew Labs:[facility] In[facility], [...] Allergy to seafoodFollow up: Caution with this uyghoroI64.8 Allergy status to other drugs, medicaments and biological suFollow up:Please note multiple medication allergies Pt had allergy to betadine. (This is not noted on the preoperative surgical request) J03.90 Acute tonsillitis, unspecifiedFollow up:all negative results: pt has mildly enlarged cryptic tonsils. Should not be of concern for surgery.Z79.899 Other correction (current) drug bamiomzY38.2 Venous insufficiency (chronic) ( peripheral)Z68.30 Body mass index (BMI) 30.0-30.9, adult Functional Status Description No Information Available Mental Status Description No Information Available Referrals Description No Information Available
--- NOTE | 2019-10-22 16:54 | HP ---
H&P (Free Text) History and Physical: Orthopedic Surgery Consultation H&P Date: 11/09/2019 Requesting Service: ER Chief Complaint: Left ankle pain. History: A 44-year-old woman who sustained a mechanical fall and left ankle injury. She reports that she was walking her dog earlier today when she slipped and fell. She denies any prior problems of the ankle. Denies any other injuries with this fall. Denies head strike or loss of consciousness. The pain is located at the left ankle and is constant moderate, sharp. Pain worse with ankle ROM and lessened when rested. Review of Systems: Negative for fever, recent visual changes, difficulty swallowing, chest pain, shortness of breath, abdominal pain, hematuria, easy bruising, diffuse weakness or lack of coordination, and diffuse rash. PMH: Chronic low back pain, migraines, depression, Nabor's thyroiditis with associated hypothyroidism, history of Santana's palsy PSH: Recent lumbar spine surgery, appendectomy Medications: Baclofen, suboxone, bupropion, Lexapro, furosemide, ibuprofen, levothyroxine, tizanidine, topiramate, varenicline Allergies: Benadryl, fish oil, iodine, lorazepam, aspartame, Pepto-Bismol, codeine, Betadine, sorbitol, famotidine, adhesive tape, shellfish. 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 She is currently not working as she is disabled. She is a smoker. No significant alcohol use. FH: Cancer, hypothyroidism, rheumatoid arthritis Physical Examination: Constitutional: Temp Pulse Resp BP Pulse Ox 98.2 F 111 12 111/90 97 10/22/19 14:40 10/22/19 15:42 10/22/19 16:43 10/22/19 15:42 10/22/19 15:42 General appearance is healthy and non-septic in no acute distress. Cardiovascular/Respiratory: Pulse examination demonstrates positive pedal pulses with brisk capillary refill. There are no varicosities. Heart with a regular rate and rhythm. Lungs sounds clear to auscultation bilaterally. Abdomen: Soft and nontender Lymphatic: No lymphadenopathy appreciated. Skin: Bilateral upper and lower extremity examination demonstrates no ulcerative lesions. Psychiatric / Neurological: Appropriate affect. Alert and oriented to person, place and time. There is no significant abnormality in coordination appreciated. Normoreflexive deep tendon reflex of the affected extremity. Musculoskeletal: Bilateral upper extremities and contralateral lower extremity show full range of motion with no evidence of instability and no tenderness with palpation and 5 /5 strength. There is no gross deformity. There is a deformity at the ankle Skin intact 5/5 motor strength with intact sensation to light touch There is no global swelling, edema, or varicosities. TTP at ankle Palpable DP pulse. Flexes and extends toes. Imaging: X-rays were obtained, and independently interpreted and show a left trimalleolar ankle fracture dislocation Impression and Plan: Left trimalleolar ankle fracture dislocation. Verbal consent was obtained for an ankle hematoma block with 1% plain lidocaine, ankle closed reduction and placement of a short leg plaster splint. Ketamine was used for sedation. I performed a reduction maneuver and held this while the splint was placed. The procedure was well tolerated and post-reduction xrays showed satisfactory alignment. She remained NVI after the procedure. We discussed both nonoperative and operative treatment options. My recommendation is surgical intervention. We discussed the risks/benefits and pros/cons of both options. After this discussion, we came to the decision that we would move forward with surgery, which will be a left ankle fracture open reduction and internal fixation. For now, nonweightbearing in the left lower extremity, rest and strict elevation. I will have the emergency room obtain a CT scan to further assess the fracture pattern. Francesco Tristan MD
[2019-10-22] MEDS ORDERED: oxyCODONE/Acetamin 10/325(NF) TAB PO ONE (17:08)
[2019-10-22] MEDS ORDERED: Acetaminophen TAB* 325 MG PO ONE (18:00)
[2019-10-22] MEDS ORDERED: oxyCODONE TAB* 5 MG TAB PO ONE (18:00)
[2019-10-22 19:15] VITALS: BP 104/79
== END 2019-10-22 19:12 | disposition home or self-care (01) ==
LOC: ED 14:32
DX: S82.852A Displaced trimalleolar fracture of left lower leg, initial encounter for closed fracture (principal); W01.0XXA Fall on same level from slipping, tripping and stumbling without subsequent striking against object, initial encounter; Y93.K1 Activity, walking an animal; Y92.9 Unspecified place or not applicable; E06.3 Autoimmune thyroiditis; F41.9 Anxiety disorder, unspecified; F32.9 Major depressive disorder, single episode, unspecified; Z79.899 Other long term (current) drug therapy; Z91.041 Radiographic dye allergy status; Z88.5 Allergy status to narcotic agent; Z91.013 Allergy to seafood; Z88.8 Allergy status to other drugs, medicaments and biological substances; Z91.048 Other nonmedicinal substance allergy status; Z87.891 Personal history of nicotine dependence
CPT/HCPCS: 27818; 96374; 96375; 99156; 99157; 99285; A9270-GY; J1170; J2405

== ENCOUNTER 2019-10-24 07:40 | Day surgery (SDC) | payer MEDICARE, MEDICAID ==
[~2019-10-24 07:40] MED LIST changes: -Acetaminophen TAB* 325 MG PO PRN; -Bacitracin INJECTION* 50,000 UNITS ONE; -BuPROPion XL* 150 MG TAB.XL PO SCH; -Dexamethasone IV* 4 MG/ML 1 ML (4 MG) IV SLOW PU ONE; -Dexamethasone IV* 4 MG/ML 1 ML (4 MG) ONE; -EPHEDrine (Pressors)* 50 MG/ML VIAL ONE; -Escitalopram * 20 MG TABLET PO SCH; -Furosemide TAB* 20 MG PO SCH; -HYDROcodone/ACETAMIN 5-325 MG* 1 TAB PO PRN; -HYDROmorphone INJ1* 1 MG/ML SYRINGE IV SLOW PU ONE; -HYDROmorphone INJ1* 1 MG/ML SYRINGE ONE; -KETAMINE HCL* 50 MG/ML 10 ML VIAL ONE; -Ketorolac INJ* 30 MG/ML 1 ML VIAL ONE; -LEVOTHYROXINE 25 MCG PO SCH; -Levothyroxine TAB* 175 MCG TAB PO SCH; -Lidocaine 1% w EPI 1:200,000* 30 ML VIAL ONE; -Lidocaine 2% PF * 5 ML VIAL ONE; -Midazolam* 1 MG/ML 5 ML VIAL (5 MG) ONE; -Naloxone* 0.4 MG/ML 1 ML VIAL IV PRN; -Ondansetron INJ* 2 MG/ML VIAL ONE; -Propofol* 10 MG/ML 20 ML BTL ONE; -Remifentanil* 2 MG VIAL ONE; -Rocuronium* 10 MG/ML VIAL ONE; -Senna TAB PO PRN; -Succinylcholine* 20 MG/ML 10 ML VIAL ONE; -Thrombin 5,000 UNITS* 1 APPLIC KIT - topical use - TOPICAL ONE; -ceFAZolin 2 GM in NS PREMIX(*) 2 GM/100 ML BAG IVPB ONE; -fentaNYL* 50 MCG/ML 2 ML VIAL (100 MCG VIAL) IV PRN; -fentaNYL* 50 MCG/ML 2 ML VIAL (100 MCG VIAL) ONE; -fentaNYL* 50 MCG/ML 5 ML VIAL (250 MCG VIAL) ONE; -oxyCODONE SR TAB(*) 20 MG TAB.SR PO SCH; -oxyCODONE TAB* 5 MG TAB PO PRN; -oxyCODONE/Acetamin 5/325 MG* TAB ONE
[2019-10-24] MEDS ORDERED: ceFAZolin 2 GM PREMIX in ORs 2 GM/50 ML BAG ONE (07:55)
[2019-10-24] MEDS ORDERED: Midazolam* 1 MG/ML 2 ML VIAL (2 MG) ONE ×2 (08:43→09:41)
[2019-10-24] MEDS ORDERED: Lidocaine 2% PF * 5 ML VIAL ONE ×2 (08:43→08:45)
[2019-10-24] MEDS ORDERED: Propofol* 10 MG/ML 20 ML BTL ONE ×2 (08:43→10:36)
[2019-10-24] MEDS ORDERED: fentaNYL* 50 MCG/ML 2 ML VIAL (100 MCG VIAL) ONE (08:44)
[2019-10-24] MEDS ORDERED: Metoprolol Tartrate IV* 1 MG/ML 5 ML VIAL ONE ×3 (08:46→08:50)
[2019-10-24] MEDS ORDERED: nitroGLYCERIN IV VIAL* 5 MG/ML VIAL ONE (08:51)
[2019-10-24] MEDS ORDERED: Dexmedetomidine* 200 MCG/2 ML 2 ML VIAL ONE (09:00)
[2019-10-24] MEDS ORDERED: ROPIVACAINE 5 MG/ML 30 ML BTL (0.5%) ONE (09:40)
[2019-10-24] MEDS ORDERED: Bupivacaine 0.5%* 50 ML MDV VIAL ONE (09:44)
[2019-10-24] MEDS ORDERED: Rocuronium* 10 MG/ML VIAL ONE (10:24)
[2019-10-24] MEDS ORDERED: Phenylephrine 40 MCG/ML SYRINGE ONE (10:32)
[2019-10-24] MEDS ORDERED: Dexamethasone IV* 4 MG/ML 1 ML (4 MG) ONE (10:35)
[2019-10-24] MEDS ORDERED: Ketorolac INJ* 30 MG/ML 1 ML VIAL ONE (10:35)
[2019-10-24] MEDS ORDERED: Metoclopramide IV* 5 MG/ML 2 ML VIAL ONE (10:35)
[2019-10-24] MEDS ORDERED: Ondansetron INJ* 2 MG/ML VIAL ONE (10:35)
[2019-10-24] MEDS ORDERED: oxyCODONE TAB* 5 MG TAB PO PRN (11:02)
[2019-10-24] MEDS ORDERED: Naloxone* 0.4 MG/ML 1 ML VIAL IV PRN (11:02)
[2019-10-24] MEDS ORDERED: Acetaminophen IV 1GM/100ML * 100 ML ONE (11:24)
[2019-10-24] MEDS ORDERED: Sugammadex * 200 MG/2 ML VIAL IV PUSH ONE (11:37)
[2019-10-24] MEDS ORDERED: HYDROmorphone INJ1* 1 MG/ML SYRINGE ONE (12:26)
[2019-10-24] MEDS: HYDROmorphone INJ1* 1 MG/ML SYRINGE IV PRN ×2 (12:27→13:04)
--- NOTE | 2019-10-24 12:58 | OP ---
Operative Report - Blank - Operative Report Date of Operation: 10/24/19 Note: PATIENT: Yoselyn Driscoll DATE OF : 1975 DATE OF SURGERY: 10/24/2019 SURGEON: Francesco Tristan MD RACKET STRINGER: FIDELINA Au, whos assistance was necessary for positioning, retraction, help with instrumentation, and closure. ANESTHESIOLOGIST: Dr. Cerna PREOPERATIVE DIAGNOSIS: Left trimalleolar ankle fracture POSTOPERATIVE DIAGNOSIS: Left trimalleolar ankle fracture and disruption of the distal tibia-fibula syndesmosis. OPERATION: 1. Left trimalleolar ankle fracture open reduction and internal fixation of medial and lateral malleoli. 2. Left distal tibia-fibula syndesmosis open reduction and internal fixation. ANESTHESIA: General + block IMPLANTS: Arthrex ankle fracture set plate and screws TOURNIQUET TIME: About 1 hour with a well-padded thigh tourniquet at 250mmHg SPECIMENS: none ESTIMATED BLOOD LOSS: minimal COMPLICATIONS: none STATUS: Stable from the operating room to the recovery room and then home. INDICATIONS FOR PROCEDURE: Yoselyn sustained a left ankle fracture dislocation that was reduced in the emergency room 2 days ago. Both operative and non operative treatment alternatives were reviewed. Further, the nature and risks of surgery were reviewed in careful detail, in the office as well as the pre-operative holding area. Our discussions regarding the risks of surgery included, but were not limited to, infection, wound problems, nerve injury, neuroma, RSD, persistent symptoms, blood clot, nonunion, malunion, post-traumatic arthritis, hardware failure, failure of the surgery, and even the remote chance of catastrophic complication. DESCRIPTION OF PROCEDURE: The patient was seen in the preoperative holding unit and informed written consent was obtained. The appropriate extremity was marked. The patient was then brought to the operating room and carefully positioned on the operating room table. Anesthesia was induced. All bony prominences were padded with great care. A well-padded thigh tourniquet was placed. A chlorhexidine based pre- scrub was performed followed by a chloraprep prep and drape in standard sterile fashion. A surgical safety pause was then conducted in which we confirmed the appropriate patient, extremity, planned procedure, availability of equipment, indication and administration of prophylactic antibiotics, and DVT prophylaxis in the form of a compression boot on the non-surgical extremity. I began with Esmarch exsanguination of the limb and inflated the tourniquet. I then utilized a laterally based incision overlying the distal fibula. Great care was taken to protect the superficial peroneal nerve, which was not visualized within the field of view. I dissected down through the soft tissue layers to expose the distal fibula. I then exposed the fractures. Fracture hematoma was removed. I gained a reduction utilizing a pointed reduction clamp. There was extensive comminution. I placed an Arthrex distal fibula anatomic plate laterally and then confirmed the reduction and the position of the plate fluoroscopically. I placed screws to hold the plate to the bone. For the large free fragment anteriorly, I placed a 3.0 mm cortical screw to hold this fixated. The provisional fixation was removed and then I again confirmed fluoroscopically the appropriate position of the plate and screw lengths. I made an approximately 4cm incision over the medial malleolus. The fracture was exposed and hematoma was removed. Reduction of the medial malleolar fracture was obtained with a pointed reduction clamp. I placed guidewires for 4.0 mm cannulated screws. I confirmed the position of the guidewires fluoroscopically. I then overdrilled the wires and placed 2 partially threaded 4.0 mm cannulated screws. I then removed the guidewires and obtained fluoroscopic images. At this point, I performed a stress fluoroscopic examination. I utilized a Cotton test, as well as an external rotation stress test, to evaluate the distal tib-fib syndesmosis. There was subtle syndesmotic instability appreciated fluoroscopically. I then explored the syndesmosis directly and again appreciated abnormal motion. Therefore, I proceeded with open reduction and internal fixation of the distal tib-fib syndesmosis. We held the syndesmosis reduced and placed a syndesmotic tight rope. Fluoroscopic images were obtained demonstrating a good reduction of both the fractures and the syndesmosis. I also performed a posteriorly directed stress test and there was no posterior instability appreciated, so I elected to treat the posterior malleolar fracture in a closed manner. At this point, we irrigated copiously and then closed in layers meticulously utilizing 3-0 Monocryl for the deep and subdermal layers and desi for the skin. A sterile dressing was then applied followed by a splint with the ankle in a neutral position. The patient was then awakened from anesthesia and transferred to the recovery room in stable condition. There were no complications. All needle and sponge counts were correct at the end of the case. ATTESTATION: I attest I was present and scrubbed and performed the critical portions of the procedure myself. POSTOPERATIVE PLAN: The postop plan is for [id number] for an anticipated duration of 6 weeks. Follow-up will be in 2 weeks. At that time we will likely transition into a [id number] short-leg cast. We will use aspirin for DVT prophylaxis.
[2019-10-24] MEDS ORDERED: Buprenorp/Nalox 2-0.5 MG SL TAB PO ONE (13:00)
[2019-10-24 14:00] VITALS: BP 97/65
== END 2019-10-24 13:57 | disposition home or self-care (01) ==
LOC: OR 07:40
PROVIDERS: ATTEND Orthopaedic Surgery
DX: S82.852A Displaced trimalleolar fracture of left lower leg, initial encounter for closed fracture (principal); S99.812A Other specified injuries of left ankle, initial encounter; W01.0XXA Fall on same level from slipping, tripping and stumbling without subsequent striking against object, initial encounter; Y93.K1 Activity, walking an animal; Y92.9 Unspecified place or not applicable; G89.29 Other chronic pain; J45.909 Unspecified asthma, uncomplicated; F41.8 Other specified anxiety disorders; E06.3 Autoimmune thyroiditis; R00.2 Palpitations; E03.9 Hypothyroidism, unspecified
CPT/HCPCS: 76000; 81025; A9270-GY; C1713; C1776; J0690; J1100; J1170; J1885; J2250; J2405; J2704; J2765; J2795; J3010; J3490